=== PATIENT | female | born 1970 | race Caucasian/White ===

== ENCOUNTER 2017-11-19 01:29 | Inpatient (IN) | payer BC, SELFPAY ==
[2017-11-19] MEDS ORDERED: ONDANSETRON 4 MG/2 ML VIAL ONE ×2 (01:32→12:12)
[2017-11-19] MEDS ORDERED: KETOROLAC 30 MG/ML INJ ONE (01:32)
[2017-11-19] MEDS ORDERED: NA CHLORIDE 0.9% 1,000 ML ONE ×2 (01:32→03:17)
[2017-11-19] MEDS ORDERED: MORPHINE 4 MG/ML SYR ONE (01:32)
[2017-11-19 02:51] LABS: Absolute Lymphocytes (CBC) 1.5 K/uL (0.7-4.9); Absolute Monocytes 0.2 K/uL (0.1-1.3); Basophils % 1.1 % (0-1.3); Eosinophils % 0.5 % (0-4.4); Hematocrit 57.7 % (36.0-45.0); Lymphocytes % 14.2 % (15.3-44.8); MCH 32.4 pg (27.0-35.0); MPV 11.1 fL (7.6-11.3); Monocytes % 1.4 % (3.3-12.3); RBC Red Blood Cell Count 5.95 M/uL (3.86-4.86)
[2017-11-19 02:57] LABS: Potassium 3.5 mEq/L (3.6-5.0)
[2017-11-19 03:04] LABS: Albumin 4.7 g/dL (3.2-5.5); Bilirubin Direct 0.3 mg/dL (0-0.2); Bilirubin Total 1.7 mg/dL (0.3-1.2)
[2017-11-19] MEDS ORDERED: NA CHLORIDE 0.9% 100 ML IV ONE (03:17)
[2017-11-19] MEDS ORDERED: TAMSULOSIN 0.4 MG SR CAP ONE (03:17)
[2017-11-19] MEDS ORDERED: CEFTRIAXONE 1000 MG/VIAL ONE (03:17)
[2017-11-19] MEDS ORDERED: Levofloxacin500mg IV 500 MG/100 ML BAG IV ONE (04:33)
--- NOTE | 2017-11-19 04:34 | EDPHYS ---
Physician Documentation [facility] Name: Desire Green Age: 47 yrs Sex: Female : 1970 Arrival Date: 11/19/2017 Time: 01:30 Bed 5 Private MD: ED Physician Celestine Cha HPI: 11/19 02:30 This 47 yrs old Female presents to ER via EMS with complaints of abdominal snw pain. 02:30 The patient presents with abdominal pain right lower quadrant. Onset: The snw symptoms/episode began/occurred suddenly, 24 hour(s) ago, and became persistent. The symptoms radiate to right back. The symptoms are described as sharp, stabbing. Severity of pain: At its worst the pain was severe. The patient has experienced similar episodes in the past. It is unknown whether or not the patient has recently seen a physician. 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 - Social history:: Smoking status: Patient uses tobacco products, smokes one pack cigarettes per day. ROS: 02:30 Eyes: Negative for injury, pain, redness, and discharge, ENT: Negative for injury, snw pain, and discharge, Neck: Negative for injury, pain, and swelling, Cardiovascular: Negative for chest pain, palpitations, and edema, Respiratory: Negative for shortness of breath, cough, wheezing, and pleuritic chest pain, : Negative for injury, bleeding, discharge, and swelling, MS/Extremity: Negative for injury and deformity, Skin: Negative for injury, rash, and discoloration, Neuro: Negative for headache, weakness, numbness, tingling, and seizure. 02:30 Constitutional: Positive for malaise, poor PO intake. 02:30 Abdomen/GI: Positive for abdominal pain, nausea and vomiting. 02:30 Back: Positive for radiated pain. Exam: 03:10 Head/Face: Normocephalic, atraumatic. Eyes: Pupils equal round and reactive to light, snw extra-ocular motions intact. Lids and lashes normal. Conjunctiva and sclera are non-icteric and not injected. Cornea within normal limits. Periorbital areas with no swelling, redness, or edema. ENT: Nares patent. No nasal discharge, no septal abnormalities noted. Tympanic membranes are normal and external auditory canals are clear. Oropharynx with no redness, swelling, or masses, exudates, or evidence of obstruction, uvula midline. Mucous membranes moist. Neck: Trachea midline, no thyromegaly or masses palpated, and no cervical lymphadenopathy. Supple, full range of motion without nuchal rigidity, or vertebral point tenderness. No Meningismus. Chest/axilla: Normal chest wall appearance and motion. Nontender with no deformity. No lesions are appreciated. Cardiovascular: Regular rate and rhythm with a normal S1 and S2. No gallops, murmurs, or rubs. Normal PMI, no JVD. No pulse deficits. Respiratory: Lungs have equal breath sounds bilaterally, clear to auscultation and percussion. No rales, rhonchi or wheezes noted. No increased work of breathing, no retractions or nasal flaring. 03:10 MS/ Extremity: Pulses equal, no cyanosis. Neurovascular intact. Full, normal range of motion. Neuro: Awake and alert, GCS 15, oriented to person, place, time, and situation. Cranial nerves II-XII grossly intact. Motor strength 5/5 in all extremities. Sensory grossly intact. Cerebellar exam normal. Normal gait. 03:10 Constitutional: The patient appears alert, anxious, frail, dry, weathered 03:10 Abdomen/GI: Inspection: abdomen appears normal, Bowel sounds: normal, Palpation: moderate abdominal tenderness, in the posterior aspect of right lateral abdomen, right upper quadrant and right lower quadrant. 03:10 Skin: Appearance: Color: bronzed, Temperature: normal temperature, Moisture: dry, Turgor: is poor. Vital Signs: 01:30 BP 146 / 97; Pulse 104; Resp 30; Temp 98.1; Pulse Ox 100% on R/A; Weight 44.45 kg (R); aa1 Height 5 ft. 2 in. (157.48 cm); Pain 10/10; 02:05 BP 109 / 70; Pulse 78; Resp 18; Pulse Ox 97% on R/A; tl2 02:44 BP 109 / 66; Pulse 79; Resp 18; Pulse Ox 97% on R/A; Pain 5/10; tl2 04:26 BP 98 / 56; Pulse 86; Resp 16; Pulse Ox 99% on R/A; Pain 0/10; ao 05:55 BP 101 / 74; Pulse 82; Resp 16; Pulse Ox 99% on R/A; Pain 0/10; ao 01:30 Body Mass Index 17.92 (44.45 kg, 157.48 cm) aa1 MDM: 01:52 Patient medically screened. snw 03:09 Data reviewed: vital signs, nurses notes. Data interpreted: Pulse oximetry: on room air snw is 97 %. Counseling: I had a detailed discussion with the patient and/or guardian regarding: the historical points, exam findings, and any diagnostic results supporting the discharge/admit diagnosis, lab results, radiology results, the need for outpatient follow up, to return to the emergency department if symptoms worsen or persist or if there are any questions or concerns that arise at home, smoking cessation. Special discussion: Based on the patient's Hx, exam, and Dx evaluation, there is no indication for emergent surgery or inpatient Tx. It is understood by the patient/guardian that if the Sx's persist or worsen they need to return immediately for re-evaluation. Based on the history and exam findings, there is no indication for further emergent testing or inpatient evaluation. I discussed with the patient/guardian the need to see the primary care provider for further evaluation of the symptoms. I discussed with the patient/guardian the need to see the urologist for further evaluation of the symptoms. 03:14 Physician consultation: Celestine Cha MD was contacted at 03:14, regarding patient's snw condition. Awaiting: labs results, CT scan results. 11/19 01:41 Order name: Amylase, Serum tl2 11/19 01:41 Order name: Basic Metabolic Panel tl2 11/19 01:41 Order name: CBC with Diff tl2 11/19 01:41 Order name: Creatinine for Radiology tl2 11/19 01:41 Order name: Hepatic Function tl2 11/19 01:41 Order name: Lipase tl2 11/19 01:41 Order name: Urine Microscopic Only tl2 11/19 02:53 Order name: CBC with Automated Diff; Complete Time: 03:08 EDMS 11/19 02:58 Order name: Basic Metabolic Panel; Complete Time: 03:08 EDMT 11/19 02:58 Order name: Lipase; Complete Time: 03:08 EDMT 11/19 03:04 Order name: Liver (Hepatic) Function; Complete Time: 03:08 EDMT 11/19 03:04 Order name: Amylase Level; Complete Time: 03:08 EDMT 11/19 04:57 Order name: Urine Microscopic Only EDMS 11/19 05:01 Order name: Blood Culture EDMT 11/19 04:57 Order name: Stone Protocol EDMT 11/19 05:01 Order name: Urine Culture EDMT 11/19 05:25 Order name: Comprehensive Metabolic Panel EDMT 11/19 05:25 Order name: Comprehensive Metabolic Panel EDMT 11/19 05:25 Order name: Protime (+INR) EDMT 11/19 05:25 Order name: Protime (+INR) EDMT 11/19 05:25 Order name: PTT, Activated Partial Thromb EDMT 11/19 01:41 Order name: Urine Test (obtain specimen); Complete Time: 03:53 tl2 11/19 01:41 Order name: IV Saline Lock; Complete Time: 01:41 tl2 11/19 01:41 Order name: Labs collected and sent; Complete Time: 01:41 tl2 11/19 01:41 Order name: Urine Dipstick-Ancillary (obtain specimen); Complete Time: 03:53 tl2 11/19 04:39 Order name: NPO; Complete Time: 04:41 [facility] 11/19 05:25 Order name: CONS Pharmacy Consult EDMT 11/19 05:25 Order name: CONS Physician Consult [facility] 11/19 05:25 Order name: NPO [facility] Administered Medications: 01:41 Drug: morphine 4 mg Route: IVP; Site: left antecubital; tl2 02:43 Follow up: Response: No adverse reaction; Pain is decreased tl2 01:41 Drug: Zofran 4 mg Route: IVP; Site: left antecubital; tl2 02:43 Follow up: Response: No adverse reaction; Nausea is decreased tl2 01:41 Drug: TORadol 30 mg Route: IVP; Site: left antecubital; tl2 02:43 Follow up: Response: No adverse reaction; Pain is decreased tl2 01:41 Drug: NS 0.9% 1000 ml Route: IV; Rate: 1000 ml; Site: left antecubital; tl2 02:44 Follow up: IV Status: Completed infusion; IV Intake: 1000ml tl2 03:15 Drug: NS 0.9% 1000 ml Route: IV; Rate: 1 bolus; Site: left antecubital; ao 04:50 Follow up: IV Status: Completed infusion; IV Intake: 1000ml ao 03:27 Drug: Rocephin 1 grams Route: IV; Rate: calculated rate; Site: left antecubital; ao 04:46 Follow up: IV Status: Completed infusion; IV Intake: 100ml ao 03:27 Drug: Flomax 0.4 mg Route: PO; ao 04:50 Follow up: Response: No adverse reaction ao 04:36 Drug: levofloxacin 500 mg Volume: 100 ml; Route: IVPB; Infused Over: 60 mins; Site: ao left antecubital; 05:29 Follow up: IV Status: Completed infusion; IV Intake: 100ml ao 04:40 Drug: NS 0.9% with KCl 20 mEq/L 1000 ml {Note: As verbally ordered by Dr cha to be ao run at 125 ML/HR.} Route: IV; Rate: ml/hr; Site: left antecubital; 05:29 Follow up: IV Status: Infusion continued upon admission ao Disposition: 04:38 Co-signature as Attending Physician, Celestine Cha MD I agree with the assessment and vernell plan of care. Disposition: 11/19/17 04:34 Hospitalization ordered by Ryan Vazquez for Inpatient Admission. Preliminary diagnosis are Abdominal tenderness, Acute tubulo-interstitial nephritis, Hydronephrosis with renal and ureteral calculous obstruction - 9 mm proximal ureteral calculi, Hypokalemia. - Bed requested for Telemetry/MedSurg (Inpatient). - Status is Inpatient Admission. ao - Condition is Stable. - Problem is new. - Symptoms have improved. UTI on Admission? Yes Signatures: Dispatcher [employer] EDMT Becca Corona RN RN mw Kern, Alissa, RN RN aa1 Celestine Cha MD MD cha Therrien, Shelly, BAILING MACHINE OPERATOR-C BAILING MACHINE OPERATOR-Randall Diehl em1 Trever Powell RN RN ao Knox, Taylor, RN RN tl2 Corrections: (The following items were deleted from the chart) 06:10 02:13 Stone Protocol+CT.RAD.BRZ ordered. snw ao 06: 03:30 Urine Culture+BA.LAB.BRZ ordered. vernell ao 06: 03:30 BLOOD CULTURE*+BA.LAB.BRZ ordered. [facility] ao : 04:11 URINE DIPSTICK--ANCILLARY+U.LAB.BRZ ordered. em ao : 04:11 URINE --ANCILLARY+UC.LAB.BRZ ordered. [facility] ao :10 04:39 Abdomen 1 View (KUB)+RAD.RAD.BRZ ordered. [facility] ao
--- NOTE | 2017-11-19 04:34 | ER ---
Nurse's Notes [facility] Name: Desire Green Age: 47 yrs Sex: Female : 1970 Arrival Date: 11/19/2017 Time: 01:30 Bed 5 Private MD: Diagnosis: Abdominal tenderness;Acute tubulo-interstitial nephritis;Hydronephrosis with renal and ureteral calculous obstruction-9 mm proximal ureteral calculi;Hypokalemia Presentation: 11/19 01:30 Presenting complaint: EMS states: pt c/o R sided abd pain x 24 hrs that radiates to aa1 back. Also reports N/V. Transition of care: patient was not received from another setting of care. Onset of symptoms was November 18, 2017. Care prior to arrival: None. 01:30 Method Of Arrival: EMS: [facility] aa1 01:30 Acuity: ALISON 3 aa1 Triage Assessment: 01:44 General: Appears in no apparent distress. uncomfortable, cachectic, Behavior is aa1 anxious, restless. Pain: Complains of pain in right upper quadrant and right lower quadrant Pain radiates to back Pain currently is 10 out of 10 on a pain scale. Quality of pain is described as sharp, shooting, stabbing, Is continuous. Neuro: Level of Consciousness is awake, alert, obeys commands, Oriented to person, place, time, situation. Respiratory: Airway is patent Respiratory effort is even, unlabored, Respiratory pattern is regular, symmetrical. GI: Abdomen is non-distended, Reports lower abdominal pain, upper abdominal pain, nausea, vomiting. Derm: Skin is intact, is healthy with good turgor, Skin is pink, warm \T\ dry. 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 - Social history:: Smoking status: Patient uses tobacco products, smokes one pack cigarettes per day. Screenin:54 Abuse screen: Denies threats or abuse. Nutritional screening: No deficits noted. tl2 Tuberculosis screening: No symptoms or risk factors identified. Fall Risk None identified. Assessment: 01:54 General: see triage assessment. tl2 02:49 Reassessment: Patient appears in no apparent distress at this time. Patient and/or ao family updated on plan of care and expected duration. Pain level reassessed. Patient resting with no SS of distress. 03:52 Reassessment: Patient appears in no apparent distress at this time. Patient and/or tl2 family updated on plan of care and expected duration. Pain level reassessed. Patient is alert, oriented x 3, equal unlabored respirations, skin warm/dry/pink. 04:50 Reassessment: Patient appears in no apparent distress at this time. Patient and/or ao family updated on plan of care and expected duration. Pain level reassessed. Patient is alert, oriented x 3, equal unlabored respirations, skin warm/dry/pink. 05:55 Reassessment: Patient and/or family updated on plan of care and expected duration. Pain ao level reassessed. Patient is alert, oriented x 3, equal unlabored respirations, skin warm/dry/pink. Report called to NAEEM Jain. Patient o be taken to her room. Vital Signs: 01:30 BP 146 / 97; Pulse 104; Resp 30; Temp 98.1; Pulse Ox 100% on R/A; Weight 44.45 kg (R); aa1 Height 5 ft. 2 in. (157.48 cm); Pain 10/10; 02:05 BP 109 / 70; Pulse 78; Resp 18; Pulse Ox 97% on R/A; tl2 02:44 BP 109 / 66; Pulse 79; Resp 18; Pulse Ox 97% on R/A; Pain 5/10; tl2 04:26 BP 98 / 56; Pulse 86; Resp 16; Pulse Ox 99% on R/A; Pain 0/10; ao 05:55 BP 101 / 74; Pulse 82; Resp 16; Pulse Ox 99% on R/A; Pain 0/10; ao 01:30 Body Mass Index 17.92 (44.45 kg, 157.48 cm) aa1 ED Course: 01:30 Patient arrived in ED. em1 01:30 Arm band placed on right wrist. Patient placed in an exam room, on a stretcher. aa1 01:35 Patient has correct armband on for positive identification. Placed in gown. Bed in low aa1 position. Call light in reach. Pulse ox on. NIBP on. Warm blanket given. 01:35 Initial lab(s) drawn, by me, sent to lab. Inserted saline lock: 22 gauge in right aa1 antecubital area, using aseptic technique. Blood collected. 01:43 Triage completed. aa1 01:52 Kamla Corcoran FNP-C is [facility]. snw 01:52 Celestine Cha MD is Attending Physician. snw 02:30 Trever Powell RN is Primary Nurse. ao 03:50 First set of blood cultures drawn by me. mt 03:50 Inserted saline lock: 22 gauge in right forearm, using aseptic technique. mt 04:10 Second set of blood cultures drawn. mt 04:33 Ryan Vazquez MD is Hospitalizing Provider. vernell 04:57 Stone Protocol In Process Unspecified. EDMS 05:20 Urine Microscopic Only Sent. ao 05:20 Lipase Sent. ao 05:21 Hepatic Function Sent. ao 05:21 Creatinine for Radiology Sent. ao 05:21 CBC with Diff Sent. ao 05:21 Basic Metabolic Panel Sent. ao 05:21 Amylase, Serum Sent. ao 05:23 Urine Microscopic Only Sent. ao 05:32 No provider procedures requiring assistance completed. Patient admitted, IV remains in ao place. Administered Medications: 01:41 Drug: morphine 4 mg Route: IVP; Site: left antecubital; tl2 02:43 Follow up: Response: No adverse reaction; Pain is decreased tl2 01:41 Drug: Zofran 4 mg Route: IVP; Site: left antecubital; tl2 02:43 Follow up: Response: No adverse reaction; Nausea is decreased tl2 01:41 Drug: TORadol 30 mg Route: IVP; Site: left antecubital; tl2 02:43 Follow up: Response: No adverse reaction; Pain is decreased tl2 01:41 Drug: NS 0.9% 1000 ml Route: IV; Rate: 1000 ml; Site: left antecubital; tl2 02:44 Follow up: IV Status: Completed infusion; IV Intake: 1000ml tl2 03:15 Drug: NS 0.9% 1000 ml Route: IV; Rate: 1 bolus; Site: left antecubital; ao 04:50 Follow up: IV Status: Completed infusion; IV Intake: 1000ml ao 03:27 Drug: Rocephin 1 grams Route: IV; Rate: calculated rate; Site: left antecubital; ao 04:46 Follow up: IV Status: Completed infusion; IV Intake: 100ml ao 03:27 Drug: Flomax 0.4 mg Route: PO; ao 04:50 Follow up: Response: No adverse reaction ao 04:36 Drug: levofloxacin 500 mg Volume: 100 ml; Route: IVPB; Infused Over: 60 mins; Site: ao left antecubital; 05:29 Follow up: IV Status: Completed infusion; IV Intake: 100ml ao 04:40 Drug: NS 0.9% with KCl 20 mEq/L 1000 ml {Note: As verbally ordered by Dr cha to be ao run at 125 ML/HR.} Route: IV; Rate: ml/hr; Site: left antecubital; 05:29 Follow up: IV Status: Infusion continued upon admission ao Intake: 02:44 IV: 1000ml; Total: 1000ml. tl2 04:46 IV: 100ml; Total: 1100ml. ao 04:50 IV: 1000ml; Total: 2100ml. ao 05:29 IV: 100ml; Total: 2200ml. ao Outcome: 04:34 Decision to Hospitalize by Provider. vernell 05:32 Admitted to Tele accompanied by tech, room 410, with chart, Report called to NAEEM Jain ao 05:32 Condition: stable 05:32 Instructed on the need for admit. 06:10 Patient left the ED. ao Signatures: Dispatcher [employer] EDMS Kelle Valderrama RN RN aa1 Celestine Cha MD MD cha Therrien, Shelly, REJECT OPENER AND FILLER-C REJECT OPENER AND FILLER-Randall Diehl em1 Trever Powell RN RN ao Knox, Taylor, RN RN tl2 Isadora Lombardo w[place] Corrections: (The following items were deleted from the chart) 04:44 04:43 NS 0.9% with KCl 20 mEq/L 1000 ml IV at ml/hr in left antecubital ao ao 06:10 05:22 URINE --ANCILLARY+UC.LAB.BRZ drawn and sent. ao ao 06:10 05:22 URINE DIPSTICK--ANCILLARY+U.LAB.BRZ drawn and sent. ao ao 06:10 05:22 BLOOD CULTURE*+BA.LAB.BRZ drawn and sent. ao ao 06:10 05: To radiology for Stone Protocol+CT.RAD.JESIKA. ao ao :23 Urine Culture+BA.LAB.JESIKA drawn and sent. ao ao : To radiology for Abdomen 1 View (KUB)+RAD.RAD.JESIKA. ao ao
[2017-11-19] MEDS ORDERED: NS KCL 20MEQ 1,000 ML IV ONE (04:39)
[2017-11-19] MEDS ORDERED: ONDANSETRON 4 MG/2 ML VIAL IV PRN (05:22)
[2017-11-19] MEDS ORDERED: POTASSIUM CL SA 10 MEQ TAB PO ONE (06:12)
--- NOTE | 2017-11-19 06:58 | P.HP ---
Certification for Inpatient Patient admitted to: Inpatient With expected LOS: >2 Midnights Patient will require the following post-hospital care: None Practitioner: I am a practitioner with admitting privileges, knowledge of patient current condition, hospital course, and medical plan of care. Services: Services provided to patient in accordance with Admission requirements found in Title 42 Section 412.3 of the Code of Federal Regulations Patient History Date of Service: 11/19/17 Reason for admission: Nephrolithiasis with hydronephrosis History of Present Illness: Patient is a 47-year-old female who presents to the hospital with flank tenderness. Patient has a history of polycythemia and nephrolithiasis. Patient was having severe pain and she called EMS. EMS brought her to the hospital and she was seen in the emergency room. In the ER she had a CT performed which revealed nephrolithiasis/9 mm stone/with hydronephrosis. Patient was admitted to the the hospital with urology consultation. ER physician spoke with Urology and we're going to make patient NPO after midnight. Continue with IV hydration and pain medication. Also will continue with IV antibiotics. Allergies No Known Drug Allergies Allergy (Unverified 01/31/15 15:56) Unknown No Known Allergi Allergy (Uncoded 06/23/17 18:04) Unknown No Known Allergies Allergy (Uncoded 11/19/17 06:15) Unknown Home Medications: NK [No Home Meds] 11/19/17 - Past Medical/Surgical History Has patient received pneumonia vaccine in the past: Yes Diabetic: No -: Kidney stones -: Polycythemia -: Kidney stents - Family History Mother Medical History: Hypertension, Diabetes - Social History Smoking Status: Current every day smoker Alcohol use: No CD- Drugs: No Caffeine use: Yes Review of Systems 10-point ROS is otherwise unremarkable Physical Examination - Vital Signs Temperature: 99.1 F Blood Pressure: 96/70 Pulse: 93 Respirations: 18 Pulse Ox (%): 99 - Physical Exam General: Alert, In no apparent distress, Oriented x3 HEENT: Atraumatic, PERRLA, Mucous membr. moist/pink, EOMI, Sclerae nonicteric Neck: Supple, 2+ carotid pulse no bruit, No LAD, Without JVD or thyroid abnormality Respiratory: Clear to auscultation bilaterally, Normal air movement Cardiovascular: Regular rate/rhythm, Normal S1 S2, No murmurs Gastrointestinal: Normal bowel sounds, Soft and benign, Non-distended, No rebound, No guarding, Tenderness (Flank) Musculoskeletal: No clubbing, No swelling, No tenderness Integumentary: No rashes Neurological: Normal gait, Normal speech, Normal strength at 5/5 x4 extr, Normal tone, Sensation intact, Cranial nerves 3-12 intact, Normal affect Lymphatics: No axilla or inguinal lymphadenopathy - Studies Laboratory Data (last 24 hrs) 11/19/17 02:00: Creatinine Cancelled 11/19/17 02:00: Sodium 133 L, Potassium 3.5 L, BUN 11, Creatinine 0.88, Glucose 157 H, Total Bilirubin 1.7 H, AST 44 H, ALT 45, Alkaline Phosphatase 81, Amylase 50, Lipase 24 11/19/17 02:00: WBC 10.9, Hgb 19.3 H, Hct 57.7 H, Plt Count 165 11/19/17 01:41: Creatinine Cancelled 11/19/17 01:41: WBC Cancelled, Hgb Cancelled, Hct Cancelled, Plt Count Cancelled 11/19/17 01:41: Sodium Cancelled, Potassium Cancelled, BUN Cancelled, Creatinine Cancelled, Glucose Cancelled, Total Bilirubin Cancelled, AST Cancelled, ALT Cancelled, Alkaline Phosphatase Cancelled, Amylase Cancelled, Lipase Cancelled Assessment & Plan - Problems (Diagnosis) (1) Nephrolithiasis Current Visit: Yes Status: Acute (2) Hydronephrosis Current Visit: Yes Status: Acute (3) Polycythemia Current Visit: Yes Status: Acute (4) Tobacco abuse Current Visit: Yes Status: Acute - Plan Plan: 1. Continue with IV hydration 2. Continue with IV antibiotics 3. Continue with pain control 4. NPO 5. Urology consultation for possible cystoscopy 6. Monitor labs closely for renal failure 7. GI and DVT prophylaxis Discharge Plan: Home Plan to discharge in: 48 Hours - Advance Directives Does patient have a Living Will: No Does patient have a Durable POA for Healthcare: No - Code Status/Comfort Care Code Status Assessed: Yes Code Status: Full Code Critical Care: No Time Spent Managing PTS Care (In Minutes): 50
[2017-11-19] MEDS ORDERED: PNEUMOCOCCAL VACCINE 0.5 ML IMVAC ONE (08:00)
--- NOTE | 2017-11-19 08:15 | RAD REPORT ---
EXAM DESCRIPTION: CT - Stone Protocol - 11/19/2017 6:42 am CLINICAL HISTORY: Right-sided abdominal pain, flank pain, nausea and vomiting. A preliminary written report was provided at the time of the study, and the report was reviewed prio r to final dictation. COMPARISON: CT June 2017 TECHNIQUE: Axial 5 mm thick images were obtained without oral or IV contrast. The [id number] span s the entirety of the system including uppermost abdomen and lung bases. All CT scans are performed using dose optimization technique as appropriate and may include automated exposure control or mA/KV adjustment according to patient size. FINDINGS: Moderate dilatation of the right side pelvis and calices secondary to an 11 millimeter renzo cification near the UPJ. This may be a single calcification or 2 abutting calcifications. Right renal parenchymal edema and perinephric stranding are present. A 2 millimeter nonobstructing calyx calcifi cation is present posterior lower pole on the right. A 3 millimeter calcification is present in the u pper pole calyx on the left. There is some mineralization of the renal pyramids of both kidneys. Stranding is seen along the course of the right ureter but no additional calculi seen. No calculus wi thin the contracted urinary bladder. No suspicious renal masses. Isodense masses and pyelonephritis a re not excluded on a stone protocol CT scan. Small calcified uterine fibroid. No suspicious ovarian o r adnexal finding. A 16 millimeter low-attenuation exophytic mass posterior left kidney has not mcmillan ed from prior study. Imaged portions of the liver, spleen and pancreas show no suspicious findings on non-contrast imaging . No gallbladder or biliary tree abnormality identified. No significant adrenal finding. No suspicious bowel findings. No hernia, mass or bulky lymphadenopathy noted. No free air, free fluid or inflammatory stranding. No significant bony abnormality. IMPRESSION: Right-side moderate pelvis and caliceal dilatation secondary to an obstructing 11 millim eter single or clustered calcification at the UPJ. Bilateral nonobstructing calculi and bilateral mild nephrocalcinosis. Isodense masses and pyelonephritis are not excluded on stone protocol technique.
[2017-11-19] MEDS ORDERED: CEFTRIAXONE 1 GM/NS 50 ML 1 GM/50 ML BAG IV SCH (09:00)
[2017-11-19] MEDS: CEFTRIAXONE/SWI 1gm 1 GM/10 ML SYR IV SCH (09:03)
[2017-11-19] MEDS: NA CHLORIDE 0.9% 1,000 ML IV SCH ×2 (09:04→16:19)
[2017-11-19 09:38] VITALS: BMI 17.9
[2017-11-19 11:45] LABS: Urine Appearance CLOUDY; Urine Bilirubin NEGATIVE (NEG); Urine Blood 3+ (NEG); Urine Color YELLOW; Urine Glucose NEGATIVE (NEG); Urine Microscopic Reflex ORDER UMIC; Urine Protein TRACE (NEG); Urine pH 6.5 (5.0-7.0)
[2017-11-19] MEDS ORDERED: FENTANYL CITR 100 MCG/2 ML ONE (12:11)
[2017-11-19] MEDS ORDERED: MIDAZOLAM HCL 2 MG/2 ML INJ ONE (12:11)
[2017-11-19] MEDS ORDERED: PROPOFOL 200 MG/20 ML VIAL IV ONE (12:11)
[2017-11-19] MEDS ORDERED: LIDOCAINE 2% MPF 5 ML VIAL ONE (12:12)
[2017-11-19 12:18] LABS: Urine Bacteria 20-50 /HPF (<20); Urine Culture Reflex Order NOT NEEDED; Urine RBC <5 /HPF (NONE SEEN)
[2017-11-19] MEDS ORDERED: GENTAMICIN 80 MG/100 ML BAG 80 MG/100 ML BAG IV ONE (12:28)
[2017-11-19] MEDS ORDERED: Phenylephrine HCl 10 MG/ML 1 ML VIAL ONE (12:58)
--- NOTE | 2017-11-19 13:30 | P.PN ---
Subjective Date of Service: 11/19/17 Primary Care Provider: none Chief Complaint: Nephrolithiasis with hydronephrosis Subjective: Other (Patient with flank pain) Physical Examination - Vital Signs Temperature: 102.2 F Blood Pressure: 110/75 Pulse: 93 Respirations: 18 Pulse Ox (%): 98 - Physical Exam General: Alert, In no apparent distress, Cooperative HEENT: Atraumatic Neck: Supple Respiratory: Clear to auscultation bilaterally, Normal air movement Cardiovascular: Normal pulses, Regular rate/rhythm Gastrointestinal: Normal bowel sounds, Soft and benign, Non-distended, Tenderness (right flank pain) Musculoskeletal: No erythema, No tenderness, No warmth Integumentary: No erythema, No warmth, No cyanosis Neurological: Normal speech, Normal strength at 5/5 x4 extr, Normal tone, Normal affect Lymphatics: No axilla or inguinal lymphadenopathy - Studies Laboratory Data (last 24 hrs) 11/19/17 02:00: Creatinine Cancelled 11/19/17 02:00: Sodium 133 L, Potassium 3.5 L, BUN 11, Creatinine 0.88, Glucose 157 H, Total Bilirubin 1.7 H, AST 44 H, ALT 45, Alkaline Phosphatase 81, Amylase 50, Lipase 24 11/19/17 02:00: WBC 10.9, Hgb 19.3 H, Hct 57.7 H, Plt Count 165 11/19/17 01:41: Creatinine Cancelled 11/19/17 01:41: WBC Cancelled, Hgb Cancelled, Hct Cancelled, Plt Count Cancelled 11/19/17 01:41: Sodium Cancelled, Potassium Cancelled, BUN Cancelled, Creatinine Cancelled, Glucose Cancelled, Total Bilirubin Cancelled, AST Cancelled, ALT Cancelled, Alkaline Phosphatase Cancelled, Amylase Cancelled, Lipase Cancelled Medications List Reviewed: Yes Assessment & Plan - Problems (Diagnosis) (1) Ureterolithiasis Current Visit: Yes Status: Acute Plan: Patient with 11 mm stone to the UPJ. Right moderate pelvic and caliceal hydronephrosis noted. Likely with pyelonephritis. Will continue with IV antibiotic therapy. Urine culture obtained. Patient NPO for possible urological intervention. Urology consulted. Will provide medication for pain. Will continue with IV fluids. (2) Pyelonephritis Current Visit: Yes Status: Suspected Plan: Continue with IV antibiotic therapy. Urine and blood cultures obtained. (3) Renal insufficiency Current Visit: Yes Status: Acute Plan: Likely from dehydration. Will continue with IV fluids. (4) Dehydration Current Visit: Yes Status: Acute Plan: Continue with IV fluids. Will monitor and adjust electrolytes. (5) Hydronephrosis Current Visit: Yes Status: Acute Plan: Right-sided hydronephrosis noted with stone. Patient NPO for possible urological intervention. Urology consulted. Qualifiers: Hydronephrosis type: with ureteropelvic junction obstruction Qualified Code (s): Q62.11 - Congenital occlusion of ureteropelvic junction (6) Nephrolithiasis Current Visit: Yes Status: Acute Plan: Continue with above plan of care. Bilateral obstructing nephrolithiasis also noted. (7) Polycythemia Current Visit: Yes Status: Acute Plan: Will monitor and adjust. This may be related to underlying tobacco abuse. (8) Tobacco abuse Current Visit: Yes Status: Chronic Plan: Tobacco cessation will be addressed in detail. (9) Hyponatremia Current Visit: Yes Status: Acute Plan: Will monitor and replace with IV fluids. (10) Hypokalemia Current Visit: Yes Status: Acute Plan: Will monitor and replace with protocol. (11) Elevated liver function tests Current Visit: Yes Status: Acute Plan: Will send for hepatitis panel. Discharge Plan: Home Plan to discharge in: Greater than 2 days Time Spent Managing Pts Care (In Minutes): 55
[2017-11-19] MEDS ORDERED: SODIUM CHLORIDE 0.9% 10ML INJ IV PRN (13:35)
--- NOTE | 2017-11-19 13:35 | RAD REPORT ---
EXAM DESCRIPTION: RAD - Urography Retrograde - 11/19/2017 1:27 pm CLINICAL HISTORY: Right-sided stent placement. COMPARISON: None. FINDINGS: Fluoroscopic observation of the abdomen was performed as part of a right ureter stent plac ement procedure. Details of the procedure are not available.
[2017-11-19 13:46] VITALS: O2SAT 98
[2017-11-19] MEDS: MORPHINE 4 MG/ML SYR IV PRN (16:21)
--- NOTE | 2017-11-19 16:56 | CON ---
History Of Present Illness: A 47-year-old lady brought to the hospital for right flank tenderness. She has a history of polycythemia and kidney stones, was having severe pain and fever. Called EMS th at brought her to the emergency room. She had a CT scan showing a 9 mm stone with severe hydronephro sis just below the right UPJ. She also has bilateral nephrocalcinosis. She was admitted for stent p lacement. She is made n.p.o. after midnight. Allergies: NO KNOWN DRUG ALLERGIES. Home Medication: No medications. Past Medical History: No diabetes. Positive history for kidney stones, polycythemia and kidney sten ts placed in the past for previous kidney stones. Family History: Significant for hypertension and diabetes. Social History: Current everyday smoker. No alcohol use. Some caffeine use. Review of Systems: A 10-point review of systems otherwise unremarkable. Physical Examination: General: Afebrile. Stable. HEENT: Atraumatic, normocephalic. Neck: Supple. Cardiovascular: S1-S2. Gastrointestinal: Positive right flank tenderness. Extremities: Normal range of motion. Laboratory Review: Chem 7, CBC all reviewed. No severe abnormalities. UA showed 3+ blood and 3+ le ukocyte esterase. Chemistry, GFR were 69, potassium was slightly low at 3.5. Sodium 133. Hematolog y, H and H showed 19 and 58, very high H and H. Assessment: Right kidney stone. Also history of polycythemia. The patient is cysto right stent, po ssible blood donation electively. Should also need a urine culture per former tech. T-max was 102.2 . She is on Rocephin. We will give her gentamicin IV on-call. TOMÁS/LUDIN Voice ID: [id number] Report ID: [id number]
[2017-11-19] MEDS: ACETAMINOPHEN 500 MG TAB PO PRN (20:08)
[2017-11-20] MEDS: NA CHLORIDE 0.9% 1,000 ML IV SCH ×3 (02:37→22:44)
[2017-11-20] MEDS: ACETAMINOPHEN 500 MG TAB PO PRN ×2 (04:48→16:00)
[2017-11-20 06:58] LABS: ALT/SGPT 24 IU/L (10-60); AST/SGOT 25 IU/L (10-42); Albumin 2.2 g/dL (3.2-5.5); Alkaline Phosphatase 54 IU/L (42-121); BUN Blood Urea Nitrogen 6 mg/dL (6-20); Bicarbonate 19 mEq/L (21-31); Bilirubin Total 0.9 mg/dL (0.3-1.2); Glucose Level 94 mg/dL (65-120); Potassium 3.3 mEq/L (3.6-5.0); Protein, Total 4.5 g/dL (6.0-8.3); Sodium Level 132 mEq/L (135-145)
[2017-11-20 07:10] LABS: Protime INR 1.32
[2017-11-20 07:26] LABS: Absolute Lymphocytes (CBC) 0.8 K/uL (0.7-4.9); Absolute Monocytes 0.6 K/uL (0.1-1.3); Absolute Neutrophil 8.9 K/uL (1.8-8.0); Basophils % 0.7 % (0-1.3); Eosinophils % 1.6 % (0-4.4); Lymphocytes % 7.9 % (15.3-44.8); MCH 32.4 pg (27.0-35.0); MCV 97.1 fL (80-100); Monocytes % 5.8 % (3.3-12.3); RBC Red Blood Cell Count 4.22 M/uL (3.86-4.86)
[2017-11-20] MEDS: CEFTRIAXONE/SWI 1gm 1 GM/10 ML SYR IV SCH (08:46)
[2017-11-20] MEDS: PANTOPRAZOLE 40 MG INJ IVP SCH (08:46)
[2017-11-20] MEDS: POTASSIUM 25 MEQ EFFERV TAB PO SCH ×2 (11:27→20:20)
[2017-11-20] MEDS: MORPHINE 4 MG/ML SYR IV PRN ×2 (11:40→22:35)
--- NOTE | 2017-11-20 11:45 | RAD REPORT ---
EXAM DESCRIPTION: RAD - Abdomen 1 View (KUB) - 11/20/2017 10:41 am CLINICAL HISTORY: Obstructing kidney stone, ureteral stent COMPARISON: CT study November 19, intraoperative stent placement imaging November 19 FINDINGS: Double-pigtail stent has been placed in the right collecting system. The obstructing proxi mal ureteral calculus approximately 8 mm in size has not change position. No other stone or stone fra gments along the course of the stent. Phleboliths are seen. No obstruction, free air or pneumatosis. A few prominent air-filled small bowel loops are present. No significant bony findings IMPRESSION: Right-sided ureteral stent is in place. Proximal ureteral obstructing calculus stable in position from prior imaging.
--- NOTE | 2017-11-20 12:17 | PN ---
The patient is seen, examined, chart reviewed, and case discussed with RN. The patient is still havi ng significant pain on her right flank. The patient tolerated procedure well. Had stent placement d one yesterday by Dr. Morataya. Review of Systems: Negative except as above. Medications: Reviewed. Physical Examination: Vital Signs: Temperature 98.6, heart rate 63, blood pressure 91/62, respirations 16, O2 98% on room air. General: Awake, alert, oriented x3, in some mild distress, appears older than stated age. Cachectic female. BMI 17. CV: S1, S2. No murmurs. Respiratory: Moving air well bilaterally. No wheezing. Gastrointestinal: Abdomen is soft, nontender, nondistended. Positive bowel sounds. Extremities: No clubbing, cyanosis, or edema. Back: The patient does have some right flank pain. Neurologic: Nonfocal. Laboratory Data: Sodium 132, potassium 3.3, chloride 107, CO2 19, BUN 6, creatinine 0.55, glucose 94 , calcium 8, albumin 2.2. WBC 10.6, H and H 13.7, 41, platelets 103. Blood culture, no growth to da te. Urine culture shows 4+ gram-negative rods with ID and sensitivity pending. Repeat urine culture from a catheter specimen does not show any growth. Assessment And Plan: 1.Nephrolithiasis, status post stent. Appreciate Dr. Morataya's input. 2.Hydronephrosis improved. 3.Polycythemia nicotine dependence with cigarette smoking. 4.Pyelonephritis secondary to gram-negative rods. ID and sensitivity pending. Plan: Continue IV hydration and antibiotics. /LUDIN Voice ID: [id number] Report ID: [id number]
--- NOTE | 2017-11-20 13:36 | PN ---
Subjective: The patient is feeling well. Objective: The patient is growing gram-negative rods in her urine. Her potassium is slightly low. H and H are now normal at 13 and 41. No need for blood donation acutely. Assessment: Status post stent placement for stone on the right, pyelonephritis. Continue IV. Plan: Continue IV antibiotics. Await culture and sensitivity. Her Turner catheter was removed. Has a string left at the urethral meatus. Hold in the setting later. She will go home on 2 weeks of an tibiotics and then plan to do outpatient ESWL at that time. She may be ready tomorrow active culture and sensitivity. TOMÁS/LUDIN Voice ID: [id number] Report ID: [id number]
[2017-11-21] MEDS: NA CHLORIDE 0.9% 1,000 ML IV SCH ×2 (06:22→08:00)
[2017-11-21] MEDS: CEFTRIAXONE/SWI 1gm 1 GM/10 ML SYR IV SCH (08:22)
[2017-11-21] MEDS: POTASSIUM 25 MEQ EFFERV TAB PO SCH (08:22)
[2017-11-21] MEDS: PANTOPRAZOLE 40 MG INJ IVP SCH (08:22)
[2017-11-21 08:24] VITALS: BP 111/74; TEMP 100.4
--- NOTE | 2017-11-21 09:58 | P.DS ---
Admission Date: 11/19/17 (Hospitalist note) Discharge Date: 11/21/17 Primary Care Provider: none Disposition: ROUTINE DISCHARGE Discharge Condition: FAIR Reason for Admission: Nephrolithiasis with hydronephrosis Consultations: Dr. Morataya Procedures: A right ureteral stent Brief History of Present Illness: Patient is 47 years of age admitted with abdominal pain and hydronephrosis Hospital Course: Patient had nephrolithiasis had a stent placed for Dr. Morataya the time of discharge doing well has some slight abdominal pain significant improvement vital signs all Physical examination alert oriented responsive cooperative chest clear cardiovascular system all songs normal abdomen slight tenderness in the right flank labs reviewed polycythemia it also improved patient is an active smoker has been console not to smoke she is to be discharged home on Bactrim E. coli isolated in the urine as per Dr. Morataya's is instructions patient to remain on Bactrim for 2 weeks Vital Signs/Physical Exam: Temp Pulse Resp BP Pulse Ox 100.4 F 69 16 111/74 97 11/21/17 08:00 11/21/17 08:00 11/21/17 08:00 11/21/17 08:00 11/21/17 08:00 Laboratory Data at Discharge: WBC 10.6 K/uL (4.3-10.9) 11/20/17 05:41 Hgb 13.7 g/dL (12.0-15.0) D 11/20/17 05:41 Hct 41.0 % (36.0-45.0) D 11/20/17 05:41 Plt Count 103 K/uL (152-406) L D 11/20/17 05:41 PT 15.6 SECONDS (9.5-12.5) H 11/20/17 05:41 INR 1.32 11/20/17 05:41 APTT 29.1 SECONDS (24.3-36.9) 11/20/17 05:41 Sodium 132 mEq/L (135-145) L 11/20/17 05:41 Potassium 3.3 mEq/L (3.6-5.0) L 11/20/17 05:41 BUN 6 mg/dL (6-20) 11/20/17 05:41 Creatinine 0.55 mg/dL (0.44-1.00) 11/20/17 05:41 Glucose 94 mg/dL (65-120) 11/20/17 05:41 Total Bilirubin 0.9 mg/dL (0.3-1.2) 11/20/17 05:41 AST 25 IU/L (10-42) 11/20/17 05:41 ALT 24 IU/L (10-60) 11/20/17 05:41 Alkaline Phosphatase 54 IU/L (42-121) 11/20/17 05:41 Amylase 50 U/L (28-100) 11/19/17 02:00 Lipase 24 U/L (22-51) 11/19/17 02:00 Home Medications: Smz./Tmp. [Bactrim Ds 800 MG/160 MG] 1 tab PO BID 14 Days tab 11/21/17 New Medications: Smz./Tmp. [Bactrim Ds 800 MG/160 MG] 1 tab PO BID 14 Days tab Patient Discharge Instructions: Patient to follow up with Dr. Morataya in 1 or 2 weeks Diet: Regular Activity: Ad brad
--- NOTE | 2017-11-21 11:34 | PN ---
Subjective: The patient feels well. Objective: T-max 100.4, pulse rate 69, respiratory rate 16, BP 111/74, sats 97. The patient is tolerating her diet well. Intake 1692, output not measured. Laboratory Data: Her microbiology cultures showed E. coli that was pansensitive. Impression: Status post right stent placement for kidney stone and pyelonephritis. Plan: Bactrim DS 1 p.o. b.i.d. x14 days and then we will deal with the stone after that. I did order a KUB yesterday to check the stone and stent. It showed DJ sten in place and proximal ureteral calculus is in position as before. TOMÁS/LUDIN Voice ID: [id number] Report ID: [id number] MTDD
[2017-11-22 03:31] LABS: HBsAG Nonreactive (Nonreactive); Hepatitis A IgM Antibody Nonreactive
== END 2017-11-21 10:50 | disposition home or self-care (01) | DRG 694 ==
LOC: ER 01:29 → 4TH 04:34
PROVIDERS: ADMIT Hospitalist; ATTEND Internal Medicine Sleep Medicine
PROC: 0T768DZ Dilation of Right Ureter with Intraluminal Device, Via Natural or Artificial Opening Endoscopic (ICD-10-PCS; principal; 2017-11-19 13:00)
DX: N13.2 Hydronephrosis with renal and ureteral calculous obstruction (principal); E87.1 Hypo-osmolality and hyponatremia; N12 Tubulo-interstitial nephritis, not specified as acute or chronic; D75.1 Secondary polycythemia; E86.0 Dehydration; E87.6 Hypokalemia; F17.200 Nicotine dependence, unspecified, uncomplicated
CPT/HCPCS: 36415; 74018; 74176; 74420; 76377; 80048; 80053; 80074; 80076; 81003; 81015; 81025; 82150; 83690; 85025; 85610; 85730; 87040; 87077; 87086; 87088; 87186; 96361; 96365; 96375; 99285; C9113; J0696; J1580; J2250; J2370; J2405; J3010; J7030; Q9967

== ENCOUNTER 2017-12-07 09:19 | Day surgery (SDC) | payer BC ==
[2017-12-06 14:00] LABS: Absolute Lymphocytes (CBC) 2.9 K/uL (0.7-4.9); Absolute Monocytes 0.5 K/uL (0.1-1.3); Absolute Neutrophil 3.3 K/uL (1.8-8.0); Basophils % 0.4 % (0-1.3); Lymphocytes % 41.9 % (15.3-44.8); MCV 95.1 fL (80-100); MPV 9.5 fL (7.6-11.3); Monocytes % 6.6 % (3.3-12.3); RBC Red Blood Cell Count 4.52 M/uL (3.86-4.86)
[2017-12-06 14:06] LABS: Protime INR 0.96
[2017-12-06 14:10] LABS: Bicarbonate 24 mEq/L (21-31); Glucose Level 88 mg/dL (65-120); Potassium 3.5 mEq/L (3.6-5.0); Sodium Level 136 mEq/L (135-145)
[2017-12-06 14:11] LABS: BUN Blood Urea Nitrogen 15 mg/dL (6-20)
[2017-12-06 14:14] LABS: Phosphorus 3.2 mg/dL (2.5-4.3); Uric Acid 3.7 mg/dL (2.6-8.0)
--- NOTE | 2017-12-06 15:24 | EKG ---
Test Date: 2017-12-06 Test Time: 13:44:28 Wafer Production Worker: AMY MEASUREMENT RESULTS: Intervals: Rate: 76 NE: 112 QRSD: 88 QT: 372 QTc: 418 [place]: P: 72 NE: 112 QRS: 75 T: 63 INTERPRETIVE STATEMENTS: Normal sinus rhythm Minimal voltage criteria for LVH, may be normal variant Borderline ECG Compared to ECG 03/12/2013 10:15:10 Left ventricular hypertrophy now present Electronically Signed On 12-06-17 15:23:17 CDT by Stalin Truong
--- NOTE | 2017-12-06 15:37 | RAD REPORT ---
EXAM DESCRIPTION: Shawn Lopez (2 Views)12/06/2017 2:59 pm CLINICAL HISTORY: Abdominal pain/preop for lithotripsy COMPARISON: None FINDINGS: The lungs appear clear of acute infiltrate. The heart is normal size IMPRESSION: No acute abnormalities displayed
--- NOTE | 2017-12-07 10:19 | RAD REPORT ---
EXAM DESCRIPTION: RAD - Abdomen 1 View (KUB) - 12/07/2017 10:10 am CLINICAL HISTORY: Pain COMPARISON: 12/01/2017 FINDINGS: The bowel gas pattern is non-obstructive. No evidence of free air or pneumatosis. Double-J stent is present on the right, unchanged in position. Punctate calcification along the distal aspect of the stent in the right pelvis appears unchanged in position. Calcification more superiorly previo usly noted along the stent is likely still present a somewhat obscured as it overlaps with the cortex of the vertebral body.
[2017-12-07] MEDS ORDERED: Ringers Lactate 1,000 ML IV ONE (10:20)
[2017-12-07] MEDS ORDERED: GENTAMICIN 80 MG/100 ML BAG 80 MG/100 ML BAG IV ONE (10:21)
[2017-12-07] MEDS ORDERED: PROPOFOL 200 MG/20 ML VIAL IV ONE (11:12)
[2017-12-07] MEDS ORDERED: LIDOCAINE 2% MPF 5 ML VIAL ONE (11:13)
[2017-12-07] MEDS ORDERED: MIDAZOLAM HCL 2 MG/2 ML INJ ONE (11:13)
[2017-12-07] MEDS ORDERED: FENTANYL CITR 100 MCG/2 ML ONE (11:13)
[2017-12-07 11:24] LABS: Urine Appearance CLOUDY; Urine Bilirubin NEGATIVE (NEG); Urine Blood 3+ (NEG); Urine Color RED; Urine Glucose NEGATIVE (NEG); Urine Protein 2+ (NEG); Urine Specific Gravity 1.015 (1.005-1.030)
[2017-12-07 11:51] LABS: Urine Microscopic Reflex ORDER UMIC
[2017-12-07 12:32] LABS: Urine Bacteria <20 /HPF (<20); Urine Culture Reflex Order REFLEXED; Urine RBC >50 /HPF (NONE SEEN)
[2017-12-07] MEDS ORDERED: ONDANSETRON 4 MG/2 ML VIAL ONE ×2 (12:48→13:01)
[2017-12-07] MEDS ORDERED: MEPERIDINE HCL 25 MG/0.5 ML ONE (13:01)
[2017-12-07 13:26] VITALS: O2SAT 99
[2017-12-07 13:49] VITALS: BP 150/90; TEMP 97.6
== END 2017-12-07 14:18 | disposition home or self-care (01) ==
LOC: OR 09:19
PROVIDERS: ATTEND Urology
PROC: 0TF3XZZ Fragmentation in Right Kidney Pelvis, External Approach (ICD-10-PCS; principal; 2017-12-07 10:45)
DX: N20.2 Calculus of kidney with calculus of ureter (principal); Q62.39 Other obstructive defects of renal pelvis and ureter; F17.210 Nicotine dependence, cigarettes, uncomplicated; Z82.49 Family history of ischemic heart disease and other diseases of the circulatory system; Z83.3 Family history of diabetes mellitus; Z82.61 Family history of arthritis
CPT/HCPCS: 36415; 50590; 71046; 74018; 80048; 81003; 81015; 81025; 82310; 84100; 84550; 85025; 85610; 85730; 87086; 87088; 93005; J1580; J2175; J2250; J2405; J3010

== ENCOUNTER 2018-04-25 15:45 | Inpatient (IN) | payer BC ==
[2018-04-25] MEDS ORDERED: ACETAMINOPHEN 500 MG TAB PO PRN (16:02)
[2018-04-25] MEDS ORDERED: ONDANSETRON 4 MG/2 ML VIAL IV PRN (16:02)
[2018-04-25] MEDS ORDERED: CEFTRIAXONE 1 GM/NS 50 ML 1 GM/50 ML BAG IV SCH (16:09)
[2018-04-25] MEDS: NA CHLORIDE 0.9% 1,000 ML IV SCH ×2 (16:45→22:40)
[2018-04-25] MEDS ORDERED: NA CHLORIDE 0.9% 1,000 ML IV ONE (17:00)
[2018-04-25] MEDS ORDERED: CEFTRIAXONE/SWI 1gm 1 GM/10 ML SYR IV SCH (17:00)
[2018-04-25 17:08] LABS: Protime INR 1.18
[2018-04-25 17:09] LABS: Absolute Lymphocytes (CBC) 2.2 K/uL (0.7-4.9); Absolute Monocytes 1.2 K/uL (0.1-1.3); Absolute Neutrophil 7.2 K/uL (1.8-8.0); Basophils % 1.1 % (0-1.3); Lymphocytes % 20.3 % (15.3-44.8); MCH 33.2 pg (27.0-35.0); MCV 96.8 fL (80-100); MPV 9.7 fL (7.6-11.3); Monocytes % 11.3 % (3.3-12.3); RBC Red Blood Cell Count 4.54 M/uL (3.86-4.86)
[2018-04-25 17:19] LABS: Albumin 2.5 g/dL (3.4-5.0); Bilirubin Total 0.6 mg/dL (0.2-1.0); Protein, Total 6.7 g/dL (6.4-8.2)
[2018-04-25 17:46] VITALS: BMI 16.5
[2018-04-25] MEDS ORDERED: POTASSIUM 25 MEQ EFFERV TAB PO ONE (18:22)
[2018-04-25 18:57] LABS: Urine Appearance TURBID; Urine Blood 2+ (NEG); Urine Glucose NEGATIVE (NEG); Urine Protein 2+ (NEG); Urine Specific Gravity 1.025 (1.005-1.030)
[2018-04-25 18:59] LABS: Urine Color DK YELLOW
[2018-04-25 19:00] LABS: Urine Microscopic Reflex ORDER UMIC
--- NOTE | 2018-04-25 19:23 | EKG ---
Test Date: 2018-04-25 Test Time: 17:05:32 Machine Veneer Repairer: SANDY MEASUREMENT RESULTS: Intervals: Rate: 65 SD: 116 QRSD: 90 QT: 412 QTc: 428 [place]: P: 55 SD: 116 QRS: 56 T: 55 INTERPRETIVE STATEMENTS: Normal sinus rhythm Minimal voltage criteria for LVH, may be normal variant Borderline ECG Compared to ECG 12/06/2017 13:44:28 No significant changes Electronically Signed On 04-25-18 19:22:32 CDT by Ben Nayak
[2018-04-25 19:24] LABS: Urine Bilirubin NEGATIVE (NEG)
--- NOTE | 2018-04-25 19:26 | RAD REPORT ---
EXAM DESCRIPTION: RAD - Chest Single View - 04/25/2018 7:19 pm CLINICAL HISTORY: cough Chest pain. COMPARISON: Abdomen 1 View (KUB) dated 12/07/2017; Chest Pa And Lat (2 Views) dated 12/06/2017; Abdomen 1 View (KUB) dated 12/01/2017; Abdomen 1 View (KUB) dated 11/20/2017 FINDINGS: Portable technique limits examination quality. Emphysematous changes are present throughout the lungs. The heart is normal in size. No displaced fra ctures. IMPRESSION: COPD.
[2018-04-25 19:52] LABS: Urine Culture Reflex Order NOT NEEDED
[2018-04-25 19:53] LABS: Urine Bacteria >50 /HPF (<20)
--- NOTE | 2018-04-25 20:04 | RAD REPORT ---
EXAM DESCRIPTION: CT - Stone Protocol - 04/25/2018 7:30 pm CLINICAL HISTORY: Flank pain. kidney stone, stent, pyelo COMPARISON: Stone Protocol dated 11/19/2017; Stone Protocol dated 06/23/2017; Abdomen 1 View (KUB) da maria l 12/01/2017 TECHNIQUE: Axial images were obtained without oral or IV contrast. Lack of contrast limits solid org an and vascular assessment. The [id number] spans the entirety of the system partially obscuring uppermost abdomen and lung bases. Coronal reformatted images were obtained and reviewed. All CT scans are performed using dose optimization technique as appropriate and may include automated exposure control or mA/KV adjustment according to patient size. FINDINGS: Linear scarring versus subsegmental atelectasis in both lung bases. Imaged portions of the liver and spleen show no suspicious findings on non-contrast imaging. The panc reas and adrenal glands are normal. No pathologic lymphadenopathy in the abdomen or pelvis. Moderate right hydronephrosis is noted with a right double-J stent in place. Calcification is seen al jim the stent proximally within the pigtail as well as along the proximal stent tubing. In addition s mall calcification is present in the inferior calyx of the right kidney. Large calcifications are als o present within the distal aspect of the stent pigtail within the urinary bladder. A few punctate st ones are present in the left kidney, superior calyx. No bowel obstruction, free air, free fluid or abscess. Normal appendix noted. No significant bony abnormality. IMPRESSION: A right double-J stent is in place. Bulky calcifications are noted along the proximal as pect of the stent at the level of the right renal pelvis as well as within both pigtails. The finding s are most compatible with stent related urinary calculi. Moderate right hydronephrosis is noted. Bilateral nephrolithiasis is also seen.
[2018-04-25] MEDS: CEFTRIAXONE/SWI 1gm 1 GM/10 ML SYR IVP SCH (22:35)
--- NOTE | 2018-04-26 03:50 | HP ---
Date of Admission: 04/25/2018 Code Status: Full. Chief Complaint: Direct admission for urosepsis, fever, and chills. Consultants: Dr. Morataya with Urology. Primary Care Physician: None. History Of Present Illness: The patient is a 48-year-old female with past medical history of kidney stones, polycythemia, who had come into the hospital back in November of 2017, was found to have nephrolithiasis. Stent placement was done along with lithotripsy by Dr. Morataya. The patient did not follow up and now comes in with sepsis secondary to infected kidneys and likely pyelonephritis or UTI. The patient has been having fevers and chills for the past several days along with some flank pain and dysuria. Denies any frankly bloody urine. No nausea or vomiting. No chest pain. The patient's symptoms are constant, moderate, and progressively worsening. The patient followed up with Dr. Morataya in his office and was sent directly to the hospital for further workup and evaluation. When the patient arrived to the hospital floor, she was admitted to the second floor. When seen, she was awake, alert, and oriented x3 , in some mild distress. Past Medical History: History of kidney stones, polycythemia, and kidney stents. Past Surgical History: Lithotripsy, stent placement for kidney stones. Allergies: NO KNOWN DRUG ALLERGIES. Medications: None. Social History: The patient is a daily smoker. No illicit drug use or alcohol use. Family History: Mother had hypertension and diabetes. Review of Systems: An 11-point system reviewed, negative except as per HPI. Physical Examination: Vital Signs: T 97.9, HR 85, RR 20, BP 134/81, O2 99% RA General: Awake, alert, and oriented x3. Some mild distress. Ill-appearing female. HEENT: Normocephalic, atraumatic. PERRLA. EOMI. Moist mucous membranes. Oropharynx is clear. Poor dentition. Conjunctiva is anicteric. Neck: Supple. No JVD. Trachea midline. CV: S1, S2. Regular rate and rhythm. Peripheral pulses present. Respiratory: Moving air well bilaterally. No wheezing or stridor. No use of accessory muscles. Gastrointestinal: Abdomen is soft, nontender, and nondistended. Positive bowel sounds. No rebound or guarding. The patient does have bilateral flank tenderness. Extremities: No clubbing, cyanosis, or edema. No calf tenderness. Neuro: Cranial nerves 2-12 intact grossly. No focal neurological deficit. Speech is normal. Strength is 5/5 in bilateral upper and lower extremities. Sensation intact to light touch. Skin: No rashes. Normal skin turgor. Psych: Mood is anxious. Affect is congruent with mood, insight, and judgment are fair. Laboratory Data: Pending. Assessment: A 48-year-old female with; 1. Sepsis secondary to infected pyelonephritis possibly worsened with longstanding stents. We will start her on broad spectrum IV antibiotics. Obtain cultures. IV fluid resuscitation. We will check lactate and procalcitonin level. 2. Pyelonephritis. We will start her on antibiotics and follow up on cultures. Dr. Morataya is to take the patient to OR for stent removal. 3. Nicotine dependence with cigarette smoking, counseled. 4. History of polycythemia. Plan: Admit the patient to Med-Surg, place as inpatient. /LUDIN Voice ID: [id number] MTDD
[2018-04-26 05:56] LABS: BUN Blood Urea Nitrogen 7 mg/dL (7-18); Bicarbonate 23 mmol/L (21-32); Glucose Level 101 mg/dL (74-106); Potassium 3.8 mmol/L (3.5-5.1); Sodium Level 141 mmol/L (136-145)
[2018-04-26] MEDS ORDERED: KCL 20 MEQ/100 mL IVPB 20 MEQ/100 ML BAG IV SCH (07:00)
[2018-04-26] MEDS: NA CHLORIDE 0.9% 1,000 ML IV SCH ×3 (09:00→21:02)
[2018-04-26] MEDS ORDERED: CEFTRIAXONE/SWI 1gm 1 GM/10 ML SYR IVP SCH (09:00)
[2018-04-26] MEDS: CEFTRIAXONE/SWI 1gm 1 GM/10 ML SYR IVP SCH (09:48)
[2018-04-26] MEDS ORDERED: MORPHINE 2 MG/ML SYR IV PRN (10:08)
--- NOTE | 2018-04-26 11:27 | RAD REPORT ---
EXAM DESCRIPTION: RAD - Abdomen 1 View (KUB) - 04/26/2018 11:13 am CLINICAL HISTORY: Right ureteral stent, diminishing function COMPARISON: December 07, 2017 FINDINGS: Calcification has formed around the proximal pigtail. Calcification continues to surround the proximal 2.5 cm of the stent. Within the bladder there is a 2.5 centimeter area of calcification encircling the distal pigtail. No other calcifications or stones along the course of the stent. IMPRESSION: Large calcifications have formed partially encircling the proximal pigtail and encirclin g the proximal 2.5 cm of the stent. A 2.5 centimeter sized area of mineralization encircles the distal pigtail.
[2018-04-26] MEDS: HYDROCODONE/APAP 7.5/325 MG TAB PO PRN (12:19)
--- NOTE | 2018-04-26 16:04 | CON ---
History Of Present Illness: A 48-year-old noncompliant lady, whom I saw back on November 19, when she had a stent placed for a 9 mm right UPJ stent and I brought her back on December 07 for right shockwave lithotripsy. She never followed up to have her stent removed. Now she presents with urosepsis and c alcified stent. She was admitted for IV antibiotics for now, then she will need her stone cleared fr om the stent using the laser and hopefully we can manipulate that stent all over, if it is not stuck in the kidney. Past Medical History: Kidney stones, polycythemia, stent. Past Surgical History: Stent placement, lithotripsy. Allergies: NO KNOWN DRUG ALLERGIES. Medications: None. Social History: Patient daily smoker. No illicit drug use or alcohol use. Family History: Mother had hypertension, diabetes. Review of Systems: A 10-point review of system, otherwise negative as mentioned above. Physical Examination: Vital Signs: 97.6, pulse 64, respirations 20, blood pressure 117/65, 99% saturation on room air. HEENT: Atraumatic, normocephalic. Chest: Clear. Heart: Rate and rhythm regular. Abdomen: Soft, nontender. Normal motion. Laboratory Data: White count 10.8, H and H 15 and 44, platelet 158. Coags are normal. PT 13.9, INR 1.1. Chemistry normal with sodium 141, potassium 3.8, chloride 111, carbon dioxide 23, BUN 7, creat inine 0.4, GFR greater than 90, glucose 101, calcium 9.7. Assessment: Calcified stent, urinary tract infection. Plan: For urine culture. IV antibiotics, clear infection, and do laser cysto, stone removal. PB/MODL Voice ID: [id number] Report ID: [id number]
--- NOTE | 2018-04-26 16:33 | P.PN ---
Subjective Date of Service: 04/26/18 Primary Care Provider: Urology-Dr. Morataya Chief Complaint: Direct admission for urosepsis Subjective: Other (Patient still with pain.) Physical Examination - Vital Signs Temperature: 97.9 F Blood Pressure: 115/72 Pulse: 62 Respirations: 20 Pulse Ox (%): 98 - Physical Exam General: Alert, In no apparent distress, Oriented x3, Cooperative HEENT: Atraumatic Neck: Supple Respiratory: Clear to auscultation bilaterally, Normal air movement Cardiovascular: Normal pulses, Regular rate/rhythm Gastrointestinal: Normal bowel sounds, Other (Pain to the right flank) Neurological: Normal speech, Normal strength at 5/5 x4 extr, Normal tone - Studies Laboratory Data (last 24 hrs) 04/26/18 05:08: Sodium 141, Potassium 3.8, BUN 7, Creatinine 0.40 L, Glucose 101 04/26/18 00:32: Potassium 4.0 04/25/18 16:34: Sodium 136, Potassium 3.0 L, BUN 14, Creatinine 0.70, Glucose 100, Total Bilirubin 0.6, AST 29, ALT 41, Alkaline Phosphatase 78 04/25/18 16:34: PT 13.9 H, INR 1.18 04/25/18 16:34: WBC 10.8, Hgb 15.1 H, Hct 44.0, Plt Count 158 Medications List Reviewed: Yes Assessment & Plan Discharge Plan: Home Plan to discharge in: Greater than 2 days Physician Review Additional Text: Impression: Sepsis secondary to calcified urological stent with suspected pyelonephritis Tobacco abuse Plan: Will continue with IV antibiotic therapy and IV fluids. Await recommendations by urology. Patient will likely require urological intervention. Await urine culture results. Time Spent Managing Pts Care (In Minutes): 55
[2018-04-27 06:34] LABS: Absolute Lymphocytes (CBC) 2.2 K/uL (0.7-4.9); Absolute Monocytes 0.6 K/uL (0.1-1.3); Basophils % 1.4 % (0-1.3); Eosinophils % 5.6 % (0-4.4); Hematocrit 42.1 % (36.0-45.0); Lymphocytes % 30.3 % (15.3-44.8); MCH 33.6 pg (27.0-35.0); MCV 97.4 fL (80-100); MPV 9.9 fL (7.6-11.3); Monocytes % 8.7 % (3.3-12.3); RBC Red Blood Cell Count 4.32 M/uL (3.86-4.86)
[2018-04-27 06:56] LABS: BUN Blood Urea Nitrogen 8 mg/dL (7-18); Bicarbonate 25 mmol/L (21-32); Glucose Level 90 mg/dL (74-106); Potassium 3.9 mmol/L (3.5-5.1); Sodium Level 141 mmol/L (136-145)
[2018-04-27] MEDS ORDERED: POTASSIUM CL SA 10 MEQ TAB PO ONE (07:18)
[2018-04-27] MEDS: NA CHLORIDE 0.9% 1,000 ML IV SCH ×2 (07:35→09:00)
[2018-04-27] MEDS: HYDROCODONE/APAP 7.5/325 MG TAB PO PRN ×2 (09:22→21:24)
[2018-04-27] MEDS: CEFTRIAXONE/SWI 1gm 1 GM/10 ML SYR IVP SCH (09:22)
[2018-04-27] MEDS ORDERED: TRAMADOL HCL 50 MG TAB PO PRN (12:10)
--- NOTE | 2018-04-27 12:18 | P.PN ---
Subjective Date of Service: 04/27/18 Primary Care Provider: Urology-Dr. Morataya Chief Complaint: Direct admission for urosepsis Subjective: Improving Physical Examination - Vital Signs Temperature: 97.6 F Blood Pressure: 120/74 Pulse: 50 Respirations: 18 Pulse Ox (%): 95 - Physical Exam General: Alert, In no apparent distress, Oriented x3, Cooperative HEENT: Atraumatic Neck: Supple Respiratory: Clear to auscultation bilaterally, Normal air movement Cardiovascular: Normal pulses, Regular rate/rhythm Gastrointestinal: Normal bowel sounds, Soft and benign, Non-distended, No rebound, No guarding, Tenderness (less pain to the right flank) Musculoskeletal: No erythema, No tenderness, No warmth Integumentary: No tenderness/swelling, No erythema, No warmth, No cyanosis Neurological: Normal speech, Normal strength at 5/5 x4 extr, Normal tone, Normal affect - Studies Laboratory Data (last 24 hrs) 04/27/18 05:26: Sodium 141, Potassium 3.9, BUN 8, Creatinine 0.50 L, Glucose 90 , Magnesium 2.0 04/27/18 05:24: WBC 7.4 D, Hgb 14.5, Hct 42.1, Plt Count 164 Medications List Reviewed: Yes Assessment & Plan Discharge Plan: Home Plan to discharge in: Greater than 2 days Physician Review Additional Text: Impression: Sepsis secondary to calcified right double J stent with bulky calcifications along the proximal aspect of stent at level of right pelvis as well as pigtails. Suspect stent related urinary calculi. Righ hydronephrosis Bilateral nephrolithiasis Tobacco abuse Plan: Sepsis secondary to calcified right double J stent with bulky calcifications along the proximal aspect of stent at level of right pelvis as well as pigtails. Suspect stent related urinary calculi: Continue with IV antibiotics. Await urine and blood cultures. Will discuss further with Urology. Urology is planning urological procedure to remove calculi and stent, likely in the next 48 -72 hours. Right hydronephrosis: Continue as above. Will adjust IV fluids. Pain is controlled. Bilateral nephrolithiasis: Continue with pain medication. Tobacco abuse: Will continue to address tobacco cessation. Time Spent Managing Pts Care (In Minutes): 55
[2018-04-27] MEDS: NACHLORIDE 0.45% 1,000 ML IV SCH ×2 (13:50→21:25)
[2018-04-27 15:10] VITALS: O2SAT 98
[2018-04-27] MEDS ORDERED: ENOXAPARIN 40 MG/0.4 ML SQ SCH (17:00)
--- NOTE | 2018-04-27 19:57 | PN ---
Subjective: She is feeling much better since she has been in the hospital on IV antibiotics. Objective: Vital signs: 97.6, pulse 50, respiratory rate 18, BP 120/74, 95% saturation. Laboratory Data: All her cultures are still pending. I personally called lab today due to the computer outage. Assessment: Urosepsis due to calcified stent proximally and distally. Plan: To continue Rocephin until the cultures are back. I am planning to have her see Dr. Dang in [place] to get the stent decalcified and removed. We discussed that we could attempt to do it here, but the stent may fracture or break om attempted removal and she will still need to go see Dr. Dang. So, we will ask Dr. Dang to do it from the beginning. TOMÁS/LUDIN Voice ID: [id number] Report ID: [id number] MTDD
[2018-04-27] MEDS: FAMOTIDINE 20 MG TAB PO SCH (21:25)
[2018-04-28] MEDS: HYDROCODONE/APAP 7.5/325 MG TAB PO PRN (03:59)
[2018-04-28] MEDS: NACHLORIDE 0.45% 1,000 ML IV SCH ×2 (04:00→09:00)
[2018-04-28 05:27] LABS: Absolute Lymphocytes (CBC) 2.6 K/uL (0.7-4.9); Absolute Monocytes 0.5 K/uL (0.1-1.3); Absolute Neutrophil 2.1 K/uL (1.8-8.0); Basophils % 2.5 % (0-1.3); Eosinophils % 7.7 % (0-4.4); Hematocrit 41.6 % (36.0-45.0); Lymphocytes % 45.2 % (15.3-44.8); MCH 33.7 pg (27.0-35.0); MCV 96.6 fL (80-100); MPV 9.7 fL (7.6-11.3); Monocytes % 8.9 % (3.3-12.3); RBC Red Blood Cell Count 4.31 M/uL (3.86-4.86)
[2018-04-28 05:42] LABS: BUN Blood Urea Nitrogen 6 mg/dL (7-18); Bicarbonate 28 mmol/L (21-32); Glucose Level 90 mg/dL (74-106); Magnesium 2.1 mg/dL (1.8-2.4); Potassium 4.6 mmol/L (3.5-5.1); Sodium Level 140 mmol/L (136-145)
[2018-04-28] MEDS: CEFTRIAXONE/SWI 1gm 1 GM/10 ML SYR IVP SCH (10:16)
[2018-04-28] MEDS: FAMOTIDINE 20 MG TAB PO SCH (10:16)
--- NOTE | 2018-04-28 11:02 | P.DS ---
Admission Date: 04/25/18 Discharge Date: 04/28/18 Primary Care Provider: UrologyMonika Morataya Disposition: ROUTINE DISCHARGE Discharge Condition: GOOD Reason for Admission: Direct admission for urosepsis Consultations: Urology-Dr. Morataya Procedures: CT scan: COMPARISON: Stone Protocol dated 11/19/2017; Stone Protocol dated 06/23/2017; Abdomen 1 View (KUB) dated 12/01/2017 TECHNIQUE: Axial images were obtained without oral or IV contrast. Lack of contrast limits solid organ and vascular assessment. The [id number] spans the entirety of the system partially obscuring uppermost abdomen and lung bases. Coronal reformatted images were obtained and reviewed. All CT scans are performed using dose optimization technique as appropriate and may include automated exposure control or mA/KV adjustment according to patient size. FINDINGS: Linear scarring versus subsegmental atelectasis in both lung bases. Imaged portions of the liver and spleen show no suspicious findings on non- contrast imaging. The pancreas and adrenal glands are normal. No pathologic lymphadenopathy in the abdomen or pelvis. Moderate right hydronephrosis is noted with a right double-J stent in place. Calcification is seen along the stent proximally within the pigtail as well as along the proximal stent tubing. In addition small calcification is present in the inferior calyx of the right kidney. Large calcifications are also present within the distal aspect of the stent pigtail within the urinary bladder. A few punctate stones are present in the left kidney, superior calyx. No bowel obstruction, free air, free fluid or abscess. Normal appendix noted. No significant bony abnormality. IMPRESSION: A right double-J stent is in place. Bulky calcifications are noted along the proximal aspect of the stent at the level of the right renal pelvis as well as within both pigtails. The findings are most compatible with stent related urinary calculi. Moderate right hydronephrosis is noted. Bilateral nephrolithiasis is also seen. KUB: COMPARISON: December 07, 2017 FINDINGS: Calcification has formed around the proximal pigtail. Calcification continues to surround the proximal 2.5 cm of the stent. Within the bladder there is a 2.5 centimeter area of calcification encircling the distal pigtail. No other calcifications or stones along the course of the stent. IMPRESSION: Large calcifications have formed partially encircling the proximal pigtail and encircling the proximal 2.5 cm of the stent. A 2.5 centimeter sized area of mineralization encircles the distal pigtail. Medical Problem List: Sepsis secondary pyelonephritis with calcified right double-J stent with bulky calcifications along the proximal 2.5 cm aspect of stent at level of right pelvis as well as 2.5 cm size mineralization encircling distal pigtails. Stent related urinary calculi noted. Right hydronephrosis Bilateral nephrolithiasis Tobacco abuse Brief History of Present Illness: 48-year-old female with history of nephrolithiasis. In November of 2017 patient found to have nephrolithiasis. Stent placement was done by urology. Patient was to follow up to have stent removed. She was not able to follow up. Patient followed up with urology recently. Patient found to have fever, chills. Urosepsis was suspected. The patient was direct admitted for further evaluation. Hospital Course: Patient direct admitted for Sepsis secondary to right pyelonephritis with calcified right double-J stent with bulky calcifications along the proximal 2.5 cm aspect of stent at level of right pelvis as well as 2.5 cm size mineralization encircling distal pigtails. Stent related urinary calculi, Right hydronephrosis and bilateral nephrolithiasis also identified. In November of 2017 patient was found to have nephrolithiasis. Patient had stent placed. She was to follow up with urology to have this removed. Unfortunately the patient was not able to follow up. Patient was admitted for treatment. Urology was consulted. Patient will need to have calcifications removed along with stent. This was discussed in detail with the patient. Risks and benefits were addressed. Due to possible complications and complexity of procedure, urology recommended that the patient be evaluated by urology in [place] for removal. Patient agreed to have this done in [place]. This can be done as an outpatient. Current urine and blood cultures in the hospital have been negative. At discharge patient will continue with Bactrim DS 1 pill twice daily for 7 days then once daily for 30 days. Patient will need to follow up with urology at [facility] for evaluation for removal of stent and calcifications. Patient to increase fluid intake. Recommendation to recheck lab-CBC, BMP in 1 week to monitor progress. Tobacco cessation education will be provided. Vital Signs/Physical Exam: Temp Pulse Resp BP Pulse Ox 97.7 F 62 17 113/71 99 04/28/18 08:00 04/28/18 08:00 04/28/18 08:00 04/28/18 08:00 04/28/18 08:00 General: Alert, In no apparent distress, Oriented x3, Cooperative HEENT: Atraumatic Neck: Supple Respiratory: Clear to auscultation bilaterally, Normal air movement Cardiovascular: Normal pulses, Regular rate/rhythm Gastrointestinal: Normal bowel sounds, Soft and benign, Non-distended, No tenderness, No masses, No rebound, No guarding Musculoskeletal: No erythema, No tenderness, No warmth Integumentary: No tenderness/swelling, No erythema, No warmth, No cyanosis Neurological: Normal speech, Normal strength at 5/5 x4 extr, Normal tone, Normal affect Lymphatics: No axilla or inguinal lymphadenopathy Laboratory Data at Discharge: WBC 5.8 K/uL (4.3-10.9) D 04/28/18 05:00 Hgb 14.5 g/dL (12.0-15.0) 04/28/18 05:00 Hct 41.6 % (36.0-45.0) 04/28/18 05:00 Plt Count 187 K/uL (152-406) 04/28/18 05:00 PT 13.9 SECONDS (9.5-12.5) H 04/25/18 16:34 INR 1.18 04/25/18 16:34 Sodium 140 mmol/L (136-145) 04/28/18 05:00 Potassium 4.6 mmol/L (3.5-5.1) 04/28/18 05:00 BUN 6 mg/dL (7-18) L 04/28/18 05:00 Creatinine 0.50 mg/dL (0.55-1.3) L 04/28/18 05:00 Glucose 90 mg/dL (74-106) 04/28/18 05:00 Magnesium 2.1 mg/dL (1.8-2.4) 04/28/18 05:00 Total Bilirubin 0.6 mg/dL (0.2-1.0) 04/25/18 16:34 AST 29 U/L (15-37) 04/25/18 16:34 ALT 41 U/L (12-78) 04/25/18 16:34 Alkaline Phosphatase 78 U/L (45-117) 04/25/18 16:34 Home Medications: Sulfamethoxazole/Trimethoprim [Bactrim 400-80 mg Tablet] 1 each PO SEECOM #43 tablet 04/28/18 New Medications: Sulfamethoxazole/Trimethoprim [Bactrim 400-80 mg Tablet] 1 each PO SEECOM #43 tablet Patient Discharge Instructions: 1. Patient will need a follow up with her PCP in 1 week to follow up this hospitalization. 2. Patient direct admitted for Sepsis secondary to right pyelonephritis with calcified right double-J stent with bulky calcifications along the proximal 2.5 cm aspect of stent at level of right pelvis as well as 2.5 cm size mineralization encircling distal pigtails. Stent related urinary calculi, Right hydronephrosis and bilateral nephrolithiasis also identified. In November of 2017 patient was found to have nephrolithiasis. Patient had stent placed. She was to follow up with urology to have this removed. Unfortunately the patient was not able to follow up. Patient was admitted for treatment. Urology was consulted. Patient will need to have calcifications removed along with stent. This was discussed in detail with the patient. Risks and benefits were addressed. Due to possible complications and complexity of procedure, urology recommended that the patient be evaluated by urology in [place] for removal. Patient agreed to have this done in [place]. This can be done as an outpatient. At discharge patient will continue with Bactrim DS 1 pill twice daily for 7 days then it once daily for 30 days. Patient will need to follow up with urology at [facility] for evaluation for removal of stent and calcifications. Patient to increase fluid intake. Recommendation to recheck lab-CBC, BMP in 1 week to monitor progress. 3. Tobacco cessation education will be provided. Diet: AHA Activity: Ad brad Time spent managing pt's care (in minutes): 55
[2018-04-28 12:31] VITALS: BP 133/89; TEMP 98.4
--- NOTE | 2018-04-28 17:00 | PN ---
Subjective: The patient is doing well. Objective: Urine culture negative. Assessment: Calcified proximal and distal double-J stent. Plan: The patient to go home on Bactrim. Follow up with Dr. Dang early May. She has an appoint ment made by Zuleyka at my office. She is to continue once a day prophylactic antibiotics until then. Drinks lots of water. She has also been taking magnesium citrate to prevent growth of stones, hopef ully, drinking lots of water. She will follow up with Dr. Dang. TOMÁS/LUDIN Voice ID: [id number] Report ID: [id number]
== END 2018-04-28 14:44 | disposition home or self-care (01) | DRG 872 ==
LOC: 2ND 15:54
PROVIDERS: ADMIT Family Medicine; ATTEND Family Medicine
DX: A41.9 Sepsis, unspecified organism (principal); N13.6 Pyonephrosis; T83.592A Infection and inflammatory reaction due to indwelling ureteral stent, initial encounter; F17.210 Nicotine dependence, cigarettes, uncomplicated; Z91.19 Patient's noncompliance with other medical treatment and regimen
CPT/HCPCS: 36415; 71045; 74018; 74176; 76377; 80048; 80053; 81003; 81015; 83605; 83735; 84132; 84145; 85025; 85610; 87040; 87086; 87088; 93005; 94760; J0696; J1650; J7030

== ENCOUNTER 2018-06-28 10:20 | Emergency (ER) | payer BC ==
--- OUTSIDE RECORDS SUMMARY | 2018-06-28 10:23 | XMS REPORT | Clinical Summary ---
:[address] [facility] Address [address] [place] [address] Care Team Providers Name Role Phone Unavailable Primary Care Provider Unavailable Allergies No Known Allergies Medications Medication Sig Dispensed Refills Start Date End Date Status Missing or . 0 Active Non-Formulary Medication acetaminophen-codeine Take 1 tablet 30 tablet 0 06/22/2018 Active (TYLENOL #3) 300-30 by mouth 8 mg per tablet every 4 (four) hours as needed for Pain for up to 10 days. Max Daily Amount: 6 tablets metroNIDAZOLE Take 1 tablet 30 tablet 0 06/22/2018 Active (FLAGYL) 500 MG (500 mg 8 tablet total) by mouth 3 (three) times daily for 10 days. tamsulosin (FLOMAX) Take 1 30 capsule 0 06/22/2018 Active 0.4 mg Cap 24 hr capsule (0.4 capsule mg total) by mouth daily. sulfamethoxazole-trim Take 1 tablet 0 Discontinued ethoprim by mouth 8 (BACTRIM,SEPTRA) daily. 400-80 mg per tablet metroNIDAZOLE Take 1 tablet 30 tablet 0 06/22/2018 Discontinued (FLAGYL) 500 MG (500 mg 8 tablet total) by mouth 3 (three) times daily for 10 days. acetaminophen-codeine Take 1 tablet 30 tablet 0 06/22/2018 Discontinued (TYLENOL #3) 300-30 by mouth 8 mg per tablet every 4 (four) hours as needed for Pain for up to 10 days. Max Daily Amount: 6 tablets phenazopyridine Take 1 tablet 10 tablet 0 06/22/2018 Discontinued (PYRIDIUM) 100 MG (100 mg 8 tablet total) by mouth 3 (three) times daily as needed for Pain for up to 3 days. tamsulosin (FLOMAX) Take 1 30 capsule 0 06/22/2018 Discontinued 0.4 mg Cap 24 hr capsule (0.4 8 capsule mg total) by mouth daily. phenazopyridine Take 1 tablet 10 tablet 0 06/22/2018 (PYRIDIUM) 100 MG (100 mg 8 tablet total) by mouth 3 (three) times daily as needed for Pain for up to 3 days. Active Problems Problem Noted Date Hypotension 06/18/2018 Nephrolithiasis 06/16/2018 Encounters Date Type Specialty Care Team Description 06/18/2018 Travel 06/17/2018 Orders Only General Internal Medicine 06/16/2018 Anesthesia Event Darrius Cervantes MD 06/16/2018 Surgery [facility] CYSTOSCOPY,LITHOLAPAXY MD Chele W/ LASER LITHOTRIPSY 06/16/2018 - Hospital Encounter General Internal [facility] Nephrolithiasis (Primary Dx); 06/22/2018 Medicine MD Chele Sepsis, due to unspecified organism (HCC); Acute pain; Hypovolemia; Bacteremia due to Gram-positive bacteria; Postprocedural hypotension 06/15/2018 Hospital Encounter Pre-Admission Testing after 06/27/2017 Social History Tobacco Use Types Packs/Day Years Used Date Current Some Day Smoker 0.5 10 Smokeless Tobacco: Never Used Tobacco Cessation: Ready to Quit: Yes; Counseling Given: Yes Alcohol Use Drinks/Week oz/Week Comments No Alcohol Habits Answer Date Recorded How often do you have a drink containing alcohol? Never 06/15/2018 How many drinks containing alcohol do you have on a typical Not asked day when you are drinking? How often do you have six or more drinks on one occasion? Not asked Sex Assigned at Date Recorded Not on file Job Start Date Occupation Industry Not on file Not on file Not on file Travel History Travel Start Travel End No recent travel history available. Last Filed Vital Signs Vital Sign Reading Time Taken Blood Pressure 104/66 06/22/2018 4:00 PM SHIPPING HELPER Pulse 63 06/22/2018 4:00 PM SHIPPING HELPER Temperature 35.8 C (96.4 F) 06/22/2018 11:00 AM SHIPPING HELPER Respiratory Rate 17 06/22/2018 4:00 PM SHIPPING HELPER Oxygen Saturation 97% 06/22/2018 4:00 PM SHIPPING HELPER Inhaled Oxygen Concentration - - Weight 42.6 kg (94 lb) 06/16/2018 9:39 PM SHIPPING HELPER Height 157.5 cm (5' 2") 06/16/2018 9:39 PM SHIPPING HELPER Body Mass Index 17.19 06/16/2018 9:39 PM SHIPPING HELPER Plan of Treatment Not on file Implants Implanted Type Area Master Data Analyst Device Shelf Model / Identifier Expiration Serial / Date Lot Set Stent Injection 6x26cm [id number] - [id number] Uro Stent Right: [place] 02/06/2020 [id number] / Implanted: Qty: 1 on 06/16/2018 by Colton Dang MD [employer]: ONCOLOGY / [id number] Procedures Procedure Name Priority Date/Time Associated Comments Diagnosis RHYTHM STRIP - SCAN 06/24/2018 2:00 PM SHIPPING HELPER CBC W/PLT COUNT & AUTO Routine 06/22/2018 5:43 Results for this DIFFERENTIAL AM SHIPPING HELPER procedure are in the results section. BASIC METABOLIC PANEL Routine 06/22/2018 5:43 Results for this (7) AM SHIPPING HELPER procedure are in the results section. CBC W/PLT COUNT & AUTO Routine 06/22/2018 5:43 Results for this DIFFERENTIAL AM SHIPPING HELPER procedure are in the results section. (CELLAVISION MANUAL Routine 06/21/2018 6:54 Results for this DIFF) AM SHIPPING HELPER procedure are in the results section. CBC W/PLT COUNT & AUTO Routine 06/21/2018 6:54 Results for this DIFFERENTIAL AM SHIPPING HELPER procedure are in the results section. BASIC METABOLIC PANEL Routine 06/21/2018 6:54 Results for this (7) AM SHIPPING HELPER procedure are in the results section. CBC W/PLT COUNT & AUTO Routine 06/21/2018 6:54 Results for this DIFFERENTIAL AM SHIPPING HELPER procedure are in the results section. COMPREHENSIVE Routine 06/20/2018 9:10 Results for this METABOLIC PANEL PM SHIPPING HELPER procedure are in the results section. CBC (HEMOGRAM ONLY) Routine 06/19/2018 4:59 Results for this AM SHIPPING HELPER procedure are in the results section. BASIC METABOLIC PANEL Routine 06/19/2018 4:59 Results for this (7) AM SHIPPING HELPER procedure are in the results section. CBC (HEMOGRAM ONLY) Routine 06/18/2018 3:36 Results for this AM SHIPPING HELPER procedure are in the results section. BASIC METABOLIC PANEL Routine 06/18/2018 3:36 Results for this (7) AM SHIPPING HELPER procedure are in the results section. TRANSFUSION SERVICE 06/17/2018 5:50 REPORT - SCAN PM SHIPPING HELPER LACTIC ACID, ARTERIAL, STAT 06/17/2018 4:19 Results for this WHOLE BLOOD PM SHIPPING HELPER procedure are in the results section. ECG 12-LEAD Routine 06/17/2018 2:58 PM SHIPPING HELPER Procedure Note - Interface, External Ris In - 06/17/2018 3:01 PM SHIPPING HELPER Ventricular Rate 78 BPM Atrial Rate 78 BPM P-R Interval 112 ms QRS Duration 84 ms Q-T Interval 380 ms QTC Calculation(Bazett) 433 ms P Dundas 73 degrees R Dundas 71 degrees T [place]und[place] 67 degrees Normal sinus rhythm Normal ECG When compared with ECG of 17-JUN-2018 09:04, No significant change was found ECG 12-LEAD STAT 06/17/2018 2:58 PM Results for this SHIPPING HELPER procedure are in the results section. URINE CULTURE Routine 06/17/2018 1:29 PM Results for this SHIPPING HELPER procedure are in the results section. URINALYSIS W/ REFLEX Routine 06/17/2018 1:28 PM Results for this URINE CULTURE SHIPPING HELPER procedure are in the results section. CT ABDOMEN/PELVIS Routine 06/17/2018 10:04 AM Results for this WITHOUT IV CONTRAST SHIPPING HELPER procedure are in the results section. (CELLAVISION MANUAL Routine 06/17/2018 9:16 AM Results for this DIFF) SHIPPING HELPER procedure are in the results section. CBC W/PLT COUNT & AUTO Routine 06/17/2018 9:16 AM Results for this DIFFERENTIAL SHIPPING HELPER procedure are in the results section. CBC W/PLT COUNT & AUTO Routine 06/17/2018 9:16 AM Results for this DIFFERENTIAL [employer]IPPING HELPER procedure are in the results section. TROPONIN I Routine 06/17/2018 9:16 AM Results for this SHIPPING HELPER procedure are in the results section. CREATINE KINASE (CK), STAT 06/17/2018 9:15 AM Results for this TOTAL AND MB SHIPPING HELPER procedure are in the results section. BLOOD CULTURE Routine 06/17/2018 9:15 AM Results for this IDENTIFICATION PANEL SHIPPING HELPER procedure are in the results section. BLOOD CULTURE STAT 06/17/2018 9:15 AM SHIPPING HELPER POCT-LACTIC ACID, Routine 06/17/2018 9:14 AM Results for this VENOUS SHIPPING HELPER procedure are in the results section. ECG 12-LEAD STAT 06/17/2018 9:04 AM Results for this SHIPPING HELPER procedure are in the results section. CBC (HEMOGRAM ONLY) Routine 06/17/2018 4:27 AM Results for this SHIPPING HELPER procedure are in the results section. BASIC METABOLIC PANEL Routine 06/17/2018 4:27 AM Results for this (7) SHIPPING HELPER procedure are in the results section. CBC W/PLT COUNT & AUTO Routine 06/16/2018 9:00 PM Results for this DIFFERENTIAL SHIPPING HELPER procedure are in the results section. BASIC METABOLIC PANEL Routine 06/16/2018 9:00 PM Results for this (7) SHIPPING HELPER procedure are in the results section. CBC W/PLT COUNT & AUTO Routine 06/16/2018 9:00 PM Results for this DIFFERENTIAL [employer]IPPING HELPER procedure are in the results section. XR CHEST 1 VIEW STAT 06/16/2018 8:00 PM Results for this PORTABLE/BEDSIDE SHIPPING HELPER procedure are in the results section. BASIC METABOLIC PANEL STAT 06/16/2018 6:23 PM Results for this (7) SHIPPING HELPER procedure are in the results section. HEMOGLOBIN AND STAT 06/16/2018 6:23 PM Results for this HEMATOCRIT [employer]IPPING HELPER procedure are in the results section. XR CHEST PA OR AP 1 Routine 06/16/2018 5:50 PM Results for this VIEW IN DEPT. SHIPPING HELPER procedure are in the results section. FL DRY TRANSFER WORKER IN OR 30 Routine 06/16/2018 5:37 PM Results for this MINUTE INCREMENTS SHIPPING HELPER procedure are in the results section. STONE ANALYSIS Routine 06/16/2018 5:05 PM Results for this SHIPPING HELPER procedure are in the results section. PROCEDURE W/ C-ARM 06/16/2018 12:30 PM Nephrolithiasis, SHIPPING HELPER uric acid Retained ureteral stent Special Needs (PRONE POSITION, 12 FAROESE MINI NEPHROSCOPE, 4 FAROESE SHOCK PULSE PROBE, HOLMIUM LASER, C-ARM) NEPHROSTOLITHOTOMY,PERCUTANEOUS MINI 06/16/2018 12:30 Nephrolithiasis, uric (MINI PCNL) PM SHIPPING HELPER acid Retained ureteral stent Special Needs (PRONE POSITION, 12 FAROESE MINI NEPHROSCOPE, 4 FAROESE SHOCK PULSE PROBE, HOLMIUM LASER, C-ARM) CYSTOSCOPY,LITHOLAPAXY W/ LASER 06/16/2018 12:30 PM Nephrolithiasis, uric acid LITHOTRIPSY SHIPPING HELPER Retained ureteral stent Special Needs (PRONE POSITION, 12 FAROESE MINI NEPHROSCOPE, 4 FAROESE SHOCK PULSE PROBE, HOLMIUM LASER, C-ARM) POCT , URINE Routine 06/16/2018 11:07 AM SHIPPING HELPER TYPE AND SCREEN, AUTOMATED Routine 06/16/2018 11:05 AM SHIPPING HELPER after 06/27/2017 Results RHYTHM STRIP - SCAN (06/24/2018 2:00 PM SHIPPING HELPER) Narrative Performed At CBC with platelet count + automated diff (06/22/2018 5:43 AM SHIPPING HELPER)Only the most recent of4 resultswithin the time period is included. WBC 7.7 3.5 - 10.5 K/L [facility] RBC 4.82 3.93 - 5.22 M/L [facility] Hemoglobin 15.8 (H) 11.2 - 15.7 GM/DL [facility] Hematocrit 47.6 (H) 34.1 - 44.9 % [facility] MCV 98.8 (H) 79.4 - 94.8 fL [facility] MCH 32.8 (H) 25.6 - 32.2 pg [facility] MCHC 33.2 32.2 - 35.5 GM/DL [facility] RDW 14.7 (H) 11.7 - 14.4 % [facility] Platelets 144 (L) 150 - 450 K/CU MM [facility] MPV 12.5 (H) 9.4 - 12.3 fL [facility] nRBC 0 0 - 0 /100 WBC [facility] % Neutros 51 % [facility] % Lymphs 28 % [facility] % Monos 16 % [facility] % Eos 3 % [facility] % Baso 2 % [facility] # Neutros 3.93 1.56 - 6.13 K/L [facility] # Lymphs 2.14 1.18 - 3.74 K/L [facility] # Monos 1.22 (H) 0.24 - 0.36 K/L [facility] # Eos 0.22 0.04 - 0.36 K/L [facility] # Baso 0.13 (H) 0.01 - 0.08 K/L [facility] Immature Granulocytes-Relative 1 0 - 1 % [facility] Specimen Blood - Arm, Left Performing Organization Address City/[facility]/Zipcode Phone Number [address] [address] CENTER Basic Metabolic Panel (06/22/2018 5:43 AM SHIPPING HELPER)Only the most recent of7 resultswithin the time period is included. Sodium 135 (L) 136 - 145 meq/L [facility] Potassium 3.4 (L) 3.5 - 5.1 meq/L [facility] Chloride 104 98 - 107 meq/L [facility] CO2 26 22 - 29 meq/L [facility] BUN 6 (L) 7 - 21 mg/dL [facility] Creatinine 0.53 (L) 0.57 - 1.25 mg/dL [facility] Glucose 97 70 - 105 mg/dL [facility] Calcium 8.6 8.4 - 10.2 mg/dL [facility] EGFR 124Comment: ESTIMATED GFR IS mL/min/1.73 sq m [facility] NOT ACCURATE CREATININE [facility] CENTER CLEARANCE IN PREDICTING GLOMERULAR FILTRATION RATE. ESTIMATED GFR IS NOT APPLICABLE FOR DIALYSIS PATIENTS. Specimen Blood - Arm, Left Performing Organization Address City/State/Zipcode Phone Number [address] [address] [phone] CENTER Manual Differential (06/21/2018 6:54 AM SHIPPING HELPER)Only the most recent of2 resultswithin the time period is included. % Neutros 68 % [facility] % Lymphs 11 % [facility] % Monos 9 % [facility] % Eos 1 % [facility] % Baso 2 % [facility] % Bands 8 0 - 10 % [facility] % Atypical Lymphs 1 (H) 0 - 0 % [facility] # Neutros 8.57 (H) 1.56 - 6.13 K/ul [facility] # Lymphs 1.39 1.18 - 3.74 K/ul [facility] # Monos 1.13 (H) 0.24 - 0.36 K/uL [facility] # Eos 0.13 0.04 - 0.36 K/uL [facility] # Baso 0.25 (H) 0.01 - 0.08 K/uL [facility] # Bands 1.01 (H) 0.00 - 0.80 K/uL [facility] # Atypical Lymphs 0.13 (H) 0.00 - 0.00 K/uL [facility] Total Counted 100 [facility] WBC Morphology Normal [facility] Platelet Morphology Normal [facility] Anisocytosis 1+ few [facility] Macrocytes 1+ few [facility] Poikilocytes 1+ few [facility] Artifact Present [facility] Platelet Conc Decreased [facility] Specimen Blood Narrative Performed At Received comment: [facility] User comments: Slide comments: Performing Organization Address City/State/Zipcode Phone Number [facility] [address] [place] [address] [phone] CENTER Comprehensive metabolic panel (06/20/2018 9:10 PM SHIPPING HELPER) Protein, Total 5.9 (L) 6.0 - 8.3 gm/dL [facility] Albumin 2.9 (L) 3.5 - 5.0 g/dL [facility] Alkaline Phosphatase 113 40 - 150 U/L [facility] Total Bilirubin 0.5 0.2 - 1.2 mg/dL [facility] Sodium 135 (L) 136 - 145 meq/L [facility] Potassium 3.5 3.5 - 5.1 meq/L [facility] Chloride 102 98 - 107 meq/L [facility] CO2 26 22 - 29 meq/L [facility] BUN 5 (L) 7 - 21 mg/dL [facility] Creatinine 0.58 0.57 - 1.25 mg/dL [facility] Glucose 113 (H) 70 - 105 mg/dL [facility] Calcium 8.9 8.4 - 10.2 mg/dL [facility] AST 23 5 - 34 U/L [facility] ALT 26 6 - 55 U/L [facility] EGFR 111Comment: ESTIMATED mL/min/1.73 sq m [facility] GFR IS NOT ACCURATE [facility] CREATININE CLEARANCE IN PREDICTING GLOMERULAR FILTRATION RATE. ESTIMATED GFR IS NOT APPLICABLE FOR DIALYSIS PATIENTS. Specimen Blood - Arm, Right Performing Organization Address City/State/Zipcode Phone Number [facility] [address] [place] [address] CENTER CBC (Hemogram only) (06/19/2018 4:59 AM SHIPPING HELPER)Only the most recent of3 resultswithin the time period is included. WBC 11.4 (H) 3.5 - 10.5 K/L [facility] RBC 4.26 3.93 - 5.22 M/L [facility] Hemoglobin 14.2 11.2 - 15.7 GM/DL [facility] Hematocrit 43.7 34.1 - 44.9 % [facility] MCV 102.6 (H) 79.4 - 94.8 fL [facility] MCH 33.3 (H) 25.6 - 32.2 pg [facility] MCHC 32.5 32.2 - 35.5 GM/DL [facility] RDW 15.2 (H) 11.7 - 14.4 % [facility] Platelets 88 (L) 150 - 450 K/CU MM [facility] MPV 12.1 9.4 - 12.3 fL [facility] nRBC 0 0 - 0 /100 WBC [facility] Specimen Blood - Arm, Right Performing Organization Address [facility] Phone Number [facility] [address] [place] [address] [place] TRANSFUSION SERVICE REPORT - SCAN (06/17/2018 5:50 PM SHIPPING HELPER) Narrative Performed At Lactic acid, arterial, whole blood (06/17/2018 4:19 PM SHIPPING HELPER) Lactate, Art 1.5Comment: Specimen 0.5 - 2.2 mmol/L [facility] slightly hemolyzed [facility] Specimen Blood, Arterial - Line, Arterial Performing Organization Address [facility] Hospital[facility] Phone Number [facility] [address] [place] [address] [place] ECG 12 lead (06/17/2018 2:58 PM SHIPPING HELPER)Only the most recent of2 resultswithin the time period is included. Narrative Performed At Ventricular Rate 78 BPM [facility] Atrial Rate 78 BPM P-R Interval 112 ms QRS Duration 84 ms Q-T Interval 380 ms QTC Calculation(Bazett) 433 ms P Dundas 73 degrees R Dundas 71 degrees T Dundas 67 degrees Normal sinus rhythm Normal ECG When compared with ECG of 17-JUN-2018 09:04, No significant change was found Confirmed by MD ALCALA JOSEPH P ([id number]) on 06/17/2018 5:01:47 PM Procedure Note Interface, External Ris In - 06/17/2018 5:01 PM SHIPPING HELPER Ventricular Rate 78 BPM Atrial Rate 78 BPM P-R Interval 112 ms QRS Duration 84 ms Q-T Interval 380 ms QTC Calculation(Bazett) 433 ms P Dundas 73 degrees R [place]und[place] 71 degrees T [place]und[place] 67 degrees Normal sinus rhythm Normal ECG When compared with ECG of 17-JUN-2018 09:04, No significant change was found Confirmed by MD ALCALA JOSEPH P ([id number]) on 06/17/2018 5:01:47 PM Performing Organization Address City/State/Zipcode Phone Number [facility] Urine culture (06/17/2018 1:29 PM SHIPPING HELPER) Result No growth [facility] Specimen Urine - Urine, Clean Catch Performing Organization Address [facility]/Zipcode Phone Number [address] [address] CENTER Urinalysis w/Microscopic + Reflex to Culture (06/17/2018 1:28 PM SHIPPING HELPER) Color, UA Yellow [facility] Clarity, UA Clear [facility] Specific [place], UA 1.006 1.001 - 1.035 [facility] pH, UA 6.0 5.0 - 8.0 [facility] Protein, UA 10 mg/dL (A) Negative [facility] Glucose, UA Negative Negative [facility] Ketones, UA Negative Negative [facility] Bilirubin, UA Negative Negative [facility] Blood, UA Large (A) Negative [facility] Nitrite, UA Negative Negative [facility] Leukocytes, UA Large (A) Negative [facility] Urobilinogen, UA 0.2 0.2 - 1.0 mg/dL [facility] RBC, UA 66 /HPF [facility] WBC, UA 57 /HPF [facility] Bacteria, UA Occasional [facility] Mucus Rare [facility] Squam Epithel, UA 2 /HPF [facility] Specimen Source [facility] Specimen Urine Performing Organization Address City/State/Zipcode Phone Number [facility] [address] [place] [address] abdomen/pelvis without iv contrast (06/17/2018 10:04 AM SHIPPING HELPER) Narrative Performed At FINAL REPORT [employer] CT scan of the abdomen and pelvis. CLINICAL HISTORY: Kidney stone, follow-up. COMPARISON STUDY: None available. TECHNIQUE: Contiguous helical slices were acquired through the abdomen and pelvis without the administration of oral or intravenous contrast. This exam was performed according to our department dose optimization program which includes automated exposure control, adjustment of the mA and/or kV according to the patient's size and/or use of iterative reconstruction technique. FINDINGS: Atelectatic changes are seen in the lung bases with trace effusions. The abdomen and pelvis are limited by lack of contrast. The liver, spleen, and adrenal glands are unremarkable. Sludge or stones are seen in the gallbladder with gallbladder wall edema identified. Diffuse anasarca is seen. Areas of mesenteric edema are noted including peripancreatic stranding. No definite focal pancreatic mass is seen. There are no dilated loops of bowel seen to suggest obstruction. No evidence of appendicitis is seen. A 2 mm nonocclusive calculus is seen in the upper pole of the left kidney. On the right side, multiple nonocclusive calculi are seen with approximately five identified measuring up to 6 cm in the lower pole. A stent is seen in the collecting system. No definite ureteric calculus is seen but the presence of the stent limits assessment. There is mild right-sided hydronephrosis as well as perinephric stranding including some high attenuation material adjacent to the kidney most suggestive of hemorrhage. A gas containing tract is seen extending from the kidney towards the skin surface, likely site of a recent nephrostomy catheter. No free fluid or free air is seen. Some calcified uterine fibroids are seen. Some gas is noted in the bladder. Bone windows demonstrate no focal abnormality. IMPRESSION: 1. Bilateral nonocclusive renal calculi, more so on the right side with mild right-sided hydronephrosis and a stent in the right collecting system. 2. Right-sided perinephric stranding including some high attenuation material, possibly hemorrhage. 3. Diffuse anasarca, small effusions with adjacent atelectasis or consolidation, gallbladder edema and stranding along the root of the mesentery. This is more than is typical for a renal calculus and an underlying second process causing third spacing is likely present. 4. Study limited by lack of contrast. 5. Other findings as described above. Signed: Ganesh Santizo MD Report Verified Date/Time:06/17/2018 10:24:20 Reading Location: [facility] [id number] Ortho Consult Reading Room Procedure Note Interface, External Ris In - 06/17/2018 10:26 AM SHIPPING HELPER FINAL REPORT CT scan of the abdomen and pelvis. CLINICAL HISTORY: Kidney stone, follow-up. COMPARISON STUDY: None available. TECHNIQUE: Contiguous helical slices were acquired through the abdomen and pelvis without the administration of oral or intravenous contrast. This exam was performed according to our department dose optimization program which includes automated exposure control, adjustment of the mA and/or kV according to the patient's size and/or use of iterative reconstruction technique. FINDINGS: Atelectatic changes are seen in the lung bases with trace effusions. The abdomen and pelvis are limited by lack of contrast. The liver, spleen, and adrenal glands are unremarkable. Sludge or stones are seen in the gallbladder with gallbladder wall edema identified. Diffuse anasarca is seen. Areas of mesenteric edema are noted including peripancreatic stranding. No definite focal pancreatic mass is seen. There are no dilated loops of bowel seen to suggest obstruction. No evidence of appendicitis is seen. A 2 mm nonocclusive calculus is seen in the upper pole of the left kidney. On the right side, multiple nonocclusive calculi are seen with approximately five identified measuring up to 6 cm in the lower pole. A stent is seen in the collecting system. No definite ureteric calculus is seen but the presence of the stent limits assessment. There is mild right-sided hydronephrosis as well as perinephric stranding including some high attenuation material adjacent to the kidney most suggestive of hemorrhage. A gas containing tract is seen extending from the kidney towards the skin surface, likely site of a recent nephrostomy catheter. No free fluid or free air is seen. Some calcified uterine fibroids are seen. Some gas is noted in the bladder. Bone windows demonstrate no focal abnormality. IMPRESSION: 1. Bilateral nonocclusive renal calculi, more so on the right side with mild right-sided hydronephrosis and a stent in the right collecting system. 2. Right-sided perinephric stranding including some high attenuation material, possibly hemorrhage. 3. Diffuse anasarca, small effusions with adjacent atelectasis or consolidation, gallbladder edema and stranding along the root of the mesentery. This is more than is typical for a renal calculus and an underlying second process causing third spacing is likely present. 4. Study limited by lack of contrast. 5. Other findings as described above. Signed: Ganesh Santizo MD Report Verified Date/Time: 06/17/2018 10:24:20 Reading Location: [address] Consult Reading Room Performing Organization Address [facility] Phone Number [facility] Troponin I (06/17/2018 9:16 AM SHIPPING HELPER) Troponin I 0.28 () 0.00 - 0.03 ng/mL [facility] Specimen Blood - Arm, Right Narrative Performed At Troponin I (TnI) levels must be interpreted [facility] in the context of the presenting symptoms and the clinical findings. Elevated TnI levels indicate myocardial damage, but are not specific for ischemic heart disease. Elevated TnI levels are seen in patients with other cardiac conditions (including myocarditis and congestive heart failure), and slight TnI elevations occur in patients with other conditions, including sepsis, renal failure, acidosis, acute neurological disease, and persistent tachyarrhythmia. Performing Organization Address City/State/Zipcode Phone Number [facility] [address] [place] [phone] [place] Blood Culture Panel(BioFire) (06/17/2018 9:15 AM SHIPPING HELPER) LISTERIA MONOCYTOGENES Not detected Not detected [facility] STAPHYLOCOCCUS Not detected Not detected [facility] STAPHYLOCOCCUS AUREUS Not detected Not detected [facility] Streptococcus Not detected Not detected [facility] STREPTOCOCCUS AGALACTIAE (GROUP B) Not detected Not detected [facility] STREPTOCOCCUS PNEUMONIAE Not detected Not detected [facility] Streptococcus pyogenes (Group A) Not detected Not detected [facility] ACINETOBACTER BAUMANNII Not detected Not detected [facility] HAEMOPHILUS INFLUENZAE Not detected Not detected [facility] NEISSERIA MENINGITIDIS Not detected Not detected [facility] ENTEROBACTERIACEAE Not detected Not detected [facility] ENTEROBACTER CLOACOE COMPLEX Not detected Not detected [facility] KLEBSIELLA OXYTOCA Not detected Not detected [facility] KLEBSIELLA PNEUMONIAE Not detected Not detected [facility] PROTEUS Not detected Not detected [facility] SERRATIA MARCESCENS Not detected Not detected [facility] AMRIT ALBICANS Not detected Not detected [facility] AMRIT GLABRATA Not detected Not detected [facility] AMRIT BRANT Not detected Not detected [facility] AMRIT PARAPSILOSIS Not detected Not detected [facility] AMRIT TROPICALIS Not detected Not detected [facility] ESCHERICHIA COLI Not detected Not detected [facility] METHICILLIN-RESISTANCE GENE Not detected [facility] VANCOMYCIN-RESISTANCE GENE Not detected [facility] CARBAPENEM-RESISTANCE GENE Not detected [facility] ENTEROCOCCUS Not detected Not detected [facility] PSEUDOMONAS AERUGINOSA Not detected Not detected [facility] Specimen Blood - Arm, Right Narrative Performed At Other bacteria and resistance markers not [facility] targeted by this PCR panel cannot be excluded; therefore clinical correlation and follow up of serology, culture results, and other molecular studies is required. The results are not intended to be used as the sole means for clinical diagnosis or patient management decisions. This sample was tested at the [facility] using the [employer] Blood Culture ID Panel. It is FDA cleared and has been verified and approved by the [facility] for clinical use. This laboratory is CLIA-certified and [employer] [place] [employer] (CAP)-accredited to perform high complexity testing. Performing Organization Address City/[facility]/Zipcode Phone Number [address] [address] [phone] [place] Creatine Kinase (CK), Total and MB (06/17/2018 9:15 AM SHIPPING HELPER) Total CK 35 29 - 200 U/L [facility] CK-MB 1.3 0.0 - 6.6 ng/mL [facility] MB Relative Index 3.7 % [facility] Specimen Blood - Arm, Right Narrative Performed At CK-MB Reference Range: [facility] <6.7Normal 6.7-10.0Borderline >10.0 Abnormal Performing Organization Address [facility] Phone Number [address] [address] [place] POC-Lactic Acid, Venous (06/17/2018 9:14 AM SHIPPING HELPER) POC-Lactic Acid, Venous 3.4 (H)Comment: 0.9 - 1.7 mmol/L [facility] TESTED AT [address] [address] Specimen Blood Performing Organization Address [facility] Phone Number [address] [address] [place] XR chest 1 view portable / bedside (06/16/2018 8:00 PM SHIPPING HELPER) Narrative Performed At FINAL REPORT [facility] EXAMINATION: AP PORTABLE CHEST RADIOGRAPH CLINICAL INDICATION: Possible pneumothorax IMPRESSION: Compared with 06/16/2018, 1723 hours Overall aeration of the lungs has improved in the interval. Thin streaky reticular opacities are again noted in both lungs, most conspicuous in the perihilar regions and lung bases. Perihilar peribronchial thickening is also again noted. As previously described, findings are nonspecific but can be associated with reactive airways disease, infection, aspiration or interstitial lung disease. Mild superimposed pulmonary edema cannot be excluded. Of note, a new approximately 1.5 cm spiculated nodular opacity projects over the right lung base near the cardiophrenic sulcus. Although the finding may reflect atelectasis, an early pneumonia or small neoplasm cannot be excluded on today's limited AP portable study. The heart size is normal. Mediastinal contours are grossly stable. No definite evidence of a pneumothorax. Continued short-term radiographic surveillance recommended for the findings detailed above including the small right basilar nodular opacity (benign versus malignant). Chest CT may also be beneficial in further characterization if clinically appropriate. Signed: Tegan Aden MD Report Verified Date/Time:06/16/2018 20:26:41 Reading Location: [address] Reading Room Procedure Note Interface, External Ris In - 06/16/2018 8:28 PM SHIPPING HELPER FINAL REPORT EXAMINATION: AP PORTABLE CHEST RADIOGRAPH CLINICAL INDICATION: Possible pneumothorax IMPRESSION: Compared with 06/16/2018, 1723 hours Overall aeration of the lungs has improved in the interval. Thin streaky reticular opacities are again noted in both lungs, most conspicuous in the perihilar regions and lung bases. Perihilar peribronchial thickening is also again noted. As previously described, findings are nonspecific but can be associated with reactive airways disease, infection, aspiration or interstitial lung disease. Mild superimposed pulmonary edema cannot be excluded. Of note, a new approximately 1.5 cm spiculated nodular opacity projects over the right lung base near the cardiophrenic sulcus. Although the finding may reflect atelectasis, an early pneumonia or small neoplasm cannot be excluded on today's limited AP portable study. The heart size is normal. Mediastinal contours are grossly stable. No definite evidence of a pneumothorax. Continued short-term radiographic surveillance recommended for the findings detailed above including the small right basilar nodular opacity (benign versus malignant). Chest CT may also be beneficial in further characterization if clinically appropriate. Signed: Tegan Aden MD Report Verified Date/Time: 06/16/2018 20:26:41 Reading Location: [address] Reading Room Performing Organization Address [facility] Phone Number [facility] Hemoglobin and hematocrit (06/16/2018 6:23 PM SHIPPING HELPER) Hemoglobin 17.5 (H) 11.2 - 15.7 GM/DL [facility] Hematocrit 55.5 (H) 34.1 - 44.9 % [facility] Specimen Blood - Arm, Right Performing Organization Address [facility] [place] [address] CENTER XR chest PA or AP 1 view in dept (06/16/2018 5:50 PM SHIPPING HELPER) Narrative Performed At Addendum Begins [facility] REPORT STATUS:A Addendum: Results discussed with Dr. Padilla from urology at 1910 hours. Signed: Tegan Aden MD Report Verified Date/Time:06/16/2018 19:12:25 Reading Location: [address] Reading Room Addendum Ends FINAL REPORT EXAMINATION: AP PORTABLE CHEST RADIOGRAPH CLINICAL INDICATION: Shortness of breath IMPRESSION: No comparison studies are available. Scattered thin curvilinear as well as reticular opacities are noted in both lungs, most conspicuous in the perihilar regions along the heart borders. There is mild associated perihilar peribronchial cuffing. Findings are nonspecific but can be associated with reactive airways disease, infection, chronic aspiration or interstitial lung disease. The heart size is normal. Mediastinal contours are mildly indistinct reflecting the opacities detailed above. Of note, a subtle crescentic radiolucency projects over the right lung apex. Artifact versus a small pneumothorax with approximately 3 cm of apical pleural separation. Short-term imaging surveillance recommended, preferably with the patient in the upright position. Results discussed with the nurse caring for the patient at the time of dictation. She will notify the appropriate on-call clinician. Signed: Tegan Aden MD Report Verified Date/Time:06/16/2018 19:07:52 Reading Location: [address] Reading Room Procedure Note Interface, External Ris In - 06/16/2018 7:14 PM SHIPPING HELPER Addendum Begins REPORT STATUS:A Addendum: Results discussed with Dr. Padilla from urology at 1910 hours. Signed: Tegan Aden MD Report Verified Date/Time: 06/16/2018 19:12:25 Reading Location: [address] Reading Room Addendum Ends FINAL REPORT EXAMINATION: AP PORTABLE CHEST RADIOGRAPH CLINICAL INDICATION: Shortness of breath IMPRESSION: No comparison studies are available. Scattered thin curvilinear as well as reticular opacities are noted in both lungs, most conspicuous in the perihilar regions along the heart borders. There is mild associated perihilar peribronchial cuffing. Findings are nonspecific but can be associated with reactive airways disease, infection, chronic aspiration or interstitial lung disease. The heart size is normal. Mediastinal contours are mildly indistinct reflecting the opacities detailed above. Of note, a subtle crescentic radiolucency projects over the right lung apex. Artifact versus a small pneumothorax with approximately 3 cm of apical pleural separation. Short-term imaging surveillance recommended, preferably with the patient in the upright position. Results discussed with the nurse caring for the patient at the time of dictation. She will notify the appropriate on-call clinician. Signed: Tegan Aden MD Report Verified Date/Time: 06/16/2018 19:07:52 Reading Location: [address] Reading Room Performing Organization Address City/State/Zipcode Phone Number [facility] [place] interventional radiology tech in or 30 minute increments (06/16/2018 5:37 PM SHIPPING HELPER) Narrative Performed At FLUOROSCOPIC UNIT UTILIZED-NO INTERPRETATION REQUESTED. [facility] Procedure Note Interface, External Ris In - 06/21/2018 9:34 AM SHIPPING HELPER FLUOROSCOPIC UNIT UTILIZED-NO INTERPRETATION REQUESTED. Performing Organization Address City/[facility]/Zipcode Phone Number [facility] STONE ANALYSIS (06/16/2018 5:05 PM SHIPPING HELPER) Stone Source STONE [facility] Nidus Not observed [facility] COMPONENT 1 ([facility]) Carbonate Apatite (Dahllite) [facility] 100% INCORPORATED COMPONENT 2 ([facility]) DNR [facility] Stone Weight 0.0980 g [facility] Comment: INC[facility]PORATED The image will follow, unless test is cancelled or no picture is available to report. This test was developed and its analytical performance characteristics have been determined by [facility]. It has not been cleared or approved by the [place] Food and Drug Administration. This assay has been validated pursuant to the CLIA regulations and is used for clinical purposes. Specimen Calculus - Renal, Right Narrative Performed At Performing Lab [facility] *[facility] [place] [facility], [address] [place] [phone] Betsey Hicks MD, PhD Performing Organization Address [facility] Phone [place] [address] [id number] [place] [address] POCT , urine (06/16/2018 11:07 AM SHIPPING HELPER) Test Urine, POC Negative Control line present?, POC Yes Background clear?, POC Yes UPT Cassette Lot #, POC [id number] UPT Cassette Expiration Date, POC [id number] Type and screen, automated (06/16/2018 11:05 AM SHIPPING HELPER) ABO/RH AUTOMATED (BEAKER) A POSITIVE [facility] Ab Scrn NEGATIVE [facility] Specimen Blood Performing Organization Address City/State/Zipcode Phone Number [facility] [address] [place] [address] [phone] after 06/27/2017 Insurance Payer Benefit Plan / Subscriber ID Type Phone Address Group [employer] [facility] xxxxxxxxxxxx PPO [phone] [address] SHIELD POS/PPO/[place] [address] ([place] [address] Advance Directives For more information, please contact:[address] [phone] Code Status Date Activated Date Inactivated Comments Full Code 06/16/2018 10:08 PM This code status was determined by: Patient
--- OUTSIDE RECORDS SUMMARY | 2018-06-28 10:24 | XMS REPORT ---
:1970 [facility] [address] [place] [address] Care Team Providers Name Role Phone LINK, JONG BLANKENSHIP Unavailable Unavailable Problems This patient has no known problems. Allergies, Adverse Reactions, Alerts This patient has no known allergies or adverse reactions. Medications This patient has no known medications. Results Test Description Test Time Test Comments Text Results Atomic Results Result Comments BASIC METABOLIC PANEL 2018-06-22 07:13:00 Test Item Value Reference Range Comments SODIUM (BEAKER) (test 135 meq/L 136-145 qpqf=040) POTASSIUM (BEAKER) (test 3.4 meq/L 3.5-5.1 noaw=807) CHLORIDE (BEAKER) (test 104 meq/L 98-107 tmtp=573) CO2 (BEAKER) (test 26 meq/L 22-29 tepu=488) BLOOD UREA NITROGEN 6 mg/dL 7-21 (BEAKER) (test fmtr=001) CREATININE (BEAKER) (test 0.53 mg/dL 0.57-1.25 teoh=277) GLUCOSE RANDOM (BEAKER) 97 mg/dL 70-105 (test mgpy=209) CALCIUM (BEAKER) (test 8.6 mg/dL 8.4-10.2 rtfj=866) EGFR (BEAKER) (test 124 mL/min/1.73 sq m ESTIMATED GFR IS NOT mfws=4311) ACCURATE CREATININE CLEARANCE IN PREDICTING GLOMERULAR FILTRATION RATE. ESTIMATED GFR IS NOT APPLICABLE FOR DIALYSIS PATIENTS. CBC W/PLT COUNT & AUTO [id number] 06:40:00 Test Item Value Reference Range Comments WHITE BLOOD CELL COUNT (BEAKER) (test bhwf=068) 7.7 K/ L 3.5-10.5 RED BLOOD CELL COUNT (BEAKER) (test xizy=811) 4.82 M/ L 3.93-5.22 HEMOGLOBIN (BEAKER) (test fsza=388) 15.8 GM/DL 11.2-15.7 HEMATOCRIT (BEAKER) (test gghl=392) 47.6 % 34.1-44.9 MEAN CORPUSCULAR VOLUME (BEAKER) (test gedg=022) 98.8 fL 79.4-94.8 MEAN CORPUSCULAR HEMOGLOBIN (BEAKER) (test 32.8 pg 25.6-32.2 kfqu=785) MEAN CORPUSCULAR HEMOGLOBIN CONC (BEAKER) (test 33.2 GM/DL 32.2-35.5 yfvq=253) RED CELL DISTRIBUTION WIDTH (BEAKER) (test 14.7 % 11.7-14.4 jrfq=404) PLATELET COUNT (BEAKER) (test vwdf=932) 144 K/CU MM 150-450 MEAN PLATELET VOLUME (BEAKER) (test cvba=597) 12.5 fL 9.4-12.3 NUCLEATED RED BLOOD CELLS (BEAKER) (test 0 /100 WBC 0-0 zzop=230) NEUTROPHILS RELATIVE PERCENT (BEAKER) (test 51 % ibkb=704) LYMPHOCYTES RELATIVE PERCENT (BEAKER) (test 28 % eaoy=924) MONOCYTES RELATIVE PERCENT (BEAKER) (test 16 % ogou=599) EOSINOPHILS RELATIVE PERCENT (BEAKER) (test 3 % dxcv=440) BASOPHILS RELATIVE PERCENT (BEAKER) (test 2 % zems=258) NEUTROPHILS ABSOLUTE COUNT (BEAKER) (test 3.93 K/ L 1.56-6.13 yjxj=584) LYMPHOCYTES ABSOLUTE COUNT (BEAKER) (test 2.14 K/ L 1.18-3.74 igoc=286) MONOCYTES ABSOLUTE COUNT (BEAKER) (test 1.22 K/ L 0.24-0.36 ozzv=109) EOSINOPHILS ABSOLUTE COUNT (BEAKER) (test 0.22 K/ L 0.04-0.36 jbsy=445) BASOPHILS ABSOLUTE COUNT (BEAKER) (test 0.13 K/ L 0.01-0.08 qnmd=616) IMMATURE GRANULOCYTES-RELATIVE PERCENT (BEAKER) 1 % 0-1 (test ihur=9117) CBC W/PLT COUNT & AUTO [id number] 10:16:00 Test Item Value Reference Range Comments WHITE BLOOD CELL COUNT (BEAKER) (test ihou=958) 12.6 K/ L 3.5-10.5 RED BLOOD CELL COUNT (BEAKER) (test xqca=160) 4.77 M/ L 3.93-5.22 HEMOGLOBIN (BEAKER) (test xjpw=383) 16.2 GM/DL 11.2-15.7 HEMATOCRIT (BEAKER) (test kiqw=524) 47.2 % 34.1-44.9 MEAN CORPUSCULAR VOLUME (BEAKER) (test gfdd=295) 99.0 fL 79.4-94.8 MEAN CORPUSCULAR HEMOGLOBIN (BEAKER) (test 34.0 pg 25.6-32.2 bxeu=358) MEAN CORPUSCULAR HEMOGLOBIN CONC (BEAKER) (test 34.3 GM/DL 32.2-35.5 xkvn=196) RED CELL DISTRIBUTION WIDTH (BEAKER) (test 14.6 % 11.7-14.4 glwc=603) PLATELET COUNT (BEAKER) (test zomp=350) 118 K/CU MM 150-450 MEAN PLATELET VOLUME (BEAKER) (test muex=973) 11.9 fL 9.4-12.3 NUCLEATED RED BLOOD CELLS (BEAKER) (test 0 /100 WBC 0-0 ptft=839) (CELLAVISION MANUAL DIFF)2018-06-21 10:16:00 Test Item Value Reference Range Comments NEUTROPHILS - REL (CELLAVISION)(BEAKER) (test 68 % lusa=4378) LYMPHOCYTES - REL (CELLAVISION)(BEAKER) (test 11 % hlyf=5995) MONOCYTES - REL (CELLAVISION)(BEAKER) (test 9 % ddhw=3732) EOSINOPHILS - REL (CELLAVISION)(BEAKER) (test 1 % lshb=3234) BASOPHILS - REL (CELLAVISION)(BEAKER) (test 2 % hbko=5684) BANDS - REL (CELLAVISION)(BEAKER) (test cynb=1938) 8 % 0-10 ATYPICAL LYMPHOCYTES - REL (CELLAVISION)(BEAKER) 1 % 0-0 (test zlho=6550) NEUTROPHILS - ABS (CELLAVISION)(BEAKER) (test 8.57 K/ul 1.56-6.13 luuw=1359) LYMPHOCYTES - ABS (CELLAVISION)(BEAKER) (test 1.39 K/ul 1.18-3.74 dmsz=1791) MONOCYTES - ABS (CELLAVISION)(BEAKER) (test 1.13 K/uL 0.24-0.36 bxyf=6111) EOSINOPHILS - ABS (CELLAVISION)(BEAKER) (test 0.13 K/uL 0.04-0.36 crsq=7043) BASOPHILS - ABS (CELLAVISION)(BEAKER) (test 0.25 K/uL 0.01-0.08 volf=2512) BANDS - ABS (CELLAVISION)(BEAKER) (test sjur=4344) 1.01 K/uL 0.00-0.80 ATYPICAL LYMPHOCYTES - ABS (CELLAVISION)(BEAKER) 0.13 K/uL 0.00-0.00 (test fvui=3175) TOTAL COUNTED (BEAKER) (test umnx=2466) 100 WBC MORPHOLOGY (BEAKER) (test irci=042) Normal PLT MORPHOLOGY (BEAKER) (test rfzp=524) Normal ANISOCYTOSIS (BEAKER) (test xbvu=141) 1+ few MACROCYTES (BEAKER) (test geat=620) 1+ few POIKILOCYTES (BEAKER) (test uaac=113) 1+ few ARTIFACT (CELLAVISION)(BEAKER) (test oukx=7018) Present PLATELET CONCENTRATION (CELLAVISION)(BEAKER) (test Decreased dssg=9574) Received comment: User comments: Slide comments:JOAQUIN ORTA IN OR/30 MINUTE [id number] 09:34:00Reason for exam:->PCNLFLUOROSCOPIC UNIT UTILIZED -NO INTERPRETATION REQUESTED. BASIC METABOLIC [id number] 07:28:00 Test Item Value Reference Range Comments SODIUM (BEAKER) (test 133 meq/L 136-145 qpyp=711) POTASSIUM (BEAKER) (test 3.7 meq/L 3.5-5.1 kbuu=388) CHLORIDE (BEAKER) (test 102 meq/L 98-107 sgtw=678) CO2 (BEAKER) (test 25 meq/L 22-29 zfhs=201) BLOOD UREA NITROGEN 4 mg/dL 7-21 (BEAKER) (test psgd=862) CREATININE (BEAKER) (test 0.56 mg/dL 0.57-1.25 ubyv=095) GLUCOSE RANDOM (BEAKER) 108 mg/dL 70-105 (test rvwa=670) CALCIUM (BEAKER) (test 8.8 mg/dL 8.4-10.2 vkxg=662) EGFR (BEAKER) (test 116 mL/min/1.73 sq m ESTIMATED GFR IS NOT bqgx=8651) ACCURATE CREATININE CLEARANCE IN PREDICTING GLOMERULAR FILTRATION RATE. ESTIMATED GFR IS NOT APPLICABLE FOR DIALYSIS PATIENTS. COMPREHENSIVE METABOLIC [id number] 21:49:00 Test Item Value Reference Range Comments TOTAL PROTEIN (BEAKER) 5.9 gm/dL 6.0-8.3 (test dcxo=825) ALBUMIN (BEAKER) (test 2.9 g/dL 3.5-5.0 igop=0530) ALKALINE PHOSPHATASE 113 U/L 40-150 (BEAKER) (test bvub=823) BILIRUBIN TOTAL (BEAKER) 0.5 mg/dL 0.2-1.2 (test opcl=732) SODIUM (BEAKER) (test 135 meq/L 136-145 uiwu=465) POTASSIUM (BEAKER) (test 3.5 meq/L 3.5-5.1 bkhu=989) CHLORIDE (BEAKER) (test 102 meq/L 98-107 rjah=338) CO2 (BEAKER) (test 26 meq/L 22-29 fhae=329) BLOOD UREA NITROGEN 5 mg/dL 7-21 (BEAKER) (test lzvm=863) CREATININE (BEAKER) (test 0.58 mg/dL 0.57-1.25 hily=496) GLUCOSE RANDOM (BEAKER) 113 mg/dL 70-105 (test bpbu=551) CALCIUM (BEAKER) (test 8.9 mg/dL 8.4-10.2 gieb=863) AST (SGOT) (BEAKER) (test 23 U/L 5-34 oxzh=480) ALT (SGPT) (BEAKER) (test 26 U/L 6-55 kukq=037) EGFR (BEAKER) (test 111 mL/min/1.73 sq ESTIMATED GFR IS NOT kdgo=5798) m ACCURATE CREATININE CLEARANCE IN PREDICTING GLOMERULAR FILTRATION RATE. ESTIMATED GFR IS NOT APPLICABLE FOR DIALYSIS PATIENTS. URINE [id number] 06:28:00 Test Item Value Reference Range Comments CULTURE (BEAKER) (test snhn=1908) No growth BASIC METABOLIC [id number] 05:41:00 Test Item Value Reference Range Comments SODIUM (BEAKER) (test 134 meq/L 136-145 kmfu=641) POTASSIUM (BEAKER) (test 3.5 meq/L 3.5-5.1 qlwm=077) CHLORIDE (BEAKER) (test 107 meq/L 98-107 egkv=073) CO2 (BEAKER) (test 24 meq/L 22-29 anfp=237) BLOOD UREA NITROGEN 5 mg/dL 7-21 (BEAKER) (test rpnv=831) CREATININE (BEAKER) (test 0.55 mg/dL 0.57-1.25 nfmk=299) GLUCOSE RANDOM (BEAKER) 83 mg/dL 70-105 (test vbae=648) CALCIUM (BEAKER) (test 8.2 mg/dL 8.4-10.2 oiev=113) EGFR (BEAKER) (test 118 mL/min/1.73 sq m ESTIMATED GFR IS NOT mwsq=9916) ACCURATE CREATININE CLEARANCE IN PREDICTING GLOMERULAR FILTRATION RATE. ESTIMATED GFR IS NOT APPLICABLE FOR DIALYSIS PATIENTS. CBC (HEMOGRAM ONLY)2018-06-19 05:19:00 Test Item Value Reference Range Comments WHITE BLOOD CELL COUNT (BEAKER) (test cfwy=478) 11.4 K/ L 3.5-10.5 RED BLOOD CELL COUNT (BEAKER) (test fkqr=701) 4.26 M/ L 3.93-5.22 HEMOGLOBIN (BEAKER) (test hfiu=364) 14.2 GM/DL 11.2-15.7 HEMATOCRIT (BEAKER) (test ydjh=771) 43.7 % 34.1-44.9 MEAN CORPUSCULAR VOLUME (BEAKER) (test bgcd=524) 102.6 fL 79.4-94.8 MEAN CORPUSCULAR HEMOGLOBIN (BEAKER) (test 33.3 pg 25.6-32.2 kxnb=756) MEAN CORPUSCULAR HEMOGLOBIN CONC (BEAKER) (test 32.5 GM/DL 32.2-35.5 ysqi=481) RED CELL DISTRIBUTION WIDTH (BEAKER) (test 15.2 % 11.7-14.4 cxqp=231) PLATELET COUNT (BEAKER) (test yqtu=380) 88 K/CU MM 150-450 MEAN PLATELET VOLUME (BEAKER) (test ggjo=098) 12.1 fL 9.4-12.3 NUCLEATED RED BLOOD CELLS (BEAKER) (test 0 /100 WBC 0-0 trak=398) BLOOD CULTURE IDENTIFICATION [id number] 00:53:00 Test Item Value Reference Range Comments LISTERIA MONOCYTOGENES (test yheu=2165838) Not detected Not detected STAPHYLOCOCCUS (test veyy=6477931) Not detected Not detected STAPHYLOCOCCUS AUREUS (test yesp=8871587) Not detected Not detected STREPTOCOCCUS (test wwph=3674568) Not detected Not detected STREPTOCOCCUS AGALACTIAE (GROUP B) (test Not detected Not detected hfkc=6966864) STREPTOCOCCUS PNEUMONIAE (test zckr=4830174) Not detected Not detected STREPTOCOCCUS PYOGENES (GROUP A) (test Not detected Not detected wfin=0627765) ACINETOBACTER BAUMANNII (test ajtl=8967041) Not detected Not detected HAEMOPHILUS INFLUENZAE (test xxjf=2084173) Not detected Not detected NEISSERIA MENINGITIDIS (test fwcf=8764759) Not detected Not detected ENTEROBACTERIACEAE (test nbpn=7079314) Not detected Not detected ENTEROBACTER CLOACOE COMPLEX (test Not detected Not detected ttni=2042872) KLEBSIELLA OXYTOCA (test fqhq=5811916) Not detected Not detected KLEBSIELLA PNEUMONIAE (test umbt=5866) Not detected Not detected PROTEUS (test hsnr=3446137) Not detected Not detected SERRATIA MARCESCENS (test lukl=3249037) Not detected Not detected AMRIT ALBICANS (test pdle=9986905) Not detected Not detected AMRIT GLABRATA (test aqcn=0090476) Not detected Not detected AMRIT KRUSEI (test ziwz=0190812) Not detected Not detected AMRIT PARAPSILOSIS (test coll=8117094) Not detected Not detected AMRIT TROPICALIS (test nsrq=4824113) Not detected Not detected ESCHERICHIA COLI (test ctcf=0076781) Not detected Not detected METHICILLIN-RESISTANCE GENE (test otui=4528049) Not detected VANCOMYCIN-RESISTANCE GENE (test bnoh=6281540) Not detected CARBAPENEM-RESISTANCE GENE (test tfzw=7856868) Not detected ENTEROCOCCUS-BEAKER (test xpcq=9604792) Not detected Not detected PSEUDOMONAS AERUGINOSA-BEAKER (test Not detected Not detected pxyv=5964184) Other bacteria and resistance markers not targeted by this PCR panel cannot be excluded; therefore clinical correlation and follow up of serology, culture results, and other molecular studies is required. The results are not intended to be used as the sole means for clinical diagnosis or patient management decisions. This sample was tested at the [facility] using the [employer] Film[employer] Blood Culture ID Panel. It is FDA cleared and has been verified and approved by the [facility] for clinical use. This laboratory is CLIA-certified and College ofAmerican Pathologists (CAP)-accredited to perform high complexity testing.BASIC METABOLIC [id number] 06:14:00 Test Item Value Reference Range Comments SODIUM (BEAKER) (test 136 meq/L 136-145 sjeu=358) POTASSIUM (BEAKER) (test 3.6 meq/L 3.5-5.1 skhh=015) CHLORIDE (BEAKER) (test 110 meq/L 98-107 vqzh=399) CO2 (BEAKER) (test 24 meq/L 22-29 snur=353) BLOOD UREA NITROGEN 7 mg/dL 7-21 (BEAKER) (test tgns=274) CREATININE (BEAKER) (test 0.56 mg/dL 0.57-1.25 yqba=581) GLUCOSE RANDOM (BEAKER) 86 mg/dL 70-105 (test thpf=263) CALCIUM (BEAKER) (test 7.7 mg/dL 8.4-10.2 bawk=469) EGFR (BEAKER) (test 116 mL/min/1.73 sq m ESTIMATED GFR IS NOT zzad=6496) ACCURATE CREATININE CLEARANCE IN PREDICTING GLOMERULAR FILTRATION RATE. ESTIMATED GFR IS NOT APPLICABLE FOR DIALYSIS PATIENTS. CBC (HEMOGRAM ONLY)2018-06-18 04:11:00 Test Item Value Reference Range Comments WHITE BLOOD CELL COUNT (BEAKER) (test iavw=289) 16.8 K/ L 3.5-10.5 RED BLOOD CELL COUNT (BEAKER) (test uzkr=834) 4.20 M/ L 3.93-5.22 HEMOGLOBIN (BEAKER) (test aipz=637) 14.1 GM/DL 11.2-15.7 HEMATOCRIT (BEAKER) (test alfj=548) 43.5 % 34.1-44.9 MEAN CORPUSCULAR VOLUME (BEAKER) (test hylb=485) 103.6 fL 79.4-94.8 MEAN CORPUSCULAR HEMOGLOBIN (BEAKER) (test 33.6 pg 25.6-32.2 tfip=055) MEAN CORPUSCULAR HEMOGLOBIN CONC (BEAKER) (test 32.4 GM/DL 32.2-35.5 rukv=356) RED CELL DISTRIBUTION WIDTH (BEAKER) (test 15.8 % 11.7-14.4 dstp=715) PLATELET COUNT (BEAKER) (test snkd=385) 102 K/CU MM 150-450 MEAN PLATELET VOLUME (BEAKER) (test heuh=275) 12.1 fL 9.4-12.3 NUCLEATED RED BLOOD CELLS (BEAKER) (test 0 /100 WBC 0-0 gbyl=610) LACTIC ACID, ARTERIAL, WHOLE [id number] 16:48:00 Test Item Value Reference Range Comments LACTATE BLOOD ARTERIAL (2) 1.5 mmol/L 0.5-2.2 Specimen slightly hemolyzed (BEAKER) (test sgzy=9969) URINALYSIS W/ REFLEX URINE [id number] 14:41:00 Test Item Value Reference Range Comments COLOR (BEAKER) (test znpl=671) Yellow CLARITY (BEAKER) (test jlxx=134) Clear SPECIFIC GRAVITY UA (BEAKER) (test zqwo=521) 1.006 1.001-1.035 PH UA (BEAKER) (test dfym=004) 6.0 5.0-8.0 PROTEIN UA (BEAKER) (test lvqn=402) 10 mg/dL Negative GLUCOSE UA (BEAKER) (test idsr=272) Negative Negative KETONES UA (BEAKER) (test tmnq=844) Negative Negative BILIRUBIN UA (BEAKER) (test jwur=843) Negative Negative BLOOD UA (BEAKER) (test rfwj=365) Large Negative NITRITE UA (BEAKER) (test rqru=390) Negative Negative LEUKOCYTE ESTERASE UA (BEAKER) (test jjra=565) Large Negative UROBILINOGEN UA (BEAKER) (test podt=915) 0.2 mg/dL 0.2-1.0 RBC UA (BEAKER) (test joyv=180) 66 /HPF WBC UA (BEAKER) (test anqy=786) 57 /HPF BACTERIA (BEAKER) (test ejbb=978) Occasional MUCUS (BEAKER) (test pmiv=0160) Rare SQUAMOUS EPITHELIAL (BEAKER) (test avdq=002) 2 /HPF SOURCE(BEAKER) (test rrgj=5103) CBC W/PLT COUNT & AUTO [id number] 14:01:00 Test Item Value Reference Range Comments WHITE BLOOD CELL COUNT (BEAKER) (test cfsz=263) 24.4 K/ L 3.5-10.5 RED BLOOD CELL COUNT (BEAKER) (test kvfn=861) 4.40 M/ L 3.93-5.22 HEMOGLOBIN (BEAKER) (test vdzu=902) 14.9 GM/DL 11.2-15.7 HEMATOCRIT (BEAKER) (test jjes=959) 47.0 % 34.1-44.9 MEAN CORPUSCULAR VOLUME (BEAKER) (test fwif=228) 106.8 fL 79.4-94.8 MEAN CORPUSCULAR HEMOGLOBIN (BEAKER) (test 33.9 pg 25.6-32.2 siab=456) MEAN CORPUSCULAR HEMOGLOBIN CONC (BEAKER) (test 31.7 GM/DL 32.2-35.5 uuuv=749) RED CELL DISTRIBUTION WIDTH (BEAKER) (test 15.7 % 11.7-14.4 gsem=178) PLATELET COUNT (BEAKER) (test rint=281) 117 K/CU MM 150-450 MEAN PLATELET VOLUME (BEAKER) (test vtez=496) 11.4 fL 9.4-12.3 NUCLEATED RED BLOOD CELLS (BEAKER) (test 0 /100 WBC 0-0 lyrn=156) (CELLAVISION MANUAL DIFF)2018-06-17 14:01:00 Test Item Value Reference Range Comments NEUTROPHILS - REL (CELLAVISION)(BEAKER) (test 74 % qafk=5763) LYMPHOCYTES - REL (CELLAVISION)(BEAKER) (test 3 % cxza=6797) BANDS - REL (CELLAVISION)(BEAKER) (test 23 % 0-10 bcft=6220) NEUTROPHILS - ABS (CELLAVISION)(BEAKER) (test 18.06 K/ul 1.56-6.13 gsen=4010) LYMPHOCYTES - ABS (CELLAVISION)(BEAKER) (test 0.73 K/ul 1.18-3.74 bicl=8022) BANDS - ABS (CELLAVISION)(BEAKER) (test 5.61 K/uL 0.00-0.80 dhnx=6004) TOTAL COUNTED (BEAKER) (test luwk=4627) 100 RBC MORPHOLOGY (BEAKER) (test xady=443) Normal WBC MORPHOLOGY (BEAKER) (test xojn=377) Normal PLT MORPHOLOGY (BEAKER) (test jmip=164) Normal ARTIFACT (CELLAVISION)(BEAKER) (test fceq=6537) Present PLATELET CONCENTRATION (CELLAVISION)(BEAKER) Decreased (test cxzo=9415) Received comment: User comments: Slide comments:TROPONIN [id number] 13:38:00 Test Item Value Reference Range Comments TROPONIN I (BEAKER) (test vdwh=095) 0.28 ng/mL 0.00-0.03 Troponin I (TnI) levels must be interpreted in the context of the presenting symptoms and the clinical findings. Elevated TnI levels indicate myocardial damage, but are not specific for ischemic heart disease. Elevated TnI levels are seen in patients with other cardiac conditions (including myocarditis and congestive heart failure), and slight TnI elevations occur in patients with other conditions, including sepsis, renal failure, acidosis, acute neurological disease, and persistent tachyarrhythmia.CT, [id number] 10:24:00DO NOT GIVE ANY CONTRASTNO ORAL CONTRASTFINAL REPORT CT scan of the abdomen and [...] the gallbladder with gallbladder wall edema identified. Diffuseanasarca is seen. Areas of mesenteric edema are [...] bladder. Bone windows demonstrate no focal abnormality. IMPRESSION:1. Bilateral nonocclusive renal calculi, more so on the right side withmild right-sided hydronephrosis and a stent in the right collecting system.2. Right-sided perinephric stranding including some high attenuation material, possibly hemorrhage.3. Diffuse anasarca, small effusions with adjacent atelectasis or consolidation, gallbladder edema and stranding along the root of the mesentery. This is more than is typical for a renal calculus and an underlying second process causing third spacing is likely present.4. Study limited by lack of contrast.5. Other findings as described above. Signed: Ganesh Santizo MDReport Verified Date/Time : 06/17/2018 10:24:20 Reading Location: [address] Ortho Consult Reading Room CREATINE KINASE (CK), TOTAL AND [id number] 10:20:00 Test Item Value Reference Range Comments CREATINE KINASE TOTAL (BEAKER) (test qenf=017) 35 U/L 29-200 CREATINE KINASE-MB (BEAKER) (test caad=308) 1.3 ng/mL 0.0-6.6 CREATINE KINASE-MB INDEX (BEAKER) (test ydqi=416) 3.7 % CK-MB Reference Range:<6.7 Normal6.7-10.0 Borderline>10.0 AbnormalPOCT-LACTIC ACID, [id number] 09:23:00 Test Item Value Reference Range Comments POC-LACTIC ACID, VENOUS 3.4 mmol/L 0.9-1.[address] [facility] [address] [facility] (BEAKER) (test hqzj=8639) [facility] [address] BASIC METABOLIC [id number] 05:29:00 Test Item Value Reference Range Comments SODIUM (BEAKER) (test 134 meq/L 136-145 hvek=111) POTASSIUM (BEAKER) (test 3.8 meq/L 3.5-5.1 jwwd=720) CHLORIDE (BEAKER) (test 109 meq/L 98-107 adkd=970) CO2 (BEAKER) (test 18 meq/L 22-29 jmfe=380) BLOOD UREA NITROGEN 8 mg/dL 7-21 (BEAKER) (test xxyc=051) CREATININE (BEAKER) (test 0.67 mg/dL 0.57-1.25 oack=273) GLUCOSE RANDOM (BEAKER) 127 mg/dL 70-105 (test rwjb=023) CALCIUM (BEAKER) (test 7.2 mg/dL 8.4-10.2 zwjl=144) EGFR (BEAKER) (test 94 mL/min/1.73 sq m ESTIMATED GFR IS NOT jkkv=0869) ACCURATE CREATININE CLEARANCE IN PREDICTING GLOMERULAR FILTRATION RATE. ESTIMATED GFR IS NOT APPLICABLE FOR DIALYSIS PATIENTS. CBC (HEMOGRAM ONLY)2018-06-17 04:44:00 Test Item Value Reference Range Comments WHITE BLOOD CELL COUNT (BEAKER) (test zvzp=513) 21.0 K/ L 3.5-10.5 RED BLOOD CELL COUNT (BEAKER) (test uduu=643) 4.12 M/ L 3.93-5.22 HEMOGLOBIN (BEAKER) (test zhik=623) 14.0 GM/DL 11.2-15.7 HEMATOCRIT (BEAKER) (test egbo=456) 43.3 % 34.1-44.9 MEAN CORPUSCULAR VOLUME (BEAKER) (test hoto=233) 105.1 fL 79.4-94.8 MEAN CORPUSCULAR HEMOGLOBIN (BEAKER) (test 34.0 pg 25.6-32.2 berp=926) MEAN CORPUSCULAR HEMOGLOBIN CONC (BEAKER) (test 32.3 GM/DL 32.2-35.5 rivv=809) RED CELL DISTRIBUTION WIDTH (BEAKER) (test 15.5 % 11.7-14.4 gkuw=598) PLATELET COUNT (BEAKER) (test jdmz=787) 103 K/CU MM 150-450 MEAN PLATELET VOLUME (BEAKER) (test useo=484) 10.9 fL 9.4-12.3 NUCLEATED RED BLOOD CELLS (BEAKER) (test 0 /100 WBC 0-0 anrj=480) BASIC METABOLIC [id number] 21:41:00 Test Item Value Reference Range Comments SODIUM (BEAKER) (test 141 meq/L 136-145 wqus=497) POTASSIUM (BEAKER) (test 3.4 meq/L 3.5-5.1 raxv=249) CHLORIDE (BEAKER) (test 109 meq/L 98-107 nwtn=368) CO2 (BEAKER) (test 23 meq/L 22-29 gvsz=313) BLOOD UREA NITROGEN 8 mg/dL 7-21 (BEAKER) (test wlco=425) CREATININE (BEAKER) (test 0.68 mg/dL 0.57-1.25 hpnp=581) GLUCOSE RANDOM (BEAKER) 115 mg/dL 70-105 (test vyju=865) CALCIUM (BEAKER) (test 7.6 mg/dL 8.4-10.2 xqrt=745) EGFR (BEAKER) (test 93 mL/min/1.73 sq m ESTIMATED GFR IS NOT bqai=0392) ACCURATE CREATININE CLEARANCE IN PREDICTING GLOMERULAR FILTRATION RATE. ESTIMATED GFR IS NOT APPLICABLE FOR DIALYSIS PATIENTS. CBC W/PLT COUNT & AUTO [id number] 21:13:00 Test Item Value Reference Range Comments WHITE BLOOD CELL COUNT (BEAKER) (test nbeb=139) 9.2 K/ L 3.5-10.5 RED BLOOD CELL COUNT (BEAKER) (test vpdr=544) 4.49 M/ L 3.93-5.22 HEMOGLOBIN (BEAKER) (test zjoc=912) 15.3 GM/DL 11.2-15.7 HEMATOCRIT (BEAKER) (test pnrp=921) 47.2 % 34.1-44.9 MEAN CORPUSCULAR VOLUME (BEAKER) (test llpv=153) 105.1 fL 79.4-94.8 MEAN CORPUSCULAR HEMOGLOBIN (BEAKER) (test 34.1 pg 25.6-32.2 ixbo=233) MEAN CORPUSCULAR HEMOGLOBIN CONC (BEAKER) (test 32.4 GM/DL 32.2-35.5 ciyp=566) RED CELL DISTRIBUTION WIDTH (BEAKER) (test 15.6 % 11.7-14.4 ehli=632) PLATELET COUNT (BEAKER) (test gwrd=318) 104 K/CU MM 150-450 MEAN PLATELET VOLUME (BEAKER) (test jpjq=348) 10.6 fL 9.4-12.3 NUCLEATED RED BLOOD CELLS (BEAKER) (test 0 /100 WBC 0-0 dqev=091) NEUTROPHILS RELATIVE PERCENT (BEAKER) (test 98 % winb=308) LYMPHOCYTES RELATIVE PERCENT (BEAKER) (test 1 % rntp=799) MONOCYTES RELATIVE PERCENT (BEAKER) (test 0 % cwax=792) EOSINOPHILS RELATIVE PERCENT (BEAKER) (test 0 % xrpc=316) BASOPHILS RELATIVE PERCENT (BEAKER) (test 0 % tspt=039) NEUTROPHILS ABSOLUTE COUNT (BEAKER) (test 9.01 K/ L 1.56-6.13 fklh=980) LYMPHOCYTES ABSOLUTE COUNT (BEAKER) (test 0.12 K/ L 1.18-3.74 rjky=591) MONOCYTES ABSOLUTE COUNT (BEAKER) (test 0.04 K/ L 0.24-0.36 pnjt=173) EOSINOPHILS ABSOLUTE COUNT (BEAKER) (test 0.00 K/ L 0.04-0.36 wnzi=349) BASOPHILS ABSOLUTE COUNT (BEAKER) (test 0.02 K/ L 0.01-0.08 puda=194) IMMATURE GRANULOCYTES-RELATIVE PERCENT (BEAKER) 0 % 0-1 (test izlp=9171) RAD, CHEST, 1 VIEW, NON [id number] 20:26:00Make sure patient is sitting upright.Reason for exam:->suspect pneumothoraxShould this be performed at the bedside?->YesFINAL REPORT EXAMINATION: AP PORTABLE CHEST RADIOGRAPH CLINICAL INDICATION: Possible pneumothorax IMPRESSION : Compared with 06/16/2018, 1723 hours Overall aeration [...] lung disease. Mild superimposed pulmonary edema cannot beexcluded. Of note, a new approximately 1.5 cm [...] characterization if clinically appropriate. Signed: Tegan Aden MDReport Verified Date/Time: 06/16/2018 20:26:41 Reading Location: [address] Reading Room Electronically signed by: TEGAN ADEN M.D. on 03/2018 08:26 [facility] [id number] 19:49:00 Test Item Value Reference Range Comments SODIUM (BEAKER) (test 140 meq/L 136-145 pjmp=204) POTASSIUM (BEAKER) (test 3.6 meq/L 3.5-5.1 Specimen slightly vlxc=886) hemolyzed CHLORIDE (BEAKER) (test 110 meq/L 98-107 mgff=643) CO2 (BEAKER) (test 18 meq/L 22-29 bxyo=352) BLOOD UREA NITROGEN 8 mg/dL 7-21 (BEAKER) (test xykx=291) CREATININE (BEAKER) (test 0.70 mg/dL 0.57-1.25 Specimen slightly ljbp=093) hemolyzed GLUCOSE RANDOM (BEAKER) 98 mg/dL 70-105 (test rdpm=674) CALCIUM (BEAKER) (test 8.0 mg/dL 8.4-10.2 qlyc=295) EGFR (BEAKER) (test 90 mL/min/1.73 sq m ESTIMATED GFR IS NOT edjs=6180) ACCURATE CREATININE CLEARANCE IN PREDICTING GLOMERULAR FILTRATION RATE. ESTIMATED GFR IS NOT APPLICABLE FOR DIALYSIS PATIENTS. HEMOGLOBIN AND [id number] 19:25:00 Test Item Value Reference Range Comments HEMOGLOBIN (BEAKER) (test kzhh=331) 17.5 GM/DL 11.2-15.7 HEMATOCRIT (BEAKER) (test qpew=817) 55.5 % 34.1-44.9 RAD, CHEST, PA OR AP, 1 [id number] 19:12:00Reason for exam:->post - opAddendum BeginsREPORT STATUS:A Addendum: Results discussed with Dr. Padilla from urology at 1910 hours. Signed: Tegan Aden Verified Date/Time: 06/16/2018 19:12:25 Reading Location: [address] RoomAddendum EndsFINAL REPORT EXAMINATION: AP PORTABLE CHEST RADIOGRAPH CLINICAL [...] approximately 3 cm of apical pleural separation. Short- term imaging surveillance recommended, preferably with the patient in the upright position. Results discussed with the nurse caring for the patientat the time of dictation. She will notify the appropriate on-call clinician. Signed: Tegan Aden Verified Date/Time: 06/16/2018 19:07:52 Reading Location : [address] Reading Room
[2018-06-28 11:34] LABS: Urine Blood NEGATIVE (NEG); Urine Glucose NEGATIVE (NEG); Urine Protein 2+ (NEG); Urine Specific Gravity >1.030 (1.005-1.030); Urine pH 5.5 (5.0-7.0)
[2018-06-28] MEDS ORDERED: NA CHLORIDE 0.9% 1,000 ML ONE (11:54)
[2018-06-28] MEDS ORDERED: ONDANSETRON 4 MG/2 ML VIAL ONE (11:54)
[2018-06-28] MEDS ORDERED: CEFTRIAXONE/SWI 1gm 1 GM/10 ML SYR ONE (11:55)
[2018-06-28] MEDS ORDERED: METRONIDAZOLE 500mg IVPB 500 MG/100 ML BAG IV ONE (11:55)
--- NOTE | 2018-06-28 12:23 | RAD REPORT ---
EXAM DESCRIPTION: CT - Stone Protocol - 06/28/2018 11:58 am CLINICAL HISTORY: Abdominal pain. Right flank pain for 4 days COMPARISON: April 2018 TECHNIQUE: Computed axial tomography of the abdomen pelvis was obtained without oral or IV contrast. Lack of IV and oral contrast limits evaluation of solid organs, bowel, and vessels. Coronal reformat maria l images were obtained and reviewed. All CT scans are performed using dose optimization technique as appropriate and may include automated exposure control or mA/KV adjustment according to patient size. FINDINGS: The right ureteral stent has been removed. Ill-defined fluid is present within the right l ateral pararenal space. Stranding within the right perirenal fat. Small nonobstructing bilateral henrik l calculi. Mild right hydronephrosis. Right ureter is mildly dilated. Stranding is present within the right periureteral fat. A ureteral calculus is not visualized. Bladder calculus is not seen. The liver, spleen, pancreas and adrenals appear grossly normal There is no evidence of diverticulitis. No gross abnormality of the appendix is noted. Small uterine calcified fibroid suspected. IMPRESSION: Mild right hydronephrosis and right hydroureter with perirenal and periureteral strandin g. Ill-defined fluid within the lateral right pararenal space. These findings may indicate infection. An obstructing ureteral calculus is not seen.
[2018-06-28 12:27] LABS: Absolute Lymphocytes (CBC) 1.8 K/uL (0.7-4.9); Absolute Monocytes 0.6 K/uL (0.1-1.3); Absolute Neutrophil 4.9 K/uL (1.8-8.0); Basophils % 3.3 % (0-1.3); Eosinophils % 2.1 % (0-4.4); Hematocrit 49.3 % (36.0-45.0); Lymphocytes % 23.2 % (15.3-44.8); MCH 34.9 pg (27.0-35.0); MCV 99.5 fL (80-100); MPV 9.8 fL (7.6-11.3); Monocytes % 7.7 % (3.3-12.3); RBC Red Blood Cell Count 4.95 M/uL (3.86-4.86)
[2018-06-28 12:32] LABS: ALT/SGPT 52 U/L (12-78); AST/SGOT 67 U/L (15-37); Albumin 3.3 g/dL (3.4-5.0); Alkaline Phosphatase 122 U/L (45-117); BUN Blood Urea Nitrogen 12 mg/dL (7-18); Bicarbonate 27 mmol/L (21-32); Bilirubin Direct 0.1 mg/dL (0-0.2); Bilirubin Total 0.4 mg/dL (0.2-1.0); Glucose Level 97 mg/dL (74-106); Lipase 165 U/L (73-393); Protein, Total 8.4 g/dL (6.4-8.2); Sodium Level 137 mmol/L (136-145)
[2018-06-28 13:04] LABS: Anisocytosis 1+; Blood Morphology Comment NOTED (NOT SEEN); Macrocytosis 1+; Platelet Estimate INCR; Polychromasia SLIGHT; Urine White Blood Cell Casts OK
--- NOTE | 2018-06-28 13:32 | EDPHYS ---
Physician Documentation [facility] Name: Desire Green Age: 48 yrs Sex: Female : 1970 Arrival Date: 06/28/2018 Time: 10:24 Bed 15 Private MD: None, None ED Physician Ryan Mcgarry HPI: 06/28 11:17 This 48 yrs old Female presents to ER via Ambulatory with complaints of ma2 Vomiting, Dizziness. 11:17 The patient presents to the emergency department with nausea, that is moderate, ma2 dizziness. Onset: The symptoms/episode began/occurred gradually, 1 day(s) ago. Possible causes: uti. Associated signs and symptoms: Pertinent positives: nausea, Pertinent negatives: abdominal pain, belching, constipation, dysuria, fever, flatulence, nausea, vomiting. Severity of symptoms: At their worst the symptoms were mild in the emergency department the symptoms are unchanged. The patient has not experienced similar symptoms in the past. hx of kideny stone had lithiotherapy last week here with nausea feels tired no pain or fever or dysuria still has stones . 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 - Social history:: Smoking status: Patient uses tobacco products, smokes one pack cigarettes per day. Patient/guardian denies using alcohol, street drugs, The patient lives with family. - Ebola Screening: : No symptoms or risks identified at this time. - Family history:: not pertinent, pertinent for. - Hospitalizations: : No recent hospitalization is reported. ROS: 11:17 Abdomen/GI: Negative for abdominal pain, nausea, diarrhea, and constipation, Back: ma2 Negative for injury and pain, : Negative for injury, bleeding, discharge, and swelling, MS/Extremity: Negative for injury and deformity. 11:17 Constitutional: Positive for fatigue, malaise, Negative for body aches. 11:17 All other systems are negative. Exam: 11:17 Constitutional: This is a well developed, well nourished patient who is awake, alert, ma2 and in no acute distress. Chest/axilla: Normal chest wall appearance and motion. Nontender with no deformity. No lesions are appreciated. Cardiovascular: Regular rate and rhythm with a normal S1 and S2. No gallops, murmurs, or rubs. Normal PMI, no JVD. No pulse deficits. Respiratory: Lungs have equal breath sounds bilaterally, clear to auscultation and percussion. No rales, rhonchi or wheezes noted. No increased work of breathing, no retractions or nasal flaring. Abdomen/GI: Soft, non-tender, with normal bowel sounds. No distension or tympany. No guarding or rebound. No evidence of tenderness throughout. MS/ Extremity: Pulses equal, no cyanosis. Neurovascular intact. Full, normal range of motion. Neuro: Awake and alert, GCS 15, oriented to person, place, time, and situation. Cranial nerves II-XII grossly intact. Motor strength 5/5 in all extremities. Sensory grossly intact. Cerebellar exam normal. Normal gait. Vital Signs: 10:36 BP 117 / 88; Pulse 88; Resp 18 S; Temp 97.6(O); Pulse Ox 100% on R/A; Weight 42.64 kg 7 (R); Height 5 ft. 2 in. (157.48 cm) (R); Pain 7/10; 11:40 BP 114 / 70; Pulse 84; Resp 16; Pulse Ox 99% ; Pain 5/10; ls4 12:30 BP 109 / 64; Pulse 73; Resp 16; Pulse Ox 99% ; ls4 14:02 BP 102 / 61; Pulse 74; Resp 16; Pulse Ox 99% on R/A; Pain 3/10; ls4 10:36 Body Mass Index 17.19 (42.64 kg, 157.48 cm) [facility] MDM: 10:40 Patient medically screened. [facility] 11:17 Differential diagnosis: pancreatitis, appendicitis, viral gastroenteritis, il2 gastroenteritis, uti vs obstruction. 13:29 Differential diagnosis: patient has mild hydro with uti no SIRS symptoms resolved in il2 er.. will send her home on levofloxacin. return precaution given. Data reviewed: vital signs, nurses notes, diagnostic data from outside facility. Counseling: I had a detailed discussion with the patient and/or guardian regarding: the historical points, exam findings, and any diagnostic results supporting the discharge/admit diagnosis, the presence of at least one elevated blood pressure reading (>120/80) during this emergency department visit, the need for outpatient follow up. Response to treatment: the patient's symptoms have resolved after treatment. 06/28 10:50 Order name: Urine Dipstick--Ancillary (enter results) 06/28 10:50 Order name: Urine --Ancillary (enter results) 06/28 11:17 Order name: Basic Metabolic Panel [facility] 06/28 11:17 Order name: CBC with Diff [facility] 06/28 11:17 Order name: Creatinine for Radiology [facility] 06/28 11:17 Order name: Hepatic Function [facility] 06/28 11:17 Order name: Lipase [facility] 06/28 11:34 Order name: Urine --Ancillary; Complete Time: 12:14 EDMS 06/28 11:34 Order name: Urine Dipstick-Ancillary; Complete Time: 12:14 EDMS 06/28 12:31 Order name: Creatinine (Radiology Only); Complete Time: 13:28 EDMS 06/28 12:33 Order name: Basic Metabolic Panel; Complete Time: 13:28 EDMS 06/28 12:33 Order name: Liver (Hepatic) Function; Complete Time: 13:28 EDMS 06/28 12:33 Order name: Lipase; Complete Time: 13:28 EDMS 06/28 12:38 Order name: CBC with Automated Diff; Complete Time: 13:28 EDMS 06/28 11:17 Order name: IV Saline Lock; Complete Time: 11:23 [facility] 06/28 11:17 Order name: Labs collected and sent; Complete Time: 11:47 [facility] 06/28 11:21 Order name: CT Stone Protocol [facility] 06/28 12:24 Order name: CT; Complete Time: 13:28 EDMS 06/28 13:06 Order name: CBC Smear Scan; Complete Time: 13:28 EDMS Administered Medications: 11:53 Drug: NS 0.9% 1000 ml Route: IV; Rate: 1 bolus; Site: right antecubital; ls4 13:22 Follow up: IV Status: Completed infusion; IV Intake: 1000ml ls4 11:53 Drug: Rocephin 1 grams Route: IV; Rate: 1 calculated rate; Site: right antecubital; ls4 12:03 Follow up: IV Status: Completed infusion; IV Intake: 10ml ls4 11:53 Drug: Flagyl 500 mg Volume: 100 ml; Route: IVPB; Rate: 200 ml/hr; Infused Over: 30 ls4 mins; Site: right antecubital; 12:40 Follow up: IV Status: Completed infusion; IV Intake: 50ml ls4 11:53 Drug: Zofran 4 mg Route: IVP; Site: right antecubital; ls4 12:32 Follow up: Response: No adverse reaction ls4 Disposition: 06/28/18 13:31 Discharged to Home. Impression: Chronic obstructive pyelonephritis. - Condition is Stable. - Discharge Instructions: Pyelonephritis, Adult. - Prescriptions for Levaquin 750 mg Oral Tablet - take 1 tablet by ORAL route once daily for 10 days; 10 tablet. Tylenol- Codeine #3 300-30 mg Oral Tablet - take 2 tablet by ORAL route every 6 hours As needed; 30 tablet. - Medication Reconciliation Form, Thank You Letter, Antibiotic Education, Prescription Opioid Use form. - Follow up: Private Physician; When: Tomorrow; Reason: Continuance of care. Signatures: Dispatcher [employer] Do Gomez RN RN jl7 Ryan Mcgarry MD MD ma2 Karen Granda RN RN ls4 Corrections: (The following items were deleted from the chart) 13:57 13:31 06/28/2018 13:31 Discharged to Home. Impression: Chronic obstructive ls4 pyelonephritis. Condition is Stable. Forms are Medication Reconciliation Form, Thank You Letter, Antibiotic Education, Prescription Opioid Use. Follow up: Private Physician; When: Tomorrow; Reason: Continuance of care. [facility] 14:22 13:57 06/28/2018 13:31 Discharged to Home. Impression: Chronic obstructive ls4 pyelonephritis. Condition is Stable. Discharge Instructions: Pyelonephritis, Adult. Prescriptions for Levaquin 750 mg Oral Tablet - take 1 tablet by ORAL route once daily for 10 days; 10 tablet, Tylenol-Codeine #3 300-30 mg Oral Tablet - take 2 tablet by ORAL route every 6 hours As needed; 30 tablet. and Forms are Medication Reconciliation Form, Thank You Letter, Antibiotic Education, Prescription Opioid Use. Follow up: Private Physician; When: Tomorrow; Reason: Continuance of care. ls4
--- NOTE | 2018-06-28 13:32 | ER ---
Nurse's Notes [facility] Name: Desire Green Age: 48 yrs Sex: Female : 1970 Arrival Date: 06/28/2018 Time: 10:24 Bed 15 Private MD: None, None Diagnosis: Chronic obstructive pyelonephritis Presentation: 06/28 10:33 Presenting complaint: Patient states: N/V and dizziness started this morning, right jl7 flank pain started x 4day since I got out of the hospital for a bladder infection. Transition of care: patient was not received from another setting of care. Onset of symptoms was June 28, 2018 at 07:30. Risk Assessment: Do you want to hurt yourself or someone else? Patient reports no desire to harm self or others. Initial Sepsis Screen: Does the patient meet any 2 criteria? No. Patient's initial sepsis screen is negative. Does the patient have a suspected source of infection? No. Patient's initial sepsis screen is negative. Care prior to arrival: None. 10:33 Method Of Arrival: Ambulatory [facility] 10:33 Acuity: ALISON 3 jl7 Triage Assessment: 10:49 General: Appears uncomfortable, cachectic, Behavior is cooperative, appropriate for ls4 age, flat. Pain: Complains of pain in lumbar area and right low back. GI: Reports nausea, vomiting, since 0700. 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 - Social history:: Smoking status: Patient uses tobacco products, smokes one pack cigarettes per day. Patient/guardian denies using alcohol, street drugs, The patient lives with family. - Ebola Screening: : No symptoms or risks identified at this time. - Family history:: not pertinent, pertinent for. - Hospitalizations: : No recent hospitalization is reported. Screenin:46 Abuse screen: Denies threats or abuse. Nutritional screening: No deficits noted. ls4 Tuberculosis screening: No symptoms or risk factors identified. 14:20 Fall Risk None identified. ls4 Assessment: 10:51 GI: Abdomen is flat, Bowel sounds present X 4 quads. Reports vomiting. Musculoskeletal: ls4 Circulation, motion, and sensation intact. Capillary refill < 3 seconds, Range of motion: intact in all extremities. 11:54 Reassessment: Patient appears in no apparent distress at this time. No changes from ls4 previously documented assessment. 13:10 Reassessment: Patient and/or family updated on plan of care and expected duration. Pain ls4 level reassessed. Patient states symptoms have improved. 14:21 Reassessment: Patient and/or family updated on plan of care and expected duration. Pain ls4 level reassessed. Patient states feeling better. Patient states symptoms have improved. Vital Signs: 10:36 BP 117 / 88; Pulse 88; Resp 18 S; Temp 97.6(O); Pulse Ox 100% on R/A; Weight 42.64 kg jl7 (R); Height 5 ft. 2 in. (157.48 cm) (R); Pain 7/10; 11:40 BP 114 / 70; Pulse 84; Resp 16; Pulse Ox 99% ; Pain 5/10; ls4 12:30 BP 109 / 64; Pulse 73; Resp 16; Pulse Ox 99% ; ls4 14:02 BP 102 / 61; Pulse 74; Resp 16; Pulse Ox 99% on R/A; Pain 3/10; ls4 10:36 Body Mass Index 17.19 (42.64 kg, 157.48 cm) jl7 ED Course: 10:24 Patient arrived in ED. mr 10:25 None, None is Private Physician. mr 10:36 Triage completed. jl7 10:36 Arm band placed on right wrist. jl7 10:40 Ryan Mcgarry MD is Attending Physician. ma2 10:44 Karen Granda, NAEEM is Primary Nurse. ls4 10:46 Patient has correct armband on for positive identification. Bed in low position. Call ls4 light in reach. Side rails up X2. 10:46 No provider procedures requiring assistance completed. ls4 10:58 Urine collected: clean catch specimen, cloudy, doris colored. jb1 11:48 Patient moved to NE. kw1 11:53 Basic Metabolic Panel Sent. ls4 11:53 CBC with Diff Sent. ls4 11:54 Urine --Ancillary (enter results) Sent. ls4 11:54 Urine Dipstick--Ancillary (enter results) Sent. ls4 11:54 Lipase Sent. ls4 11:54 Hepatic Function Sent. ls4 11:54 Creatinine for Radiology Sent. ls4 14:20 IV discontinued, intact, bleeding controlled, No redness/swelling at site. Pressure ls4 dressing applied. Administered Medications: 11:53 Drug: NS 0.9% 1000 ml Route: IV; Rate: 1 bolus; Site: right antecubital; ls4 13:22 Follow up: IV Status: Completed infusion; IV Intake: 1000ml ls4 11:53 Drug: Rocephin 1 grams Route: IV; Rate: 1 calculated rate; Site: right antecubital; ls4 12:03 Follow up: IV Status: Completed infusion; IV Intake: 10ml ls4 11:53 Drug: Flagyl 500 mg Volume: 100 ml; Route: IVPB; Rate: 200 ml/hr; Infused Over: 30 ls4 mins; Site: right antecubital; 12:40 Follow up: IV Status: Completed infusion; IV Intake: 50ml ls4 11:53 Drug: Zofran 4 mg Route: IVP; Site: right antecubital; ls4 12:32 Follow up: Response: No adverse reaction ls4 Intake: 12:03 IV: 10ml; Total: 10ml. ls4 12:40 IV: 50ml; Total: 60ml. ls4 13:22 IV: 1000ml; Total: 1060ml. ls4 Outcome: 13:31 Discharge ordered by . lang2 14:20 Discharged to home ambulatory, with family. ls4 14:20 Condition: stable 14:20 Discharge instructions given to patient, Instructed on discharge instructions, follow up and referral plans. no drinking with medication, no driving heavy equipment, medication usage, safety practices, Demonstrated understanding of instructions, follow-up care, medications, Prescriptions given X 2. 14:22 Patient left the ED. ls4 Signatures: Thony Arenas1 FitzpatrickHolli mr Do Mendieta RN RN Renetta Estrada1 Ryan Mcgarry MD MD ma2 Stewart, Lisa, RN RN ls4 Corrections: (The following items were deleted from the chart) 13:21 12:30 IV Status: Completed infusion; IV Intake: 50ml ls4 ls4
[2018-06-28 14:35] VITALS: TEMP 97.6
[2018-06-28 14:36] VITALS: O2SAT 99
[2018-06-28 14:39] VITALS: BP 102/61
== END 2018-06-28 14:22 | disposition home or self-care (01) ==
LOC: ER 10:20
DX: N11.1 Chronic obstructive pyelonephritis (principal); F17.210 Nicotine dependence, cigarettes, uncomplicated
CPT/HCPCS: 36415; 74176; 76377; 80048; 80076; 81003; 81025; 83690; 85025; J0696; J2405; J7030

== ENCOUNTER 2019-03-06 11:52 | Emergency (ER) | payer BC ==
--- OUTSIDE RECORDS SUMMARY | 2019-03-06 12:09 | XMS REPORT | Clinical Summary ---
:1970 Author Organization [facility] Address [address] [place] [address] Care Team Providers Name Role Phone Unavailable Primary Care Provider Unavailable Allergies No Known Allergies Medications Medication Sig Dispensed Refills Start Date End Date Status Missing or . 0 Active Non-Formulary Medication tamsulosin (FLOMAX) Take 1 30 capsule 0 [...] 8 capsule mg total) by mouth daily. acetaminophen-codeine Take 1 tablet 30 tablet 0 06/22/2018 (TYLENOL #3) 300-30 by mouth 8 mg per tablet every 4 (four) hours as needed for Pain for up to 10 days. Max Daily Amount: 6 tablets metroNIDAZOLE Take 1 tablet 30 tablet 0 06/22/2018 (FLAGYL) 500 MG (500 mg 8 tablet total) by mouth 3 (three) times daily for 10 days. phenazopyridine Take 1 tablet 10 tablet 0 [...] bacteria; Postprocedural hypotension 06/15/2018 Hospital Encounter Pre-Admission Resource, Oqmt Testing Preadmit Phone after 03/05/2018 Social History Tobacco Use Types Packs/Day Years [...] Taken Blood Pressure 104/66 06/22/2018 4:00 PM L D RN Pulse 63 06/22/2018 4:00 PM L D RN Temperature 35.8 C (96.4 F) 06/22/2018 11:00 AM L D RN Respiratory Rate 17 06/22/2018 4:00 PM L D RN Oxygen Saturation 97% 06/22/2018 4:00 PM L D RN Inhaled Oxygen Concentration - - Weight 42.6 kg (94 lb) 06/16/2018 9:39 PM L D RN Height 157.5 cm (5' 2") 06/16/2018 9:39 PM L D RN Body Mass Index 17.19 06/16/2018 9:39 PM L D RN Plan of Treatment Not on file Implants Implanted Type Area Micromatic Hone Operator Device Shelf Model / Identifier Expiration Serial / Date Lot Set Stent Injection 6x26cm [id number] - [id number] Uro Stent Right: [place] 02/06/2020 [id number] / Implanted: Qty: 1 on 06/16/2018 by Colton Dang MD [employer]: ONCOLOGY / [id number] Procedures Procedure Name Priority Date/Time Associated Comments Diagnosis RHYTHM STRIP - SCAN 06/24/2018 2:00 PM L D RN CBC W/PLT COUNT & AUTO Routine 06/22/2018 5:43 Results for this DIFFERENTIAL AM L D RN procedure are in the results section. BASIC METABOLIC PANEL Routine 06/22/2018 5:43 Results for this (7) AM L D RN procedure are in the results section. CBC W/PLT COUNT & AUTO Routine 06/22/2018 5:43 Results for this DIFFERENTIAL AM L D RN procedure are in the results section. (CELLAVISION MANUAL Routine 06/21/2018 6:54 Results for this DIFF) AM L D RN procedure are in the results section. CBC W/PLT COUNT & AUTO Routine 06/21/2018 6:54 Results for this DIFFERENTIAL AM L D RN procedure are in the results section. BASIC METABOLIC PANEL Routine 06/21/2018 6:54 Results for this (7) AM L D RN procedure are in the results section. CBC W/PLT COUNT & AUTO Routine 06/21/2018 6:54 Results for this DIFFERENTIAL AM L D RN procedure are in the results section. COMPREHENSIVE Routine 06/20/2018 9:10 Results for this METABOLIC PANEL PM L D RN procedure are in the results section. CBC (HEMOGRAM ONLY) Routine 06/19/2018 4:59 Results for this AM L D RN procedure are in the results section. BASIC METABOLIC PANEL Routine 06/19/2018 4:59 Results for this (7) AM L D RN procedure are in the results section. CBC (HEMOGRAM ONLY) Routine 06/18/2018 3:36 Results for this AM L D RN procedure are in the results section. BASIC METABOLIC PANEL Routine 06/18/2018 3:36 Results for this (7) AM L D RN procedure are in the results section. TRANSFUSION SERVICE 06/17/2018 5:50 REPORT - SCAN PM L D RN LACTIC ACID, ARTERIAL STAT 06/17/2018 4:19 Results for this PM L D RN procedure are in the results section. ECG 12-LEAD Routine 06/17/2018 2:58 PM L D RN Procedure Note - Interface, External Ris In - 06/17/2018 3:01 PM L D RN Ventricular Rate 78 BPM Atrial Rate 78 BPM P-R Interval 112 ms QRS Duration 84 ms Q-T Interval 380 ms QTC Calculation(Bazett) 433 ms P [place]el[place] 73 degrees R [place] 71 degrees T [place] 67 degrees Normal sinus rhythm Normal ECG When compared with ECG of 17-JUN-2018 09:04, No significant change was found ECG 12-LEAD STAT 06/17/2018 2:58 PM Results for this L D RN procedure are in the results section. URINE CULTURE Routine 06/17/2018 1:29 PM Results for this L D RN procedure are in the results section. URINALYSIS W/ REFLEX Routine 06/17/2018 1:28 PM Results for this URINE CULTURE L D RN procedure are in the results section. CT ABDOMEN/PELVIS Routine 06/17/2018 10:04 AM Results for this WITHOUT IV CONTRAST L D RN procedure are in the results section. (CELLAVISION MANUAL Routine 06/17/2018 9:16 AM Results for this DIFF) L D RN procedure are in the results section. CBC W/PLT COUNT & AUTO Routine 06/17/2018 9:16 AM Results for this DIFFERENTIAL L D RN procedure are in the results section. CBC W/PLT COUNT & AUTO Routine 06/17/2018 9:16 AM Results for this DIFFERENTIAL L D RN procedure are in the results section. TROPONIN I Routine 06/17/2018 9:16 AM Results for this L D RN procedure are in the results section. CREATINE KINASE (CK), STAT 06/17/2018 9:15 AM Results for this TOTAL AND MB L D RN procedure are in the results section. BLOOD CULTURE Routine 06/17/2018 9:15 AM Results for this IDENTIFICATION PANEL L D RN procedure are in the results section. BLOOD CULTURE STAT 06/17/2018 9:15 AM Results for this L D RN procedure are in the results section. POCT-LACTIC ACID, Routine 06/17/2018 9:14 AM Results for this VENOUS L D RN procedure are in the results section. ECG 12-LEAD STAT 06/17/2018 9:04 AM Results for this L D RN procedure are in the results section. CBC (HEMOGRAM ONLY) Routine 06/17/2018 4:27 AM Results for this L D RN procedure are in the results section. BASIC METABOLIC PANEL Routine 06/17/2018 4:27 AM Results for this (7) L D RN procedure are in the results section. CBC W/PLT COUNT & AUTO Routine 06/16/2018 9:00 PM Results for this DIFFERENTIAL L D RN procedure are in the results section. BASIC METABOLIC PANEL Routine 06/16/2018 9:00 PM Results for this (7) L D RN procedure are in the results section. CBC W/PLT COUNT & AUTO Routine 06/16/2018 9:00 PM Results for this DIFFERENTIAL L D RN procedure are in the results section. XR CHEST 1 VIEW STAT 06/16/2018 8:00 PM Results for this PORTABLE/BEDSIDE L D RN procedure are in the results section. BASIC METABOLIC PANEL STAT 06/16/2018 6:23 PM Results for this (7) L D RN procedure are in the results section. HEMOGLOBIN AND STAT 06/16/2018 6:23 PM Results for this HEMATOCRIT L D RN procedure are in the results section. XR CHEST PA OR AP 1 Routine 06/16/2018 5:50 PM Results for this VIEW IN DEPT. L D RN procedure are in the results section. FL CUTTER AND PASTER PRESS CLIPPINGS IN OR 30 Routine 06/16/2018 5:37 PM Results for this MINUTE INCREMENTS L D RN procedure are in the results section. STONE ANALYSIS Routine 06/16/2018 5:05 PM Results for this L D RN procedure are in the results section. PROCEDURE W/ C-ARM 06/16/2018 12:30 PM Nephrolithiasis, L D RN uric acid Retained ureteral stent Special Needs (PRONE POSITION, 12 BAHRAINI MINI NEPHROSCOPE, 4 BAHRAINI SHOCK PULSE PROBE, HOLMIUM LASER, C-ARM) NEPHROSTOLITHOTOMY,PERCUTANEOUS MINI 06/16/2018 12:30 Nephrolithiasis, uric (MINI PCNL) PM L D RN acid Retained ureteral stent Special Needs (PRONE POSITION, 12 BAHRAINI MINI NEPHROSCOPE, 4 BAHRAINI SHOCK PULSE PROBE, HOLMIUM LASER, C-ARM) CYSTOSCOPY,LITHOLAPAXY W/ LASER 06/16/2018 12:30 PM Nephrolithiasis, uric acid LITHOTRIPSY L D RN Retained ureteral stent Special Needs (PRONE POSITION, 12 BAHRAINI MINI NEPHROSCOPE, 4 BAHRAINI SHOCK PULSE PROBE, HOLMIUM LASER, C-ARM) POCT , URINE Routine 06/16/2018 11:07 AM L D RN TYPE AND SCREEN, AUTOMATED Routine 06/16/2018 11:05 AM L D RN after 03/05/2018 Results RHYTHM STRIP - SCAN (06/24/2018 2:00 PM L D RN) Narrative Performed At CBC with platelet count + automated diff (06/22/2018 5:43 AM L D RN)Only the most recent of4 resultswithin the time period is included. WBC 7.7 3.5 - 10.5 K/L [facility] RBC 4.82 3.93 - 5.22 M/L [facility] Hemoglobin 15.8 (H) 11.2 - 15.7 GM/DL [facility] Hematocrit 47.6 (H) 34.1 - 44.9 % [facility] MCV 98.8 (H) 79.4 - 94.8 fL [facility] MCH 32.8 (H) 25.6 - 32.2 pg [facility] MCHC 33.2 32.2 - 35.5 GM/DL [facility] RDW 14.7 (H) 11.7 - 14.4 % [facility] Platelets 144 (L) 150 - 450 K/CU MM [facility] MPV 12.5 (H) 9.4 - 12.3 fL [facility] nRBC 0 0 - 0 /100 WBC [facility] % Neutros 51 % [facility] % Lymphs 28 % [facility] % Monos 16 % [facility] % Eos 3 % [facility] % Baso 2 % [facility] # Neutros 3.93 1.56 - 6.13 K/L [facility] # Lymphs 2.14 1.18 - 3.74 K/L [facility] # Monos 1.22 (H) 0.24 - 0.36 K/L [facility] # Eos 0.22 0.04 - 0.36 K/L [facility] # Baso 0.13 (H) 0.01 - 0.08 K/L [facility] Immature Granulocytes-Relative 1 0 - 1 % [facility] Specimen Blood Performing Organization Address City/State/Zipcode Phone Number [facility] [address] [place] [address] [phone] CENTER Basic Metabolic Panel (06/22/2018 5:43 AM L D RN)Only the most recent of7 resultswithin the time period is included. Sodium 135 (L) 136 - 145 meq/L [facility] Potassium 3.4 (L) 3.5 - 5.1 meq/L [facility] Chloride 104 98 - 107 meq/L [facility] CO2 26 22 - 29 meq/L [facility] BUN 6 (L) 7 - 21 mg/dL [facility] Creatinine 0.53 (L) 0.57 - 1.25 mg/dL [facility] Glucose 97 70 - 105 mg/dL [facility] Calcium 8.6 8.4 - 10.2 mg/dL [facility] EGFR 124Comment: ESTIMATED GFR IS mL/min/1.73 sq m [facility] NOT ACCURATE CREATININE [facility] CLEARANCE IN PREDICTING GLOMERULAR FILTRATION RATE. ESTIMATED GFR IS NOT APPLICABLE FOR DIALYSIS PATIENTS. Specimen Blood Performing Organization Address City/State/Zipcode Phone Number [address] [address] CENTER Manual Differential (06/21/2018 6:54 AM L D RN)Only the most recent of2 resultswithin the time period is included. % Neutros 68 % [facility] % Lymphs 11 % [facility] % Monos 9 % [facility] % Eos 1 % [facility] % Baso 2 % [facility] % Bands 8 0 - 10 % [facility] % Atypical Lymphs 1 (H) 0 - 0 % [facility] # Neutros 8.57 (H) 1.56 - 6.13 K/ul [facility] # Lymphs 1.39 1.18 - 3.74 K/ul [facility] # Monos 1.13 (H) 0.24 - 0.36 K/uL [facility] # Eos 0.13 0.04 - 0.36 K/uL [facility] # Baso 0.25 (H) 0.01 - 0.08 K/uL [facility] # Bands 1.01 (H) 0.00 - 0.80 K/uL [facility] # Atypical Lymphs 0.13 (H) 0.00 - 0.00 K/uL [facility] Total Counted 100 [facility] WBC Morphology Normal [facility] Platelet Morphology Normal [facility] Anisocytosis 1+ few [facility] Macrocytes 1+ few [facility] Poikilocytes 1+ few [facility] Artifact Present [facility] Platelet Conc Decreased [facility] Specimen Blood Narrative Performed At Received comment: [facility] User comments: Slide comments: Performing Organization Address City/State/Zipcode Phone Number [facility] [address] [place] [address] CENTER Comprehensive metabolic panel (06/20/2018 9:10 PM L D RN) Protein, Total 5.9 (L) 6.0 - 8.3 gm/dL [facility] Albumin 2.9 (L) 3.5 - 5.0 g/dL [facility] Alkaline Phosphatase 113 40 - 150 U/L [facility] Total Bilirubin 0.5 0.2 - 1.2 mg/dL [facility] Sodium 135 (L) 136 - 145 meq/L [facility] Potassium 3.5 3.5 - 5.1 meq/L [facility] Chloride 102 98 - 107 meq/L [facility] CO2 26 22 - 29 meq/L [facility] BUN 5 (L) 7 - 21 mg/dL [facility] Creatinine 0.58 0.57 - 1.25 mg/dL [facility] Glucose 113 (H) 70 - 105 mg/dL [facility] Calcium 8.9 8.4 - 10.2 mg/dL [facility] AST 23 5 - 34 U/L [facility] ALT 26 6 - 55 U/L [facility] EGFR 111Comment: ESTIMATED mL/min/1.73 sq m [facility] GFR IS NOT ACCURATE [facility] CREATININE CLEARANCE IN PREDICTING GLOMERULAR FILTRATION RATE. ESTIMATED GFR IS NOT APPLICABLE FOR DIALYSIS PATIENTS. Specimen Blood Performing Organization Address City/State/Zipcode Phone Number [facility] [address] [place] [address] CENTER CBC (Hemogram only) (06/19/2018 4:59 AM L D RN)Only the most recent of3 resultswithin the time period is included. WBC 11.4 (H) 3.5 - 10.5 K/L [facility] RBC 4.26 3.93 - 5.22 M/L [facility] Hemoglobin 14.2 11.2 - 15.7 GM/DL [facility] Hematocrit 43.7 34.1 - 44.9 % [facility] MCV 102.6 (H) 79.4 - 94.8 fL [facility] MCH 33.3 (H) 25.6 - 32.2 pg [facility] MCHC 32.5 32.2 - 35.5 GM/DL [facility] RDW 15.2 (H) 11.7 - 14.4 % [facility] Platelets 88 (L) 150 - 450 K/CU MM [facility] MPV 12.1 9.4 - 12.3 fL [facility] nRBC 0 0 - 0 /100 WBC [facility] Specimen Blood Performing Organization Address City/[facility] Phone Number [facility] [address] [place] [address] MOBILE TRANSFUSION SERVICE REPORT - SCAN (06/17/2018 5:50 PM L D RN) Narrative Performed At Lactic acid, arterial, whole blood (06/17/2018 4:19 PM L D RN) Lactate, Art 1.5Comment: Specimen 0.5 - 2.2 mmol/L [facility] slightly hemolyzed [facility] Specimen Blood, Arterial Performing Organization Address [facility] [place] Phone Number [facility] [address] [place] [address] [phone] MOBILE ECG 12 lead (06/17/2018 2:58 PM L D RN)Only the most recent of2 resultswithin the time period is included. Specimen Narrative Performed At Ventricular Rate 78 BPM [facility] Atrial Rate 78 BPM P-R Interval 112 ms QRS Duration 84 ms Q-T Interval 380 ms QTC Calculation(Bazett) 433 ms P [place] 73 degrees R [place] 71 degrees T [place] 67 degrees Normal sinus rhythm Normal ECG When compared with ECG of 17-JUN-2018 09:04, No significant change was found Confirmed by MD ALCALA JOSEPH P ([id number]) on 06/17/2018 5:01:47 PM Procedure Note Interface, External Ris In - 06/17/2018 5:01 PM L D RN Ventricular Rate 78 BPM Atrial Rate 78 BPM P-R Interval 112 ms QRS Duration 84 ms Q-T Interval 380 ms QTC Calculation(Bazett) 433 ms P [place] 73 degrees R [place] 71 degrees T [place] 67 degrees Normal sinus rhythm Normal ECG When compared with ECG of 17-JUN-2018 09:04, No significant change was found Confirmed by MD ALCALA JOSEPH P ([id number]) on 06/17/2018 5:01:47 PM Performing Organization Address City/State/Zipcode Phone Number [facility] Urine culture (06/17/2018 1:29 PM L D RN) Result No growth [facility] Specimen Urine Performing Organization Address City/[facility]/[place]code [place] [address] CENTER Urinalysis w/Microscopic + Reflex to Culture (06/17/2018 1:28 PM L D RN) Color, UA Yellow [facility] Clarity, UA Clear [facility] Specific [place], UA 1.006 1.001 - 1.035 [facility] pH, UA 6.0 5.0 - 8.0 [facility] Protein, UA 10 mg/dL (A) Negative [facility] Glucose, UA Negative Negative [facility] Ketones, UA Negative Negative [facility] Bilirubin, UA Negative Negative [facility] Blood, UA Large (A) Negative [facility] Nitrite, UA Negative Negative [facility] Leukocytes, UA Large (A) Negative [facility] Urobilinogen, UA 0.2 0.2 - 1.0 mg/dL [facility] RBC, UA 66 /HPF [facility] WBC, UA 57 /HPF [facility] Bacteria, UA Occasional [facility] Mucus Rare [facility] Squam Epithel, UA 2 /HPF [facility] Specimen Source [facility] Specimen Urine Performing Organization Address City/State/Zipcode Phone Number [facility] [address] [place] [address] abdomen/pelvis without iv contrast (06/17/2018 10:04 AM L D RN) Specimen Narrative Performed At FINAL REPORT [employer] CT scan of the abdomen and pelvis. [...] MD Report Verified Date/Time:06/17/2018 10:24:20 Reading Location: [facility] [id number] Ortho Consult Reading Room Procedure Note Interface, External Ris In - 06/17/2018 10:26 AM L D RN FINAL REPORT CT scan of the abdomen [...] Report Verified Date/Time: 06/17/2018 10:24:20 Reading Location: [address] Ortho Consult Reading Room Performing Organization Address City/[facility] Phone Number [facility] Troponin I (06/17/2018 9:16 AM L D RN) Troponin I 0.28 () 0.00 - 0.03 ng/mL [facility] Specimen Blood Narrative Performed At Troponin I (TnI) levels must be interpreted [facility] in the context of the [...] tachyarrhythmia. Performing Organization Address City/State/Zipcode Phone Number [address] [address] CENTER Blood Culture Panel(Appetas) (06/17/2018 9:15 AM L D RN) [place] MONOCYTOGENES Not detected Not detected [facility] STAPHYLOCOCCUS Not detected Not detected [facility] STAPHYLOCOCCUS AUREUS Not detected Not detected [facility] Streptococcus Not detected Not detected [facility] STREPTOCOCCUS AGALACTIAE (GROUP B) Not detected Not detected [facility] STREPTOCOCCUS PNEUMONIAE Not detected Not detected [facility] Streptococcus pyogenes (Group A) Not detected Not detected [facility] ACINETOBACTER BAUMANNII Not detected Not detected [facility] HAEMOPHILUS INFLUENZAE Not detected Not detected [facility] NEISSERIA MENINGITIDIS Not detected Not detected [facility] ENTEROBACTERIACEAE Not detected Not detected [facility] ENTEROBACTER CLOACOE COMPLEX Not detected Not detected [facility] KLEBSIELLA OXYTOCA Not detected Not detected [facility] KLEBSIELLA PNEUMONIAE Not detected Not detected [facility] PROTEUS Not detected Not detected [facility] SERRATIA MARCESCENS Not detected Not detected [facility] AMRIT ALBICANS Not detected Not detected [facility] AMRIT GLABRATA Not detected Not detected [facility] AMRIT KRUSEI Not detected Not detected [facility] AMRIT PARAPSILOSIS Not detected Not detected [facility] AMRIT TROPICALIS Not detected Not detected [facility] ESCHERICHIA COLI Not detected Not detected [facility] METHICILLIN-RESISTANCE GENE Not detected [facility] VANCOMYCIN-RESISTANCE GENE Not detected [facility] CARBAPENEM-RESISTANCE GENE Not detected [facility] ENTEROCOCCUS Not detected Not detected [facility] PSEUDOMONAS AERUGINOSA Not detected Not detected [facility] Specimen Blood Narrative Performed At Other bacteria and resistance markers not [facility] targeted by this PCR panel cannot be excluded; therefore clinical correlation and follow up of serology, culture results, and other molecular studies is required. The results are not intended to be used as the sole means for clinical diagnosis or patient management decisions. This sample was tested at the [facility] Molecular Diagnostics Laboratory using the J[employer]I MIND Blood Culture ID Panel. It is FDA cleared and has been verified and approved by the [facility] Molecular Diagnostics Laboratory for clinical use. This laboratory is CLIA-certified and [employer] (CAP)-accredited to perform high complexity testing. Performing Organization Address City/[facility]/Zipcode Phone Number [address] [address] MOBILE Blood culture (06/17/2018 9:15 AM L D RN) Result From Anaerobic Bottle Only Veillonella species (A) [facility] Comment: MEDICAL CENTER Identification and susceptibility performed by: [facility], [address] [place] [id number] Gram Stain Result From anaerobic bottle only: [facility] gram positive cocci in [facility] CENTER Specimen Blood Organism Antibiotic Method Susceptibility Veillonella species Penicillin G 12: Resistant Veillonella species Clindamycin 0.25: Susceptible Veillonella species Metronidazole 4: Susceptible Veillonella species Amoxicillin + Clavulanate 3.0: Susceptible Veillonella species Meropenem 0.25: Susceptible Performing Organization Address City/[facility] [place] Phone Number [address] [address] MOBILE Creatine Kinase (CK), Total and MB (06/17/2018 9:15 AM L D RN) Total CK 35 29 - 200 U/L [facility] CK-MB 1.3 0.0 - 6.6 ng/mL [facility] MB Relative Index 3.7 % [facility] Specimen Blood Narrative Performed At CK-MB Reference Range: [facility] <6.7Normal 6.7-10.0Borderline >10.0 Abnormal Performing Organization Address City/State/Zipcode Phone Number [address] [phone] CENTER POC-Lactic Acid, Venous (06/17/2018 9:14 AM L D RN) POC-Lactic Acid, Venous 3.4 (H)Comment: 0.9 - 1.7 mmol/L [facility] TESTED AT [address] [address] Specimen Blood Performing Organization Address [facility] Phone Number [address] [phone] MOBILE XR chest 1 view portable / bedside (06/16/2018 8:00 PM L D RN) Specimen Narrative Performed At FINAL REPORT [employer] EXAMINATION: AP PORTABLE CHEST RADIOGRAPH CLINICAL INDICATION: [...] MD Report Verified Date/Time:06/16/2018 20:26:41 Reading Location: [address] Reading Room Procedure Note Interface, External Ris In - 06/16/2018 8:28 PM L D RN FINAL REPORT EXAMINATION: AP PORTABLE CHEST RADIOGRAPH [...] Report Verified Date/Time: 06/16/2018 20:26:41 Reading Location: [address] Reading Room Performing Organization Address City/State/Zipcode Phone Number [employer] Hemoglobin and hematocrit (06/16/2018 6:23 PM L D RN) Hemoglobin 17.5 (H) 11.2 - 15.7 GM/DL [facility] Hematocrit 55.5 (H) 34.1 - 44.9 % [facility] Specimen Blood Performing Organization Address City/[facility]/Zipcode Phone Number [address] [address] CENTER XR chest PA or AP 1 view in dept (06/16/2018 5:50 PM L D RN) Specimen Narrative Performed At Addendum Begins [facility] REPORT STATUS:A Addendum: Results discussed with Dr. Padilla from urology at 1910 hours. Signed: Tegan Aden MD Report Verified Date/Time:06/16/2018 19:12:25 Reading Location: [address] Reading Room Addendum Ends FINAL REPORT [...] MD Report Verified Date/Time:06/16/2018 19:07:52 Reading Location: [address] Room Procedure Note Interface, External Ris In - 06/16/2018 7:14 PM L D RN Addendum Begins REPORT STATUS:A Addendum: Results discussed with Dr. Padilla from urology at 1910 hours. Signed: Tegan Aden MD Report Verified Date/Time: 06/16/2018 19:12:25 Reading Location: [address] Reading Room Addendum Ends FINAL REPORT [...] Report Verified Date/Time: 06/16/2018 19:07:52 Reading Location: [address] Reading Room Performing Organization Address [facility] [place] Phone Number [facility] [place] radiopharmacist in or 30 minute increments (06/16/2018 5:37 PM L D RN) Specimen Narrative Performed At FLUOROSCOPIC UNIT UTILIZED-NO INTERPRETATION REQUESTED. GE RIS Procedure Note Interface, External Ris In - 06/21/2018 9:34 AM L D RN FLUOROSCOPIC UNIT UTILIZED-NO INTERPRETATION REQUESTED. Performing Organization Address [facility] Phone Number GE RIS STONE ANALYSIS (06/16/2018 5:05 PM L D RN) Stone Source [facility] [...] analytical performance characteristics have been determined by [facility] [place]. It has not been cleared or approved by the [place] Food and Drug Administration. This assay has been validated pursuant to the CLIA regulations and is used for clinical purposes. Specimen Calculus - Renal, Right Narrative Performed At Performing Lab [employer] [facility] [employer] Anastasia [place], [id number] [place] [phone] Betsey Hicks MD, PhD Performing Organization Address City/[facility] Phone Number [employer] [facility], [place] [address] [address] [place] [address] POCT , urine (06/16/2018 11:07 AM L D RN) Test Urine, POC Negative Control line present?, POC Yes Background clear?, POC Yes UPT Cassette Lot #, POC [id number] UPT Cassette Expiration Date, POC [id number] Specimen Type and screen, automated (06/16/2018 11:05 AM L D RN) ABO/RH AUTOMATED (BEAKER) A POSITIVE [facility] Ab Scrn NEGATIVE [facility] Specimen Blood Performing Organization Address City/State/Zipcode Phone Number [facility] [address] [place] [address] after 03/05/2018 Insurance Payer Benefit Plan / Subscriber ID Type Phone Address Group BLUE [employer]OSS/[employer]UE [employer] OS xxxxxxxxxxxx PPO [phone] [address] [place] [place] [address] (Gem) [place] [address] Advance Directives For more information, please contact:[facility] [place], [place] [phone] Code Status Date Activated Date Inactivated Comments Full Code 06/16/2018 10:08 PM This code status was determined by: Patient
--- OUTSIDE RECORDS SUMMARY | 2019-03-06 12:10 | XMS REPORT ---
:1970 [facility] Address [address] [place] [address] Care Team Providers Name Role Phone LINK, JONG NANCYRAFIA Unavailable Unavailable Problems This patient has no known problems. Allergies, Adverse Reactions, Alerts This patient has no known allergies or adverse reactions. Medications This patient has no known medications. Results Test Description Test Time Test Comments Text Results Atomic Results Result Comments BLOOD CULTURE 2018-07-04 15:03:00 Test Item Value Reference Range Comments CULTURE (BEAKER) VEILLONELLA From Anaerobic Bottle Only (test ukzs=5058) SPECIES Veillonella speciesIdentification and susceptibility performed by:[facility], [address] [place] [id number] Penicillin G (test Susceptible 0-0.5 code=3) , Resistant <0 or >.5 Clindamycin (test Susceptible 0-2 , code=10) Resistant <0 or >2 Metronidazole (test Susceptible 0-8 , code=56) Resistant <0 or >8 Amoxicillin + Clavulanate (test code=21) Meropenem (test code=34) GRAM STAIN RESULT From anaerobic (BEAKER) (test bottle only: gram qmgh=2194) positive cocci in pairs BASIC METABOLIC [id number] 07:13:00 Test Item Value Reference Range Comments SODIUM (BEAKER) (test 135 meq/L 136-145 riio=454) POTASSIUM (BEAKER) (test 3.4 meq/L 3.5-5.1 hpds=134) CHLORIDE (BEAKER) (test 104 meq/L 98-107 nucu=945) CO2 (BEAKER) (test 26 meq/L 22-29 nkjr=614) BLOOD UREA NITROGEN 6 mg/dL 7-21 (BEAKER) (test pqhc=183) CREATININE (BEAKER) (test 0.53 mg/dL 0.57-1.25 flxj=054) GLUCOSE RANDOM (BEAKER) 97 mg/dL 70-105 (test mqip=256) CALCIUM (BEAKER) (test 8.6 mg/dL 8.4-10.2 bjir=744) EGFR (BEAKER) (test 124 mL/min/1.73 sq m ESTIMATED GFR IS NOT cynb=9031) ACCURATE CREATININE CLEARANCE IN PREDICTING GLOMERULAR FILTRATION RATE. ESTIMATED GFR IS NOT APPLICABLE FOR DIALYSIS PATIENTS. CBC W/PLT COUNT & AUTO [id number] 06:40:00 Test Item Value Reference Range Comments WHITE BLOOD CELL COUNT (BEAKER) (test gyux=224) 7.7 K/ L 3.5-10.5 RED BLOOD CELL COUNT (BEAKER) (test vmjm=771) 4.82 M/ L 3.93-5.22 HEMOGLOBIN (BEAKER) (test btoa=558) 15.8 GM/DL 11.2-15.7 HEMATOCRIT (BEAKER) (test dnal=236) 47.6 % 34.1-44.9 MEAN CORPUSCULAR VOLUME (BEAKER) (test vasg=384) 98.8 fL 79.4-94.8 MEAN CORPUSCULAR HEMOGLOBIN (BEAKER) (test 32.8 pg 25.6-32.2 dgri=187) MEAN CORPUSCULAR HEMOGLOBIN CONC (BEAKER) (test 33.2 GM/DL 32.2-35.5 uxaq=243) RED CELL DISTRIBUTION WIDTH (BEAKER) (test 14.7 % 11.7-14.4 nwtk=037) PLATELET COUNT (BEAKER) (test bgvm=310) 144 K/CU MM 150-450 MEAN PLATELET VOLUME (BEAKER) (test wxxk=587) 12.5 fL 9.4-12.3 NUCLEATED RED BLOOD CELLS (BEAKER) (test 0 /100 WBC 0-0 daiu=360) NEUTROPHILS RELATIVE PERCENT (BEAKER) (test 51 % xesc=879) LYMPHOCYTES RELATIVE PERCENT (BEAKER) (test 28 % qabz=593) MONOCYTES RELATIVE PERCENT (BEAKER) (test 16 % ifit=432) EOSINOPHILS RELATIVE PERCENT (BEAKER) (test 3 % imyz=055) BASOPHILS RELATIVE PERCENT (BEAKER) (test 2 % xrbi=800) NEUTROPHILS ABSOLUTE COUNT (BEAKER) (test 3.93 K/ L 1.56-6.13 mfxe=355) LYMPHOCYTES ABSOLUTE COUNT (BEAKER) (test 2.14 K/ L 1.18-3.74 cjwc=686) MONOCYTES ABSOLUTE COUNT (BEAKER) (test 1.22 K/ L 0.24-0.36 ucgi=237) EOSINOPHILS ABSOLUTE COUNT (BEAKER) (test 0.22 K/ L 0.04-0.36 binm=027) BASOPHILS ABSOLUTE COUNT (BEAKER) (test 0.13 K/ L 0.01-0.08 wxri=226) IMMATURE GRANULOCYTES-RELATIVE PERCENT (BEAKER) 1 % 0-1 (test hqbp=9422) CBC W/PLT COUNT & AUTO [id number] 10:16:00 Test Item Value Reference Range Comments WHITE BLOOD CELL COUNT (BEAKER) (test hujg=549) 12.6 K/ L 3.5-10.5 RED BLOOD CELL COUNT (BEAKER) (test mrsp=955) 4.77 M/ L 3.93-5.22 HEMOGLOBIN (BEAKER) (test jryh=009) 16.2 GM/DL 11.2-15.7 HEMATOCRIT (BEAKER) (test kllk=857) 47.2 % 34.1-44.9 MEAN CORPUSCULAR VOLUME (BEAKER) (test wgxc=444) 99.0 fL 79.4-94.8 MEAN CORPUSCULAR HEMOGLOBIN (BEAKER) (test 34.0 pg 25.6-32.2 mqgq=578) MEAN CORPUSCULAR HEMOGLOBIN CONC (BEAKER) (test 34.3 GM/DL 32.2-35.5 vzjl=955) RED CELL DISTRIBUTION WIDTH (BEAKER) (test 14.6 % 11.7-14.4 gzru=491) PLATELET COUNT (BEAKER) (test yzlu=117) 118 K/CU MM 150-450 MEAN PLATELET VOLUME (BEAKER) (test nnbt=425) 11.9 fL 9.4-12.3 NUCLEATED RED BLOOD CELLS (BEAKER) (test 0 /100 WBC 0-0 gyre=151) (CELLAVISION MANUAL DIFF)2018-06-21 10:16:00 Test Item Value Reference Range Comments NEUTROPHILS - REL (CELLAVISION)(BEAKER) (test 68 % fqvp=3002) LYMPHOCYTES - REL (CELLAVISION)(BEAKER) (test 11 % eehc=6758) MONOCYTES - REL (CELLAVISION)(BEAKER) (test 9 % lcgx=8470) EOSINOPHILS - REL (CELLAVISION)(BEAKER) (test 1 % fuhr=9743) BASOPHILS - REL (CELLAVISION)(BEAKER) (test 2 % waqq=8283) BANDS - REL (CELLAVISION)(BEAKER) (test pjqb=3100) 8 % 0-10 ATYPICAL LYMPHOCYTES - REL (CELLAVISION)(BEAKER) 1 % 0-0 (test qjna=7534) NEUTROPHILS - ABS (CELLAVISION)(BEAKER) (test 8.57 K/ul 1.56-6.13 wsuj=5724) LYMPHOCYTES - ABS (CELLAVISION)(BEAKER) (test 1.39 K/ul 1.18-3.74 tykl=1503) MONOCYTES - ABS (CELLAVISION)(BEAKER) (test 1.13 K/uL 0.24-0.36 fwyg=4769) EOSINOPHILS - ABS (CELLAVISION)(BEAKER) (test 0.13 K/uL 0.04-0.36 xhcx=7130) BASOPHILS - ABS (CELLAVISION)(BEAKER) (test 0.25 K/uL 0.01-0.08 lulk=2314) BANDS - ABS (CELLAVISION)(BEAKER) (test xbfe=1323) 1.01 K/uL 0.00-0.80 ATYPICAL LYMPHOCYTES - ABS (CELLAVISION)(BEAKER) 0.13 K/uL 0.00-0.00 (test tbeu=5595) TOTAL COUNTED (BEAKER) (test pgqm=9594) 100 WBC MORPHOLOGY (BEAKER) (test nuyc=369) Normal PLT MORPHOLOGY (BEAKER) (test rdkf=527) Normal ANISOCYTOSIS (BEAKER) (test xmae=706) 1+ few MACROCYTES (BEAKER) (test rkdi=145) 1+ few POIKILOCYTES (BEAKER) (test lddr=987) 1+ few ARTIFACT (CELLAVISION)(BEAKER) (test onbt=1798) Present PLATELET CONCENTRATION (CELLAVISION)(BEAKER) (test Decreased buuo=2578) Received comment: User comments: 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 [facility] METABOLIC [id number] 07:28:00 Test Item Value Reference Range Comments SODIUM (BEAKER) (test 133 meq/L 136-145 jqvi=362) POTASSIUM (BEAKER) (test 3.7 meq/L 3.5-5.1 gzuh=963) CHLORIDE (BEAKER) (test 102 meq/L 98-107 igug=938) CO2 (BEAKER) (test 25 meq/L 22-29 kppp=426) BLOOD UREA NITROGEN 4 mg/dL 7-21 (BEAKER) (test ekns=146) CREATININE (BEAKER) (test 0.56 mg/dL 0.57-1.25 uafl=648) GLUCOSE RANDOM (BEAKER) 108 mg/dL 70-105 (test lrbp=063) CALCIUM (BEAKER) (test 8.8 mg/dL 8.4-10.2 zizh=346) EGFR (BEAKER) (test 116 mL/min/1.73 sq m ESTIMATED GFR IS NOT fcvz=9295) ACCURATE CREATININE CLEARANCE IN PREDICTING GLOMERULAR FILTRATION RATE. ESTIMATED GFR IS NOT APPLICABLE FOR DIALYSIS PATIENTS. COMPREHENSIVE METABOLIC [id number] 21:49:00 Test Item Value Reference Range Comments TOTAL PROTEIN (BEAKER) 5.9 gm/dL 6.0-8.3 (test lcgv=983) ALBUMIN (BEAKER) (test 2.9 g/dL 3.5-5.0 lnpz=0301) ALKALINE PHOSPHATASE 113 U/L 40-150 (BEAKER) (test mapr=737) BILIRUBIN TOTAL (BEAKER) 0.5 mg/dL 0.2-1.2 (test tsai=667) SODIUM (BEAKER) (test 135 meq/L 136-145 wapd=005) POTASSIUM (BEAKER) (test 3.5 meq/L 3.5-5.1 laop=076) CHLORIDE (BEAKER) (test 102 meq/L 98-107 foir=084) CO2 (BEAKER) (test 26 meq/L 22-29 evtw=218) BLOOD UREA NITROGEN 5 mg/dL 7-21 (BEAKER) (test paql=971) CREATININE (BEAKER) (test 0.58 mg/dL 0.57-1.25 kkwn=170) GLUCOSE RANDOM (BEAKER) 113 mg/dL 70-105 (test tmrq=290) CALCIUM (BEAKER) (test 8.9 mg/dL 8.4-10.2 lxkc=836) AST (SGOT) (BEAKER) (test 23 U/L 5-34 qtqs=488) ALT (SGPT) (BEAKER) (test 26 U/L 6-55 yepm=912) EGFR (BEAKER) (test 111 mL/min/1.73 sq ESTIMATED GFR IS NOT fiah=5277) m ACCURATE CREATININE CLEARANCE IN PREDICTING GLOMERULAR FILTRATION RATE. ESTIMATED GFR IS NOT APPLICABLE FOR DIALYSIS PATIENTS. URINE [id number] 06:28:00 Test Item Value Reference Range Comments CULTURE (BEAKER) (test olzr=3578) No growth BASIC METABOLIC [id number] 05:41:00 Test Item Value Reference Range Comments SODIUM (BEAKER) (test 134 meq/L 136-145 soyu=348) POTASSIUM (BEAKER) (test 3.5 meq/L 3.5-5.1 umqy=606) CHLORIDE (BEAKER) (test 107 meq/L 98-107 dsbl=470) CO2 (BEAKER) (test 24 meq/L 22-29 qhjh=931) BLOOD UREA NITROGEN 5 mg/dL 7-21 (BEAKER) (test tnwa=455) CREATININE (BEAKER) (test 0.55 mg/dL 0.57-1.25 qypf=664) GLUCOSE RANDOM (BEAKER) 83 mg/dL 70-105 (test junu=570) CALCIUM (BEAKER) (test 8.2 mg/dL 8.4-10.2 bulw=167) EGFR (BEAKER) (test 118 mL/min/1.73 sq m ESTIMATED GFR IS NOT ayug=9784) ACCURATE CREATININE CLEARANCE IN PREDICTING GLOMERULAR FILTRATION RATE. ESTIMATED GFR IS NOT APPLICABLE FOR DIALYSIS PATIENTS. CBC (HEMOGRAM ONLY)2018-06-19 05:19:00 Test Item Value Reference Range Comments WHITE BLOOD CELL COUNT (BEAKER) (test hkpu=968) 11.4 K/ L 3.5-10.5 RED BLOOD CELL COUNT (BEAKER) (test rzne=501) 4.26 M/ L 3.93-5.22 HEMOGLOBIN (BEAKER) (test brfq=622) 14.2 GM/DL 11.2-15.7 HEMATOCRIT (BEAKER) (test jxcc=912) 43.7 % 34.1-44.9 MEAN CORPUSCULAR VOLUME (BEAKER) (test hnpk=077) 102.6 fL 79.4-94.8 MEAN CORPUSCULAR HEMOGLOBIN (BEAKER) (test 33.3 pg 25.6-32.2 uxpa=830) MEAN CORPUSCULAR HEMOGLOBIN CONC (BEAKER) (test 32.5 GM/DL 32.2-35.5 vaau=764) RED CELL DISTRIBUTION WIDTH (BEAKER) (test 15.2 % 11.7-14.4 udsf=641) PLATELET COUNT (BEAKER) (test emka=474) 88 K/CU MM 150-450 MEAN PLATELET VOLUME (BEAKER) (test oaqi=149) 12.1 fL 9.4-12.3 NUCLEATED RED BLOOD CELLS (BEAKER) (test 0 /100 WBC 0-0 hlph=182) BLOOD CULTURE IDENTIFICATION [id number] 00:53:00 Test Item Value Reference Range Comments LISTERIA MONOCYTOGENES (test frns=[id number]) Not detected Not detected STAPHYLOCOCCUS (test zozv=8791006) Not detected Not detected STAPHYLOCOCCUS AUREUS (test nhgp=1781250) Not detected Not detected STREPTOCOCCUS (test bmhl=3945515) Not detected Not detected STREPTOCOCCUS AGALACTIAE (GROUP B) (test Not detected Not detected ntfg=2457143) STREPTOCOCCUS PNEUMONIAE (test lsil=7006635) Not detected Not detected STREPTOCOCCUS PYOGENES (GROUP A) (test Not detected Not detected tsry=5644496) ACINETOBACTER BAUMANNII (test xodb=9206153) Not detected Not detected HAEMOPHILUS INFLUENZAE (test yffe=0270448) Not detected Not detected NEISSERIA MENINGITIDIS (test mwjp=2107065) Not detected Not detected ENTEROBACTERIACEAE (test qwmn=8958094) Not detected Not detected ENTEROBACTER CLOACOE COMPLEX (test Not detected Not detected zrev=1742620) KLEBSIELLA OXYTOCA (test nkwp=1753136) Not detected Not detected KLEBSIELLA PNEUMONIAE (test cpsb=3171) Not detected Not detected PROTEUS (test qfhc=2142781) Not detected Not detected SERRATIA MARCESCENS (test kbhq=1528465) Not detected Not detected AMRIT ALBICANS (test ztei=8101041) Not detected Not detected AMRIT GLABRATA (test udvh=6174363) Not detected Not detected AMRIT KRUSEI (test cxre=7328903) Not detected Not detected AMRIT PARAPSILOSIS (test nnus=7460822) Not detected Not detected AMRIT TROPICALIS (test zehe=9054468) Not detected Not detected ESCHERICHIA COLI (test iggz=2483375) Not detected Not detected METHICILLIN-RESISTANCE GENE (test jabj=3941316) Not detected VANCOMYCIN-RESISTANCE GENE (test aqyx=4526587) Not detected CARBAPENEM-RESISTANCE GENE (test mecn=4528180) Not detected ENTEROCOCCUS-BEAKER (test qrgv=9564894) Not detected Not detected PSEUDOMONAS AERUGINOSA-BEAKER (test Not detected Not detected ffoz=1757840) Other bacteria and resistance markers not targeted by this PCR panel cannot be excluded; therefore clinical correlation and follow up of serology, culture results, and other molecular studies is required. The results are not intended to be used as the sole means for clinical diagnosis or patient management decisions. This sample was tested at the [facility] using the [employer]har[employer] Blood Culture ID Panel. It is FDA cleared and has been verified and approved by the [facility] for clinical use. This laboratory is CLIA-certified and College ofAmerican Pathologists (CAP)-accredited to perform high complexity testing.BASIC METABOLIC [id number] 06:14:00 Test Item Value Reference Range Comments SODIUM (BEAKER) (test 136 meq/L 136-145 llfc=769) POTASSIUM (BEAKER) (test 3.6 meq/L 3.5-5.1 rvpp=791) CHLORIDE (BEAKER) (test 110 meq/L 98-107 ywou=893) CO2 (BEAKER) (test 24 meq/L 22-29 dhqv=997) BLOOD UREA NITROGEN 7 mg/dL 7-21 (BEAKER) (test mkoi=592) CREATININE (BEAKER) (test 0.56 mg/dL 0.57-1.25 hubf=931) GLUCOSE RANDOM (BEAKER) 86 mg/dL 70-105 (test yvic=023) CALCIUM (BEAKER) (test 7.7 mg/dL 8.4-10.2 udou=611) EGFR (BEAKER) (test 116 mL/min/1.73 sq m ESTIMATED GFR IS NOT ldku=0975) ACCURATE CREATININE CLEARANCE IN PREDICTING GLOMERULAR FILTRATION RATE. ESTIMATED GFR IS NOT APPLICABLE FOR DIALYSIS PATIENTS. CBC (HEMOGRAM ONLY)2018-06-18 04:11:00 Test Item Value Reference Range Comments WHITE BLOOD CELL COUNT (BEAKER) (test dayu=741) 16.8 K/ L 3.5-10.5 RED BLOOD CELL COUNT (BEAKER) (test skyh=646) 4.20 M/ L 3.93-5.22 HEMOGLOBIN (BEAKER) (test dinc=266) 14.1 GM/DL 11.2-15.7 HEMATOCRIT (BEAKER) (test kekz=094) 43.5 % 34.1-44.9 MEAN CORPUSCULAR VOLUME (BEAKER) (test bizi=707) 103.6 fL 79.4-94.8 MEAN CORPUSCULAR HEMOGLOBIN (BEAKER) (test 33.6 pg 25.6-32.2 hiky=985) MEAN CORPUSCULAR HEMOGLOBIN CONC (BEAKER) (test 32.4 GM/DL 32.2-35.5 mlaj=041) RED CELL DISTRIBUTION WIDTH (BEAKER) (test 15.8 % 11.7-14.4 hojb=984) PLATELET COUNT (BEAKER) (test vpzw=154) 102 K/CU MM 150-450 MEAN PLATELET VOLUME (BEAKER) (test cfug=350) 12.1 fL 9.4-12.3 NUCLEATED RED BLOOD CELLS (BEAKER) (test 0 /100 WBC 0-0 dksj=990) LACTIC ACID, ARTERIAL, WHOLE [id number] 16:48:00 Test Item Value Reference Range Comments LACTATE BLOOD ARTERIAL (2) 1.5 mmol/L 0.5-2.2 Specimen slightly hemolyzed (BEAKER) (test tnto=1232) URINALYSIS W/ REFLEX URINE [id number] 14:41:00 Test Item Value Reference Range Comments COLOR (BEAKER) (test bvnz=369) Yellow CLARITY (BEAKER) (test dofw=482) Clear SPECIFIC GRAVITY UA (BEAKER) (test ckrr=969) 1.006 1.001-1.035 PH UA (BEAKER) (test dszj=695) 6.0 5.0-8.0 PROTEIN UA (BEAKER) (test ehnr=428) 10 mg/dL Negative GLUCOSE UA (BEAKER) (test nwuf=107) Negative Negative KETONES UA (BEAKER) (test vxex=966) Negative Negative BILIRUBIN UA (BEAKER) (test qrst=757) Negative Negative BLOOD UA (BEAKER) (test ahht=480) Large Negative NITRITE UA (BEAKER) (test eccl=658) Negative Negative LEUKOCYTE ESTERASE UA (BEAKER) (test xixn=769) Large Negative UROBILINOGEN UA (BEAKER) (test uxof=205) 0.2 mg/dL 0.2-1.0 RBC UA (BEAKER) (test nhvu=101) 66 /HPF WBC UA (BEAKER) (test xgto=265) 57 /HPF BACTERIA (BEAKER) (test vkub=479) Occasional MUCUS (BEAKER) (test uyav=4360) Rare SQUAMOUS EPITHELIAL (BEAKER) (test vedl=771) 2 /HPF SOURCE(BEAKER) (test pypp=1026) CBC W/PLT COUNT & AUTO [id number] 14:01:00 Test Item Value Reference Range Comments WHITE BLOOD CELL COUNT (BEAKER) (test wdrn=646) 24.4 K/ L 3.5-10.5 RED BLOOD CELL COUNT (BEAKER) (test fidd=125) 4.40 M/ L 3.93-5.22 HEMOGLOBIN (BEAKER) (test kqhk=180) 14.9 GM/DL 11.2-15.7 HEMATOCRIT (BEAKER) (test jpkj=518) 47.0 % 34.1-44.9 MEAN CORPUSCULAR VOLUME (BEAKER) (test boqx=117) 106.8 fL 79.4-94.8 MEAN CORPUSCULAR HEMOGLOBIN (BEAKER) (test 33.9 pg 25.6-32.2 ioca=704) MEAN CORPUSCULAR HEMOGLOBIN CONC (BEAKER) (test 31.7 GM/DL 32.2-35.5 aibl=530) RED CELL DISTRIBUTION WIDTH (BEAKER) (test 15.7 % 11.7-14.4 ufic=568) PLATELET COUNT (BEAKER) (test kyll=747) 117 K/CU MM 150-450 MEAN PLATELET VOLUME (BEAKER) (test vuvy=423) 11.4 fL 9.4-12.3 NUCLEATED RED BLOOD CELLS (BEAKER) (test 0 /100 WBC 0-0 tgwk=685) (CELLAVISION MANUAL DIFF)2018-06-17 14:01:00 Test Item Value Reference Range Comments NEUTROPHILS - REL (CELLAVISION)(BEAKER) (test 74 % xoyg=7517) LYMPHOCYTES - REL (CELLAVISION)(BEAKER) (test 3 % axmy=3955) BANDS - REL (CELLAVISION)(BEAKER) (test 23 % 0-10 pojv=3798) NEUTROPHILS - ABS (CELLAVISION)(BEAKER) (test 18.06 K/ul 1.56-6.13 nzbi=2840) LYMPHOCYTES - ABS (CELLAVISION)(BEAKER) (test 0.73 K/ul 1.18-3.74 kudj=5053) BANDS - ABS (CELLAVISION)(BEAKER) (test 5.61 K/uL 0.00-0.80 nzyf=9577) TOTAL COUNTED (BEAKER) (test rtoi=6940) 100 RBC MORPHOLOGY (BEAKER) (test nyln=674) Normal WBC MORPHOLOGY (BEAKER) (test tulo=817) Normal PLT MORPHOLOGY (BEAKER) (test avet=584) Normal ARTIFACT (CELLAVISION)(BEAKER) (test tbxd=2504) Present PLATELET CONCENTRATION (CELLAVISION)(BEAKER) Decreased (test vhbc=5795) Received comment: User comments: Slide comments:TROPONIN [id number] 13:38:00 Test Item Value Reference Range Comments TROPONIN I (BEAKER) (test xcgp=093) 0.28 ng/mL 0.00-0.03 Troponin I (TnI) levels [...] acidosis, acute neurological disease, and persistent tachyarrhythmia.CT, [id number] 10:24:00DO NOT GIVE ANY CONTRASTNO ORAL CONTRASTFINAL [...] Other findings as described above. Signed: Ganesh Santizoeport Verified Date/Time : 06/17/2018 10:24:20 Reading Location: [facility] [id number] [facility] Consult Reading Room CREATINE KINASE (CK), TOTAL AND [id number] 10:20:00 Test Item Value Reference Range Comments CREATINE KINASE TOTAL (BEAKER) (test uxyt=133) 35 U/L 29-200 CREATINE KINASE-MB (BEAKER) (test dlax=105) 1.3 ng/mL 0.0-6.6 CREATINE KINASE-MB INDEX (BEAKER) (test foqf=621) 3.7 % CK-MB Reference Range:<6.7 Normal6.7-10.0 Borderline>10.0 AbnormalPOCT-LACTIC ACID, [id number] 09:23:00 Test Item Value Reference Range Comments POC-LACTIC ACID, VENOUS 3.4 mmol/L 0.9-1.7 TESTED AT [facility] [address] [facility] (BEAKER) (test ofcl=5321) [facility] [address] BASIC METABOLIC [id number] 05:29:00 Test Item Value Reference Range Comments SODIUM (BEAKER) (test 134 meq/L 136-145 yxwu=255) POTASSIUM (BEAKER) (test 3.8 meq/L 3.5-5.1 zese=547) CHLORIDE (BEAKER) (test 109 meq/L 98-107 yqyo=640) CO2 (BEAKER) (test 18 meq/L 22-29 xxuu=017) BLOOD UREA NITROGEN 8 mg/dL 7-21 (BEAKER) (test abom=821) CREATININE (BEAKER) (test 0.67 mg/dL 0.57-1.25 dpqz=977) GLUCOSE RANDOM (BEAKER) 127 mg/dL 70-105 (test jjfb=922) CALCIUM (BEAKER) (test 7.2 mg/dL 8.4-10.2 eoxk=613) EGFR (BEAKER) (test 94 mL/min/1.73 sq m ESTIMATED GFR IS NOT dpwm=5346) ACCURATE CREATININE CLEARANCE IN PREDICTING GLOMERULAR FILTRATION RATE. ESTIMATED GFR IS NOT APPLICABLE FOR DIALYSIS PATIENTS. CBC (HEMOGRAM ONLY)2018-06-17 04:44:00 Test Item Value Reference Range Comments WHITE BLOOD CELL COUNT (BEAKER) (test tary=680) 21.0 K/ L 3.5-10.5 RED BLOOD CELL COUNT (BEAKER) (test xglm=570) 4.12 M/ L 3.93-5.22 HEMOGLOBIN (BEAKER) (test zevl=799) 14.0 GM/DL 11.2-15.7 HEMATOCRIT (BEAKER) (test ojjq=708) 43.3 % 34.1-44.9 MEAN CORPUSCULAR VOLUME (BEAKER) (test qtsk=415) 105.1 fL 79.4-94.8 MEAN CORPUSCULAR HEMOGLOBIN (BEAKER) (test 34.0 pg 25.6-32.2 hibw=725) MEAN CORPUSCULAR HEMOGLOBIN CONC (BEAKER) (test 32.3 GM/DL 32.2-35.5 otep=050) RED CELL DISTRIBUTION WIDTH (BEAKER) (test 15.5 % 11.7-14.4 ywsc=501) PLATELET COUNT (BEAKER) (test lloi=400) 103 K/CU MM 150-450 MEAN PLATELET VOLUME (BEAKER) (test uaoq=444) 10.9 fL 9.4-12.3 NUCLEATED RED BLOOD CELLS (BEAKER) (test 0 /100 WBC 0-0 iuuh=052) BASIC METABOLIC [id number] 21:41:00 Test Item Value Reference Range Comments SODIUM (BEAKER) (test 141 meq/L 136-145 zram=536) POTASSIUM (BEAKER) (test 3.4 meq/L 3.5-5.1 xrgh=671) CHLORIDE (BEAKER) (test 109 meq/L 98-107 pcry=739) CO2 (BEAKER) (test 23 meq/L 22-29 yplq=767) BLOOD UREA NITROGEN 8 mg/dL 7-21 (BEAKER) (test hgub=564) CREATININE (BEAKER) (test 0.68 mg/dL 0.57-1.25 znph=148) GLUCOSE RANDOM (BEAKER) 115 mg/dL 70-105 (test vqpc=517) CALCIUM (BEAKER) (test 7.6 mg/dL 8.4-10.2 tpvo=295) EGFR (BEAKER) (test 93 mL/min/1.73 sq m ESTIMATED GFR IS NOT pzar=0792) ACCURATE CREATININE CLEARANCE IN PREDICTING GLOMERULAR FILTRATION RATE. ESTIMATED GFR IS NOT APPLICABLE FOR DIALYSIS PATIENTS. CBC W/PLT COUNT & AUTO [id number] 21:13:00 Test Item Value Reference Range Comments WHITE BLOOD CELL COUNT (BEAKER) (test gxap=758) 9.2 K/ L 3.5-10.5 RED BLOOD CELL COUNT (BEAKER) (test wrwv=563) 4.49 M/ L 3.93-5.22 HEMOGLOBIN (BEAKER) (test cvod=783) 15.3 GM/DL 11.2-15.7 HEMATOCRIT (BEAKER) (test wqgb=046) 47.2 % 34.1-44.9 MEAN CORPUSCULAR VOLUME (BEAKER) (test uekd=121) 105.1 fL 79.4-94.8 MEAN CORPUSCULAR HEMOGLOBIN (BEAKER) (test 34.1 pg 25.6-32.2 sart=573) MEAN CORPUSCULAR HEMOGLOBIN CONC (BEAKER) (test 32.4 GM/DL 32.2-35.5 jlaq=576) RED CELL DISTRIBUTION WIDTH (BEAKER) (test 15.6 % 11.7-14.4 dtjo=871) PLATELET COUNT (BEAKER) (test zehj=228) 104 K/CU MM 150-450 MEAN PLATELET VOLUME (BEAKER) (test ggdz=217) 10.6 fL 9.4-12.3 NUCLEATED RED BLOOD CELLS (BEAKER) (test 0 /100 WBC 0-0 gdlp=912) NEUTROPHILS RELATIVE PERCENT (BEAKER) (test 98 % pxct=643) LYMPHOCYTES RELATIVE PERCENT (BEAKER) (test 1 % rzzn=891) MONOCYTES RELATIVE PERCENT (BEAKER) (test 0 % razb=431) EOSINOPHILS RELATIVE PERCENT (BEAKER) (test 0 % hgxg=477) BASOPHILS RELATIVE PERCENT (BEAKER) (test 0 % gwrk=507) NEUTROPHILS ABSOLUTE COUNT (BEAKER) (test 9.01 K/ L 1.56-6.13 zwea=155) LYMPHOCYTES ABSOLUTE COUNT (BEAKER) (test 0.12 K/ L 1.18-3.74 lyxy=842) MONOCYTES ABSOLUTE COUNT (BEAKER) (test 0.04 K/ L 0.24-0.36 qqpf=076) EOSINOPHILS ABSOLUTE COUNT (BEAKER) (test 0.00 K/ L 0.04-0.36 fchz=988) BASOPHILS ABSOLUTE COUNT (BEAKER) (test 0.02 K/ L 0.01-0.08 ugds=959) IMMATURE GRANULOCYTES-RELATIVE PERCENT (BEAKER) 0 % 0-1 (test pruc=5268) RAD, CHEST, 1 VIEW, NON [id number] 20:26:00Make sure patient is sitting upright.Reason for [...] MDReport Verified Date/Time: 06/16/2018 20:26:41 Reading Location: [address] Reading Room Electronically signed by: TEGAN ADEN M.D. on 03/2018 08:26 PM[facility] [id number] 19:49:00 Test Item Value Reference Range Comments SODIUM (BEAKER) (test 140 meq/L 136-145 tbug=261) POTASSIUM (BEAKER) (test 3.6 meq/L 3.5-5.1 Specimen slightly snqg=755) hemolyzed CHLORIDE (BEAKER) (test 110 meq/L 98-107 zuga=340) CO2 (BEAKER) (test 18 meq/L 22-29 sinj=718) BLOOD UREA NITROGEN 8 mg/dL 7-21 (BEAKER) (test lzcx=940) CREATININE (BEAKER) (test 0.70 mg/dL 0.57-1.25 Specimen slightly cfkc=765) hemolyzed GLUCOSE RANDOM (BEAKER) 98 mg/dL 70-105 (test itab=959) CALCIUM (BEAKER) (test 8.0 mg/dL 8.4-10.2 ncry=903) EGFR (DILLON) (test 90 mL/min/1.73 sq m ESTIMATED GFR IS NOT atst=9408) ACCURATE CREATININE CLEARANCE IN PREDICTING GLOMERULAR FILTRATION RATE. ESTIMATED GFR IS NOT APPLICABLE FOR DIALYSIS PATIENTS. HEMOGLOBIN AND [id number] 19:25:00 Test Item Value Reference Range Comments HEMOGLOBIN (DILLON) (test xaaq=496) 17.5 GM/DL 11.2-15.7 HEMATOCRIT (DILLON) (test tyol=849) 55.5 % 34.1-44.9 RAD, CHEST, PA OR AP, 1 [id number] 19:12:00Reason for exam:->post - opAddendum BeginsREPORT STATUS:A Addendum: Results discussed with Dr. Padilla from urology at 1910 hours. Signed: Tegan Aden Verified Date/Time: 06/16/2018 19:12:25 Reading Location: [address] Reading RoomAddendum EndsFINAL REPORT EXAMINATION: AP PORTABLE CHEST [...] Verified Date/Time: 06/16/2018 19:07:52 Reading Location : [address] Reading Room
--- NOTE | 2019-03-06 12:39 | ER ---
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 Transition of care: patient was not received from another setting of care. Onset of symptoms was March 06, 2019. Risk Assessment: Do you want to hurt yourself or someone else? Patient reports no desire to harm self or others. Initial Sepsis Screen: Does the patient meet any 2 criteria? No. Patient's initial sepsis screen is negative. Does the patient have a suspected source of infection? No. Patient's initial sepsis screen is negative. Care prior to arrival: None. 12:04 Method Of Arrival: Wheelchair iw 12:04 Acuity: ALISON 3 iw Triage Assessment: 12:47 General: Appears in no apparent distress. Behavior is calm. iw 12:47 Pain: Denies pain. 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 - Social history:: Smoking status: Patient uses tobacco products, smokes one pack cigarettes per day. - Ebola Screening: : Patient negative for fever greater than or equal to 101.5 degrees Fahrenheit, and additional compatible Ebola Virus Disease symptoms Patient denies exposure to infectious person Patient denies travel to an Ebola-affected area in the 21 days before illness onset No symptoms or risks identified at this time. - Family history:: not pertinent. Screenin:47 Abuse screen: Denies threats or abuse. Denies injuries from another. Nutritional iw screening: No deficits noted. Tuberculosis screening: No symptoms or risk factors identified. Fall Risk None identified. Assessment: 12:15 General: Appears in no apparent distress. Behavior is cooperative. iw Vital Signs: 12:10 BP 134 / 97; Pulse 103; Resp 18 S; Temp 99.4(TE); Pulse Ox 98% on R/A; Weight 44.45 kg iw (R); Height 5 ft. 2 in. (157.48 cm); Pain 9/10; 12:29 BP 128 / 86; Pulse 90; Resp 18; Pulse Ox 97% on R/A; hj 12:10 Body Mass Index 17.92 (44.45 kg, 157.48 cm) iw ED Course: 11:57 Chas Levi, RN is Primary Nurse. bp 11:59 Patient arrived in ED. as 11:59 None, None is Private Physician. as 12:08 Triage completed. iw 12:10 Arm band placed on. iw 12:26 Celestine Cha MD is Attending Physician. [facility] 12:47 Patient has correct armband on for positive identification. iw 12:47 No provider procedures requiring assistance completed. Patient did not have IV access iw during this emergency room visit. Administered Medications: No medications were administered Point of Care Testing: Blood Glucose: 12:25 Blood Glucose: 99 mg/dL; Ranges: Outcome: 12:39 Discharge ordered by . [facility] 12:46 Discharged to home via wheelchair, with family. iw 12:46 Condition: good 12:46 Discharge instructions given to patient, family, Instructed on discharge instructions, follow up and referral plans. medication usage, Demonstrated understanding of instructions, follow-up care, medications, Prescriptions given X 1. 12:49 Patient left the ED. iw Signatures: Celestine Cha MD MD cha Martinez, Amelia as Anette Alejo, RN RN Barry He RN RN Chas Silvestre, RN RN bp Corrections: (The following items were deleted from the chart) 12:08 12:04 Presenting complaint: Patient states: got over heated while at work, was working iw indoors but AC wasn't running well, started feeling dizzy, started shaking uncontrollably, also c/o headache iw
--- NOTE | 2019-03-06 12:40 | EDPHYS ---
Physician Documentation [facility] Name: Desire Green Age: 48 yrs Sex: Female : 1970 Arrival Date: 03/06/2019 Time: 11:59 Bed 8 Private MD: None, None ED Physician Celestine Cha HPI: 03/06 12:37 This 48 yrs old Female presents to ER via Wheelchair with complaints of vernell Shaking. 12:37 anxious at work, stressed. Onset: The symptoms/episode began/occurred just prior to [facility] arrival. Severity of symptoms: At their worst the symptoms were mild in the emergency department the symptoms have improved moderately. The patient has experienced similar episodes in the past, a few times. 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 - Social history:: Smoking status: Patient uses tobacco products, smokes one pack cigarettes per day. - Ebola Screening: : Patient negative for fever greater than or equal to 101.5 degrees Fahrenheit, and additional compatible Ebola Virus Disease symptoms Patient denies exposure to infectious person Patient denies travel to an Ebola-affected area in the 21 days before illness onset No symptoms or risks identified at this time. - Family history:: not pertinent. ROS: 12:37 Constitutional: Negative for fever, chills, and weight loss, Eyes: Negative for injury, vernell pain, redness, and discharge, ENT: Negative for injury, pain, and discharge, Neck: Negative for injury, pain, and swelling, Cardiovascular: Negative for chest pain, palpitations, and edema, Respiratory: Negative for shortness of breath, cough, wheezing, and pleuritic chest pain, Abdomen/GI: Negative for abdominal pain, nausea, vomiting, diarrhea, and constipation, Back: Negative for injury and pain, : Negative for injury, bleeding, discharge, and swelling, MS/Extremity: Negative for injury and deformity, Skin: Negative for injury, rash, and discoloration, Neuro: Negative for headache, weakness, numbness, tingling, and seizure, Allergy/Immunology: Negative for hives, rash, and allergies, Endocrine: Negative for neck swelling, polydipsia, polyuria, polyphagia, and marked weight changes, Hematologic/Lymphatic: Negative for swollen nodes, abnormal bleeding, and unusual bruising. 12:37 Psych: Positive for anxiety. Exam: 12:37 Constitutional: This is a well developed, well nourished patient who is awake, alert, vernell and in no acute distress. Head/Face: Normocephalic, atraumatic. Eyes: Pupils equal round and reactive to light, extra-ocular motions intact. Lids and lashes normal. Conjunctiva and sclera are non-icteric and not injected. Cornea within normal limits. Periorbital areas with no swelling, redness, or edema. ENT: Nares patent. No nasal discharge, no septal abnormalities noted. Tympanic membranes are normal and external auditory canals are clear. Oropharynx with no redness, swelling, or masses, exudates, or evidence of obstruction, uvula midline. Mucous membranes moist. Neck: Trachea midline, no thyromegaly or masses palpated, and no cervical lymphadenopathy. Supple, full range of motion without nuchal rigidity, or vertebral point tenderness. No Meningismus. Chest/axilla: Normal chest wall appearance and motion. Nontender with no deformity. No lesions are appreciated. Cardiovascular: Regular rate and rhythm with a normal S1 and S2. No gallops, murmurs, or rubs. Normal PMI, no JVD. No pulse deficits. Respiratory: Lungs have equal breath sounds bilaterally, clear to auscultation and percussion. No rales, rhonchi or wheezes noted. No increased work of breathing, no retractions or nasal flaring. Abdomen/GI: Soft, non-tender, with normal bowel sounds. No distension or tympany. No guarding or rebound. No evidence of tenderness throughout. Back: No spinal tenderness. No costovertebral tenderness. Full range of motion. Skin: Warm, dry with normal turgor. Normal color with no rashes, no lesions, and no evidence of cellulitis. MS/ Extremity: Pulses equal, no cyanosis. Neurovascular intact. Full, normal range of motion. Neuro: Awake and alert, GCS 15, oriented to person, place, time, and situation. Cranial nerves II-XII grossly intact. Motor strength 5/5 in all extremities. Sensory grossly intact. Cerebellar exam normal. Normal gait. Psych: Awake, alert, with orientation to person, place and time. Behavior, mood, and affect are within normal limits. 12:37 Musculoskeletal/extremity: Extremities: all appear grossly normal, with no appreciated pain with palpation, DVT Exam: No signs of deep vein thrombosis. no pain, no swelling, no tenderness, negative Homans' sign noted on exam, no appreciated bluish discoloration, no erythema, no increased warmth. Vital Signs: 12:10 BP 134 / 97; Pulse 103; Resp 18 S; Temp 99.4(TE); Pulse Ox 98% on R/A; Weight 44.45 kg iw (R); Height 5 ft. 2 in. (157.48 cm); Pain 9/10; 12:29 BP 128 / 86; Pulse 90; Resp 18; Pulse Ox 97% on R/A; hj 12:10 Body Mass Index 17.92 (44.45 kg, 157.48 cm) iw MDM: 12:26 Patient medically screened. [facility] 12:38 Data reviewed: vital signs, nurses notes. [facility] Administered Medications: No medications were administered Point of Care Testing: Blood Glucose: 12:25 Blood Glucose: 99 mg/dL; hj Ranges: Critical Glucose Levels:Adult <50 mg/dl or >400 mg/dl <40 mg/dl or >180 mg/dl Disposition: 03/06/19 12:39 Discharged to Home. Impression: Anxiety disorder, unspecified, Tobacco abuse counseling, Tobacco use. - Condition is Stable. - Discharge Instructions: Panic Attacks, Steps to Quit Smoking, Smoking Hazards, Steps to Quit Smoking, [id number], Panic Attacks, [id number]. - Prescriptions for Benadryl 25 mg Oral Capsule - take 1 capsule by ORAL route every 6 hours As needed; 30 tablet. - Work release form, Medication Reconciliation Form, Thank You Letter, Antibiotic Education, Prescription Opioid Use form. - Follow up: Private Physician; When: 2 - 3 days; Reason: Recheck today's complaints, Continuance of care, Re-evaluation by your physician. - Problem is new. - Symptoms have improved. Signatures: Celestine Cha MD MD cha Williams, Irene RN RN iw Corrections: (The following items were deleted from the chart) 12:49 12:39 03/06/2019 12:39 Discharged to Home. Impression: Anxiety disorder, unspecified; iw Tobacco abuse counseling; Tobacco use. Condition is Stable. Forms are Medication Reconciliation Form, Thank You Letter, Antibiotic Education, Prescription Opioid Use. Follow up: Private Physician; When: 2 - 3 days; Reason: Recheck today's complaints, Continuance of care, Re-evaluation by your physician. Problem is new. Symptoms have improved. vernell
[2019-03-06 12:56] VITALS: TEMP 99.4
[2019-03-06 12:58] VITALS: BP 128/86; O2SAT 97
== END 2019-03-06 12:49 | disposition home or self-care (01) ==
LOC: ER 11:52
DX: F41.9 Anxiety disorder, unspecified (principal); Z72.0 Tobacco use; Z71.6 Tobacco abuse counseling
CPT/HCPCS: 82962; 99282

== ENCOUNTER 2019-07-11 10:58 | Emergency (ER) | payer BC ==
--- OUTSIDE RECORDS SUMMARY | 2019-07-11 11:02 | XMS REPORT ---
:1970 Author Organization [facility] Address [address] [place] [address] Care Team Providers Name Role Phone LINK, [...] (BEAKER) VEILLONELLA From Anaerobic Bottle Only (test tqts=2744) SPECIES Veillonella speciesIdentification and susceptibility performed by:[facility], [address] [place] [id number] Penicillin G (test Susceptible 0-0.5 code=3) , Resistant <0 or >.5 Clindamycin (test Susceptible 0-2 , code=10) Resistant <0 or >2 Metronidazole (test Susceptible 0-8 , code=56) Resistant <0 or >8 Amoxicillin + Clavulanate (test code=21) Meropenem (test code=34) GRAM STAIN RESULT From anaerobic (BEAKER) (test bottle only: gram ajrj=9175) positive cocci in pairs BASIC METABOLIC [id number] 07:13:00 Test Item Value Reference Range Comments SODIUM (BEAKER) (test 135 meq/L 136-145 vmii=716) POTASSIUM (BEAKER) (test 3.4 meq/L 3.5-5.1 clys=096) CHLORIDE (BEAKER) (test 104 meq/L 98-107 hiwc=051) CO2 (BEAKER) (test 26 meq/L 22-29 qtsu=821) BLOOD UREA NITROGEN 6 mg/dL 7-21 (BEAKER) (test beno=008) CREATININE (BEAKER) (test 0.53 mg/dL 0.57-1.25 arqc=595) GLUCOSE RANDOM (BEAKER) 97 mg/dL 70-105 (test acrb=866) CALCIUM (BEAKER) (test 8.6 mg/dL 8.4-10.2 wodb=391) EGFR (BEAKER) (test 124 mL/min/1.73 sq m ESTIMATED GFR IS NOT sesv=0067) ACCURATE CREATININE CLEARANCE IN PREDICTING GLOMERULAR FILTRATION RATE. ESTIMATED GFR IS NOT APPLICABLE FOR DIALYSIS PATIENTS. CBC W/PLT COUNT & AUTO [id number] 06:40:00 Test Item Value Reference Range Comments WHITE BLOOD CELL COUNT (BEAKER) (test bnbk=790) 7.7 K/ L 3.5-10.5 RED BLOOD CELL COUNT (BEAKER) (test zrkh=687) 4.82 M/ L 3.93-5.22 HEMOGLOBIN (BEAKER) (test ilyx=598) 15.8 GM/DL 11.2-15.7 HEMATOCRIT (BEAKER) (test nqqg=446) 47.6 % 34.1-44.9 MEAN CORPUSCULAR VOLUME (BEAKER) (test fjql=454) 98.8 fL 79.4-94.8 MEAN CORPUSCULAR HEMOGLOBIN (BEAKER) (test 32.8 pg 25.6-32.2 fwad=892) MEAN CORPUSCULAR HEMOGLOBIN CONC (BEAKER) (test 33.2 GM/DL 32.2-35.5 heon=901) RED CELL DISTRIBUTION WIDTH (BEAKER) (test 14.7 % 11.7-14.4 toea=705) PLATELET COUNT (BEAKER) (test hztw=312) 144 K/CU MM 150-450 MEAN PLATELET VOLUME (BEAKER) (test wghi=915) 12.5 fL 9.4-12.3 NUCLEATED RED BLOOD CELLS (BEAKER) (test 0 /100 WBC 0-0 xmvj=602) NEUTROPHILS RELATIVE PERCENT (BEAKER) (test 51 % inxt=419) LYMPHOCYTES RELATIVE PERCENT (BEAKER) (test 28 % lmij=380) MONOCYTES RELATIVE PERCENT (BEAKER) (test 16 % peke=045) EOSINOPHILS RELATIVE PERCENT (BEAKER) (test 3 % cnjz=737) BASOPHILS RELATIVE PERCENT (BEAKER) (test 2 % xcjb=447) NEUTROPHILS ABSOLUTE COUNT (BEAKER) (test 3.93 K/ L 1.56-6.13 vpme=354) LYMPHOCYTES ABSOLUTE COUNT (BEAKER) (test 2.14 K/ L 1.18-3.74 oidi=605) MONOCYTES ABSOLUTE COUNT (BEAKER) (test 1.22 K/ L 0.24-0.36 djxi=550) EOSINOPHILS ABSOLUTE COUNT (BEAKER) (test 0.22 K/ L 0.04-0.36 oezd=364) BASOPHILS ABSOLUTE COUNT (BEAKER) (test 0.13 K/ L 0.01-0.08 vcvp=278) IMMATURE GRANULOCYTES-RELATIVE PERCENT (BEAKER) 1 % 0-1 (test idsz=9274) CBC W/PLT COUNT & AUTO [id number] 10:16:00 Test Item Value Reference Range Comments WHITE BLOOD CELL COUNT (BEAKER) (test xzhy=199) 12.6 K/ L 3.5-10.5 RED BLOOD CELL COUNT (BEAKER) (test thxy=194) 4.77 M/ L 3.93-5.22 HEMOGLOBIN (BEAKER) (test xitk=865) 16.2 GM/DL 11.2-15.7 HEMATOCRIT (BEAKER) (test lazw=520) 47.2 % 34.1-44.9 MEAN CORPUSCULAR VOLUME (BEAKER) (test vnlo=753) 99.0 fL 79.4-94.8 MEAN CORPUSCULAR HEMOGLOBIN (BEAKER) (test 34.0 pg 25.6-32.2 tyrj=713) MEAN CORPUSCULAR HEMOGLOBIN CONC (BEAKER) (test 34.3 GM/DL 32.2-35.5 hwqt=917) RED CELL DISTRIBUTION WIDTH (BEAKER) (test 14.6 % 11.7-14.4 tsyl=870) PLATELET COUNT (BEAKER) (test mgvg=536) 118 K/CU MM 150-450 MEAN PLATELET VOLUME (BEAKER) (test ykei=931) 11.9 fL 9.4-12.3 NUCLEATED RED BLOOD CELLS (BEAKER) (test 0 /100 WBC 0-0 kwdc=850) (CELLAVISION MANUAL DIFF)2018-06-21 10:16:00 Test Item Value Reference Range Comments NEUTROPHILS - REL (CELLAVISION)(BEAKER) (test 68 % eefz=6412) LYMPHOCYTES - REL (CELLAVISION)(BEAKER) (test 11 % lgpc=8485) MONOCYTES - REL (CELLAVISION)(BEAKER) (test 9 % jxuk=8416) EOSINOPHILS - REL (CELLAVISION)(BEAKER) (test 1 % egcv=4013) BASOPHILS - REL (CELLAVISION)(BEAKER) (test 2 % nouj=8121) BANDS - REL (CELLAVISION)(BEAKER) (test kddz=2407) 8 % 0-10 ATYPICAL LYMPHOCYTES - REL (CELLAVISION)(BEAKER) 1 % 0-0 (test cwam=3913) NEUTROPHILS - ABS (CELLAVISION)(BEAKER) (test 8.57 K/ul 1.56-6.13 vmnl=4483) LYMPHOCYTES - ABS (CELLAVISION)(BEAKER) (test 1.39 K/ul 1.18-3.74 jnyj=3349) MONOCYTES - ABS (CELLAVISION)(BEAKER) (test 1.13 K/uL 0.24-0.36 qshk=3441) EOSINOPHILS - ABS (CELLAVISION)(BEAKER) (test 0.13 K/uL 0.04-0.36 avdo=2715) BASOPHILS - ABS (CELLAVISION)(BEAKER) (test 0.25 K/uL 0.01-0.08 akyr=2232) BANDS - ABS (CELLAVISION)(BEAKER) (test telv=1443) 1.01 K/uL 0.00-0.80 ATYPICAL LYMPHOCYTES - ABS (CELLAVISION)(BEAKER) 0.13 K/uL 0.00-0.00 (test etmj=8127) TOTAL COUNTED (BEAKER) (test lqkn=6961) 100 WBC MORPHOLOGY (BEAKER) (test aynj=194) Normal PLT MORPHOLOGY (BEAKER) (test qchn=958) Normal ANISOCYTOSIS (BEAKER) (test mrav=879) 1+ few MACROCYTES (BEAKER) (test axwb=415) 1+ few POIKILOCYTES (BEAKER) (test xrdj=182) 1+ few ARTIFACT (CELLAVISION)(BEAKER) (test grnq=0163) Present PLATELET CONCENTRATION (CELLAVISION)(BEAKER) (test Decreased qrjo=5713) Received comment: User comments: Slide comments:FL, NETWORK INTERN IN OR/30 MINUTE [id number] 09:34:00Reason for exam:->PCNLFLUOROSCOPIC UNIT UTILIZED -NO INTERPRETATION REQUESTED. [facility] METABOLIC [id number] 07:28:00 Test Item Value Reference Range Comments SODIUM (BEAKER) (test 133 meq/L 136-145 mqrm=220) POTASSIUM (BEAKER) (test 3.7 meq/L 3.5-5.1 urso=905) CHLORIDE (BEAKER) (test 102 meq/L 98-107 eesk=680) CO2 (BEAKER) (test 25 meq/L 22-29 rdjf=560) BLOOD UREA NITROGEN 4 mg/dL 7-21 (BEAKER) (test jeiu=298) CREATININE (BEAKER) (test 0.56 mg/dL 0.57-1.25 rkxg=680) GLUCOSE RANDOM (BEAKER) 108 mg/dL 70-105 (test trrx=809) CALCIUM (BEAKER) (test 8.8 mg/dL 8.4-10.2 rqqx=085) EGFR (BEAKER) (test 116 mL/min/1.73 sq m ESTIMATED GFR IS NOT mkpa=4565) ACCURATE CREATININE CLEARANCE IN PREDICTING GLOMERULAR FILTRATION RATE. ESTIMATED GFR IS NOT APPLICABLE FOR DIALYSIS PATIENTS. COMPREHENSIVE METABOLIC [id number] 21:49:00 Test Item Value Reference Range Comments TOTAL PROTEIN (BEAKER) 5.9 gm/dL 6.0-8.3 (test ahtm=711) ALBUMIN (BEAKER) (test 2.9 g/dL 3.5-5.0 cfxg=4143) ALKALINE PHOSPHATASE 113 U/L 40-150 (BEAKER) (test rqes=896) BILIRUBIN TOTAL (BEAKER) 0.5 mg/dL 0.2-1.2 (test dsly=776) SODIUM (BEAKER) (test 135 meq/L 136-145 pwvj=346) POTASSIUM (BEAKER) (test 3.5 meq/L 3.5-5.1 hvnz=175) CHLORIDE (BEAKER) (test 102 meq/L 98-107 ssvs=599) CO2 (BEAKER) (test 26 meq/L 22-29 sbmb=328) BLOOD UREA NITROGEN 5 mg/dL 7-21 (BEAKER) (test pqpd=584) CREATININE (BEAKER) (test 0.58 mg/dL 0.57-1.25 tpdm=951) GLUCOSE RANDOM (BEAKER) 113 mg/dL 70-105 (test xkqp=660) CALCIUM (BEAKER) (test 8.9 mg/dL 8.4-10.2 yrmq=918) AST (SGOT) (BEAKER) (test 23 U/L 5-34 kbca=807) ALT (SGPT) (BEAKER) (test 26 U/L 6-55 vtnr=971) EGFR (BEAKER) (test 111 mL/min/1.73 sq ESTIMATED GFR IS NOT kipr=2331) m ACCURATE CREATININE CLEARANCE IN PREDICTING GLOMERULAR FILTRATION RATE. ESTIMATED GFR IS NOT APPLICABLE FOR DIALYSIS PATIENTS. URINE [id number] 06:28:00 Test Item Value Reference Range Comments CULTURE (BEAKER) (test imth=2593) No growth BASIC METABOLIC [id number] 05:41:00 Test Item Value Reference Range Comments SODIUM (BEAKER) (test 134 meq/L 136-145 ctca=985) POTASSIUM (BEAKER) (test 3.5 meq/L 3.5-5.1 tpme=068) CHLORIDE (BEAKER) (test 107 meq/L 98-107 pjyd=289) CO2 (BEAKER) (test 24 meq/L 22-29 ipxa=701) BLOOD UREA NITROGEN 5 mg/dL 7-21 (BEAKER) (test drbl=955) CREATININE (BEAKER) (test 0.55 mg/dL 0.57-1.25 fqvv=062) GLUCOSE RANDOM (BEAKER) 83 mg/dL 70-105 (test acgj=411) CALCIUM (BEAKER) (test 8.2 mg/dL 8.4-10.2 xquh=182) EGFR (BEAKER) (test 118 mL/min/1.73 sq m ESTIMATED GFR IS NOT lbzv=7754) ACCURATE CREATININE CLEARANCE IN PREDICTING GLOMERULAR FILTRATION RATE. ESTIMATED GFR IS NOT APPLICABLE FOR DIALYSIS PATIENTS. CBC (HEMOGRAM ONLY)2018-06-19 05:19:00 Test Item Value Reference Range Comments WHITE BLOOD CELL COUNT (BEAKER) (test xhtt=953) 11.4 K/ L 3.5-10.5 RED BLOOD CELL COUNT (BEAKER) (test yhni=304) 4.26 M/ L 3.93-5.22 HEMOGLOBIN (BEAKER) (test tash=364) 14.2 GM/DL 11.2-15.7 HEMATOCRIT (BEAKER) (test phqp=678) 43.7 % 34.1-44.9 MEAN CORPUSCULAR VOLUME (BEAKER) (test nzbc=379) 102.6 fL 79.4-94.8 MEAN CORPUSCULAR HEMOGLOBIN (BEAKER) (test 33.3 pg 25.6-32.2 vbzs=277) MEAN CORPUSCULAR HEMOGLOBIN CONC (BEAKER) (test 32.5 GM/DL 32.2-35.5 hayl=904) RED CELL DISTRIBUTION WIDTH (BEAKER) (test 15.2 % 11.7-14.4 eybo=594) PLATELET COUNT (BEAKER) (test zfbi=381) 88 K/CU MM 150-450 MEAN PLATELET VOLUME (BEAKER) (test qrjr=807) 12.1 fL 9.4-12.3 NUCLEATED RED BLOOD CELLS (BEAKER) (test 0 /100 WBC 0-0 nhek=345) BLOOD CULTURE IDENTIFICATION [id number] 00:53:00 Test Item Value Reference Range Comments LISTERIA MONOCYTOGENES (test vlba=4158517) Not detected Not detected STAPHYLOCOCCUS (test qdye=6119985) Not detected Not detected STAPHYLOCOCCUS AUREUS (test cccn=8949399) Not detected Not detected STREPTOCOCCUS (test ytnf=7449406) Not detected Not detected STREPTOCOCCUS AGALACTIAE (GROUP B) (test Not detected Not detected bcaf=7261668) STREPTOCOCCUS PNEUMONIAE (test mazj=1602552) Not detected Not detected STREPTOCOCCUS PYOGENES (GROUP A) (test Not detected Not detected cutz=1384212) ACINETOBACTER BAUMANNII (test yace=3062330) Not detected Not detected HAEMOPHILUS INFLUENZAE (test eulx=6311304) Not detected Not detected NEISSERIA MENINGITIDIS (test fjap=6923080) Not detected Not detected ENTEROBACTERIACEAE (test prwk=0327803) Not detected Not detected ENTEROBACTER CLOACOE COMPLEX (test Not detected Not detected cktr=8786014) KLEBSIELLA OXYTOCA (test hgkl=5413063) Not detected Not detected KLEBSIELLA PNEUMONIAE (test elix=0311) Not detected Not detected PROTEUS (test phxl=3953773) Not detected Not detected SERRATIA MARCESCENS (test zhxn=5706798) Not detected Not detected AMRIT ALBICANS (test akrl=1744038) Not detected Not detected AMRIT GLABRATA (test pjsm=4757796) Not detected Not detected AMRIT KRUSEI (test qmqn=3187378) Not detected Not detected AMRIT PARAPSILOSIS (test fjrv=0022183) Not detected Not detected AMRIT TROPICALIS (test fnqg=9687186) Not detected Not detected ESCHERICHIA COLI (test igtr=4034917) Not detected Not detected METHICILLIN-RESISTANCE GENE (test dcjr=4244595) Not detected VANCOMYCIN-RESISTANCE GENE (test nhlb=5504150) Not detected CARBAPENEM-RESISTANCE GENE (test llsd=3403816) Not detected ENTEROCOCCUS-BEAKER (test mrzh=2606322) Not detected Not detected PSEUDOMONAS AERUGINOSA-BEAKER (test Not detected Not detected vmzc=4907632) Other bacteria and resistance markers not targeted by this PCR panel cannot be excluded; therefore clinical correlation and follow up of serology, culture results, and other molecular studies is required. The results are not intended to be used as the sole means for clinical diagnosis or patient management decisions. This sample was tested at the [facility] using the TIDAL PETROLEUM Blood Culture ID Panel. It is FDA cleared and has been verified and approved by the [facility] for clinical use. This laboratory is CLIA-certified and College ofAmerican Pathologists (CAP)-accredited to perform high complexity testing.BASIC METABOLIC [id number] 06:14:00 Test Item Value Reference Range Comments SODIUM (BEAKER) (test 136 meq/L 136-145 jsvk=254) POTASSIUM (BEAKER) (test 3.6 meq/L 3.5-5.1 feff=258) CHLORIDE (BEAKER) (test 110 meq/L 98-107 pizh=621) CO2 (BEAKER) (test 24 meq/L 22-29 qeit=443) BLOOD UREA NITROGEN 7 mg/dL 7-21 (BEAKER) (test lomg=009) CREATININE (BEAKER) (test 0.56 mg/dL 0.57-1.25 heau=288) GLUCOSE RANDOM (BEAKER) 86 mg/dL 70-105 (test xfth=468) CALCIUM (BEAKER) (test 7.7 mg/dL 8.4-10.2 ntnj=174) EGFR (BEAKER) (test 116 mL/min/1.73 sq m ESTIMATED GFR IS NOT guaq=6195) ACCURATE CREATININE CLEARANCE IN PREDICTING GLOMERULAR FILTRATION RATE. ESTIMATED GFR IS NOT APPLICABLE FOR DIALYSIS PATIENTS. CBC (HEMOGRAM ONLY)2018-06-18 04:11:00 Test Item Value Reference Range Comments WHITE BLOOD CELL COUNT (BEAKER) (test rnau=289) 16.8 K/ L 3.5-10.5 RED BLOOD CELL COUNT (BEAKER) (test djif=537) 4.20 M/ L 3.93-5.22 HEMOGLOBIN (BEAKER) (test glrf=351) 14.1 GM/DL 11.2-15.7 HEMATOCRIT (BEAKER) (test vytj=192) 43.5 % 34.1-44.9 MEAN CORPUSCULAR VOLUME (BEAKER) (test ymkj=075) 103.6 fL 79.4-94.8 MEAN CORPUSCULAR HEMOGLOBIN (BEAKER) (test 33.6 pg 25.6-32.2 sozp=614) MEAN CORPUSCULAR HEMOGLOBIN CONC (BEAKER) (test 32.4 GM/DL 32.2-35.5 kjal=612) RED CELL DISTRIBUTION WIDTH (BEAKER) (test 15.8 % 11.7-14.4 jivs=333) PLATELET COUNT (BEAKER) (test ecjo=797) 102 K/CU MM 150-450 MEAN PLATELET VOLUME (BEAKER) (test vaxu=374) 12.1 fL 9.4-12.3 NUCLEATED RED BLOOD CELLS (BEAKER) (test 0 /100 WBC 0-0 vgls=246) LACTIC ACID, ARTERIAL, WHOLE [id number] 16:48:00 Test Item Value Reference Range Comments LACTATE BLOOD ARTERIAL (2) 1.5 mmol/L 0.5-2.2 Specimen slightly hemolyzed (BEAKER) (test hmcp=6048) URINALYSIS W/ REFLEX URINE [id number] 14:41:00 Test Item Value Reference Range Comments COLOR (BEAKER) (test vsuy=968) Yellow CLARITY (BEAKER) (test wykn=296) Clear SPECIFIC GRAVITY UA (BEAKER) (test uvgc=980) 1.006 1.001-1.035 PH UA (BEAKER) (test hchg=652) 6.0 5.0-8.0 PROTEIN UA (BEAKER) (test xlqc=880) 10 mg/dL Negative GLUCOSE UA (BEAKER) (test tcec=289) Negative Negative KETONES UA (BEAKER) (test cvwt=258) Negative Negative BILIRUBIN UA (BEAKER) (test hgbi=609) Negative Negative BLOOD UA (BEAKER) (test fsgv=300) Large Negative NITRITE UA (BEAKER) (test cxhg=732) Negative Negative LEUKOCYTE ESTERASE UA (BEAKER) (test sqdk=437) Large Negative UROBILINOGEN UA (BEAKER) (test xbbl=608) 0.2 mg/dL 0.2-1.0 RBC UA (BEAKER) (test ighv=832) 66 /HPF WBC UA (BEAKER) (test enuy=439) 57 /HPF BACTERIA (BEAKER) (test zbqe=751) Occasional MUCUS (BEAKER) (test fozt=5810) Rare SQUAMOUS EPITHELIAL (BEAKER) (test hxdv=850) 2 /HPF SOURCE(BEAKER) (test vdoo=1462) CBC W/PLT COUNT & AUTO [id number] 14:01:00 Test Item Value Reference Range Comments WHITE BLOOD CELL COUNT (BEAKER) (test bvup=981) 24.4 K/ L 3.5-10.5 RED BLOOD CELL COUNT (BEAKER) (test yjvb=334) 4.40 M/ L 3.93-5.22 HEMOGLOBIN (BEAKER) (test iksx=849) 14.9 GM/DL 11.2-15.7 HEMATOCRIT (BEAKER) (test iqzz=156) 47.0 % 34.1-44.9 MEAN CORPUSCULAR VOLUME (BEAKER) (test fqrj=109) 106.8 fL 79.4-94.8 MEAN CORPUSCULAR HEMOGLOBIN (BEAKER) (test 33.9 pg 25.6-32.2 mijc=130) MEAN CORPUSCULAR HEMOGLOBIN CONC (BEAKER) (test 31.7 GM/DL 32.2-35.5 npim=389) RED CELL DISTRIBUTION WIDTH (BEAKER) (test 15.7 % 11.7-14.4 nkow=222) PLATELET COUNT (BEAKER) (test uavc=797) 117 K/CU MM 150-450 MEAN PLATELET VOLUME (BEAKER) (test vhgx=101) 11.4 fL 9.4-12.3 NUCLEATED RED BLOOD CELLS (BEAKER) (test 0 /100 WBC 0-0 kqwp=266) (CELLAVISION MANUAL DIFF)2018-06-17 14:01:00 Test Item Value Reference Range Comments NEUTROPHILS - REL (CELLAVISION)(BEAKER) (test 74 % ywkq=3621) LYMPHOCYTES - REL (CELLAVISION)(BEAKER) (test 3 % xzmw=1544) BANDS - REL (CELLAVISION)(BEAKER) (test 23 % 0-10 qbzv=7090) NEUTROPHILS - ABS (CELLAVISION)(BEAKER) (test 18.06 K/ul 1.56-6.13 kxie=1465) LYMPHOCYTES - ABS (CELLAVISION)(BEAKER) (test 0.73 K/ul 1.18-3.74 yepo=2775) BANDS - ABS (CELLAVISION)(BEAKER) (test 5.61 K/uL 0.00-0.80 xsah=4488) TOTAL COUNTED (BEAKER) (test gksf=2099) 100 RBC MORPHOLOGY (BEAKER) (test hpjh=705) Normal WBC MORPHOLOGY (BEAKER) (test bgru=454) Normal PLT MORPHOLOGY (BEAKER) (test awhx=989) Normal ARTIFACT (CELLAVISION)(BEAKER) (test tbrk=8749) Present PLATELET CONCENTRATION (CELLAVISION)(BEAKER) Decreased (test yvdt=6677) Received comment: User comments: Slide comments:TROPONIN [id number] 13:38:00 Test Item Value Reference Range Comments TROPONIN I (BEAKER) (test zjuk=452) 0.28 ng/mL 0.00-0.03 Troponin I (TnI) levels [...] acidosis, acute neurological disease, and persistent tachyarrhythmia.CT, [id number] 10:24:00DO NOT GIVE ANY CONTRASTNO ORAL CONTRASTFINAL [...] Verified Date/Time : 06/17/2018 10:24:20 Reading Location: [facility] [id number] [facility] Consult Reading Room CREATINE KINASE (CK), TOTAL AND [id number] 10:20:00 Test Item Value Reference Range Comments CREATINE KINASE TOTAL (BEAKER) (test wcxq=190) 35 U/L 29-200 CREATINE KINASE-MB (BEAKER) (test wuug=414) 1.3 ng/mL 0.0-6.6 CREATINE KINASE-MB INDEX (BEAKER) (test klfj=034) 3.7 % CK-MB Reference Range:<6.7 Normal6.7-10.0 Borderline>10.0 AbnormalPOCT-LACTIC ACID, [id number] 09:23:00 Test Item Value Reference Range Comments POC-LACTIC ACID, VENOUS 3.4 mmol/L 0.9-1.7 TESTED AT [facility] [address] [facility] (BEAKER) (test fgiz=8501) [facility] [address] BASIC METABOLIC [id number] 05:29:00 Test Item Value Reference Range Comments SODIUM (BEAKER) (test 134 meq/L 136-145 ugsh=250) POTASSIUM (BEAKER) (test 3.8 meq/L 3.5-5.1 ikwb=719) CHLORIDE (BEAKER) (test 109 meq/L 98-107 jqvq=599) CO2 (BEAKER) (test 18 meq/L 22-29 xtpk=443) BLOOD UREA NITROGEN 8 mg/dL 7-21 (BEAKER) (test xklw=593) CREATININE (BEAKER) (test 0.67 mg/dL 0.57-1.25 qose=820) GLUCOSE RANDOM (BEAKER) 127 mg/dL 70-105 (test qzjt=012) CALCIUM (BEAKER) (test 7.2 mg/dL 8.4-10.2 luae=391) EGFR (BEAKER) (test 94 mL/min/1.73 sq m ESTIMATED GFR IS NOT yuhx=6046) ACCURATE CREATININE CLEARANCE IN PREDICTING GLOMERULAR FILTRATION RATE. ESTIMATED GFR IS NOT APPLICABLE FOR DIALYSIS PATIENTS. CBC (HEMOGRAM ONLY)2018-06-17 04:44:00 Test Item Value Reference Range Comments WHITE BLOOD CELL COUNT (BEAKER) (test thtn=024) 21.0 K/ L 3.5-10.5 RED BLOOD CELL COUNT (BEAKER) (test rnaq=687) 4.12 M/ L 3.93-5.22 HEMOGLOBIN (BEAKER) (test maea=752) 14.0 GM/DL 11.2-15.7 HEMATOCRIT (BEAKER) (test fwit=757) 43.3 % 34.1-44.9 MEAN CORPUSCULAR VOLUME (BEAKER) (test cnca=665) 105.1 fL 79.4-94.8 MEAN CORPUSCULAR HEMOGLOBIN (BEAKER) (test 34.0 pg 25.6-32.2 cfut=933) MEAN CORPUSCULAR HEMOGLOBIN CONC (BEAKER) (test 32.3 GM/DL 32.2-35.5 egtd=337) RED CELL DISTRIBUTION WIDTH (BEAKER) (test 15.5 % 11.7-14.4 kyyv=686) PLATELET COUNT (BEAKER) (test tpbg=801) 103 K/CU MM 150-450 MEAN PLATELET VOLUME (BEAKER) (test iudl=921) 10.9 fL 9.4-12.3 NUCLEATED RED BLOOD CELLS (BEAKER) (test 0 /100 WBC 0-0 zsnw=473) BASIC METABOLIC [id number] 21:41:00 Test Item Value Reference Range Comments SODIUM (BEAKER) (test 141 meq/L 136-145 xkqt=536) POTASSIUM (BEAKER) (test 3.4 meq/L 3.5-5.1 weao=055) CHLORIDE (BEAKER) (test 109 meq/L 98-107 xynk=180) CO2 (BEAKER) (test 23 meq/L 22-29 zugd=796) BLOOD UREA NITROGEN 8 mg/dL 7-21 (BEAKER) (test zweu=539) CREATININE (BEAKER) (test 0.68 mg/dL 0.57-1.25 gwce=779) GLUCOSE RANDOM (BEAKER) 115 mg/dL 70-105 (test diep=287) CALCIUM (BEAKER) (test 7.6 mg/dL 8.4-10.2 dsrb=689) EGFR (BEAKER) (test 93 mL/min/1.73 sq m ESTIMATED GFR IS NOT jesk=1381) ACCURATE CREATININE CLEARANCE IN PREDICTING GLOMERULAR FILTRATION RATE. ESTIMATED GFR IS NOT APPLICABLE FOR DIALYSIS PATIENTS. CBC W/PLT COUNT & AUTO [id number] 21:13:00 Test Item Value Reference Range Comments WHITE BLOOD CELL COUNT (BEAKER) (test bpnk=857) 9.2 K/ L 3.5-10.5 RED BLOOD CELL COUNT (BEAKER) (test xhph=211) 4.49 M/ L 3.93-5.22 HEMOGLOBIN (BEAKER) (test pwba=833) 15.3 GM/DL 11.2-15.7 HEMATOCRIT (BEAKER) (test rqzp=761) 47.2 % 34.1-44.9 MEAN CORPUSCULAR VOLUME (BEAKER) (test tahs=978) 105.1 fL 79.4-94.8 MEAN CORPUSCULAR HEMOGLOBIN (BEAKER) (test 34.1 pg 25.6-32.2 epfp=091) MEAN CORPUSCULAR HEMOGLOBIN CONC (BEAKER) (test 32.4 GM/DL 32.2-35.5 izbu=118) RED CELL DISTRIBUTION WIDTH (BEAKER) (test 15.6 % 11.7-14.4 xrms=020) PLATELET COUNT (BEAKER) (test rrgb=946) 104 K/CU MM 150-450 MEAN PLATELET VOLUME (BEAKER) (test ucyz=644) 10.6 fL 9.4-12.3 NUCLEATED RED BLOOD CELLS (BEAKER) (test 0 /100 WBC 0-0 idqg=563) NEUTROPHILS RELATIVE PERCENT (BEAKER) (test 98 % glpf=279) LYMPHOCYTES RELATIVE PERCENT (BEAKER) (test 1 % ffpu=237) MONOCYTES RELATIVE PERCENT (BEAKER) (test 0 % yibg=348) EOSINOPHILS RELATIVE PERCENT (BEAKER) (test 0 % jsfw=240) BASOPHILS RELATIVE PERCENT (BEAKER) (test 0 % vrty=527) NEUTROPHILS ABSOLUTE COUNT (BEAKER) (test 9.01 K/ L 1.56-6.13 pmno=960) LYMPHOCYTES ABSOLUTE COUNT (BEAKER) (test 0.12 K/ L 1.18-3.74 udit=506) MONOCYTES ABSOLUTE COUNT (BEAKER) (test 0.04 K/ L 0.24-0.36 vfis=203) EOSINOPHILS ABSOLUTE COUNT (BEAKER) (test 0.00 K/ L 0.04-0.36 ugsi=164) BASOPHILS ABSOLUTE COUNT (BEAKER) (test 0.02 K/ L 0.01-0.08 wook=111) IMMATURE GRANULOCYTES-RELATIVE PERCENT (BEAKER) 0 % 0-1 (test nzbf=7605) RAD, CHEST, 1 VIEW, NON [id number] 20:26:00Make sure patient is sitting upright.Reason for [...] MDReport Verified Date/Time: 06/16/2018 20:26:41 Reading Location: [address] Reading Room Electronically signed by: TEGAN ADEN M.D. on 03/2018 08:26 PM[facility] [id number] 19:49:00 Test Item Value Reference Range Comments SODIUM (BEAKER) (test 140 meq/L 136-145 qmnl=005) POTASSIUM (BEAKER) (test 3.6 meq/L 3.5-5.1 Specimen slightly jtlb=506) hemolyzed CHLORIDE (BEAKER) (test 110 meq/L 98-107 ilsv=787) CO2 (BEAKER) (test 18 meq/L 22-29 tylf=826) BLOOD UREA NITROGEN 8 mg/dL 7-21 (BEAKER) (test mgti=821) CREATININE (BEAKER) (test 0.70 mg/dL 0.57-1.25 Specimen slightly isil=472) hemolyzed GLUCOSE RANDOM (BEAKER) 98 mg/dL 70-105 (test iamd=081) CALCIUM (BEAKER) (test 8.0 mg/dL 8.4-10.2 nwui=852) EGFR (DILLON) (test 90 mL/min/1.73 sq m ESTIMATED GFR IS NOT czol=9599) ACCURATE CREATININE CLEARANCE IN PREDICTING GLOMERULAR FILTRATION RATE. ESTIMATED GFR IS NOT APPLICABLE FOR DIALYSIS PATIENTS. HEMOGLOBIN AND [id number] 19:25:00 Test Item Value Reference Range Comments HEMOGLOBIN (DILLON) (test qpqj=014) 17.5 GM/DL 11.2-15.7 HEMATOCRIT (DILLON) (test kkye=211) 55.5 % 34.1-44.9 RAD, CHEST, PA OR AP, 1 [id number] 19:12:00Reason for exam:->post - opAddendum BeginsREPORT STATUS:A Addendum: Results discussed with Dr. Padilla from urology at 1910 hours. Signed: Tegan Aden Verified Date/Time: 06/16/2018 19:12:25 Reading Location: [address] Reading RoomAddendum EndsFINAL REPORT EXAMINATION: AP [...] Verified Date/Time: 06/16/2018 19:07:52 Reading Location : [address] Reading Room
[2019-07-11] MEDS ORDERED: METHYLPREDNISOLONE 125 MG INJ ONE (14:40)
--- NOTE | 2019-07-11 14:54 | EDPHYS ---
Physician Documentation [facility] Name: Desire Green Age: 49 yrs Sex: Female : 1970 Arrival Date: 07/11/2019 Time: 11:08 Bed 9 Private MD: ED Physician Armen Patel HPI: 07/11 14:47 This 49 yrs old Female presents to ER via Ambulatory with complaints of la1 Facial Swelling. 14:47 Onset: The symptoms/episode began/occurred 3 day(s) ago. Associated signs and symptoms: la1 Pertinent positives: rash, Pertinent negatives: abdominal pain, chest pain, congestion, constipation, cough, diarrhea, dysuria, earache, seizure, sore throat, vomiting. Modifying factors: the patient symptoms are aggravated by movement. The patient has not experienced similar symptoms in the past. Pt with itchy, burning rash to CAYDEN arms, thorax, back, neck, and face that began three days ago. Denies any known possible causes other than a change in laundry detergents. Has taken benadryl at home without relief. 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 - Social history:: Smoking status: Patient uses tobacco products, smokes one pack cigarettes per day. - Ebola Screening: : Patient negative for fever greater than or equal to 101.5 degrees Fahrenheit, and additional compatible Ebola Virus Disease symptoms Patient denies exposure to infectious person Patient denies travel to an Ebola-affected area in the 21 days before illness onset No symptoms or risks identified at this time. ROS: 14:48 Constitutional: Negative for fever, chills, and weight loss, Eyes: Negative for injury, la1 pain, redness, and discharge, ENT: Negative for injury, pain, and discharge, Neck: Negative for injury, pain, and swelling, Cardiovascular: Negative for chest pain, palpitations, and edema, Respiratory: Negative for shortness of breath, cough, wheezing, and pleuritic chest pain, Abdomen/GI: Negative for abdominal pain, nausea, vomiting, diarrhea, and constipation, Back: Negative for injury and pain, MS/Extremity: Negative for injury and deformity, Skin: + for rash Exam: 14:48 Constitutional: This is a well developed, well nourished patient who is awake, alert, la1 and in no acute distress. Head/Face: Normocephalic, atraumatic. Eyes: Pupils equal round and reactive to light, extra-ocular motions intact. Periorbital areas with no swelling, redness, or edema. ENT: Nares patent. No nasal discharge, no septal abnormalities noted. Tympanic membranes are normal and external auditory canals are clear. Oropharynx with no redness, swelling, or masses, exudates, or evidence of obstruction, uvula midline. Mucous membranes moist. Neck: Trachea midline, no thyromegaly or masses palpated, and no cervical lymphadenopathy. Supple, full range of motion without nuchal rigidity, or vertebral point tenderness. No Meningismus. Chest/axilla: Normal chest wall appearance and motion. Nontender with no deformity. No lesions are appreciated. Cardiovascular: Regular rate and rhythm with a normal S1 and S2. No gallops, murmurs, or rubs. Normal PMI, no JVD. No pulse deficits. Respiratory: Lungs have equal breath sounds bilaterally, clear to auscultation No rales, rhonchi or wheezes noted. No increased work of breathing, no retractions or nasal flaring. Back: No spinal tenderness. No costovertebral tenderness. Full range of motion. 14:48 Skin: Appearance: normal except for affected area, rash a moderate rash is noted, rash can be described as macular, papular, urticarial, contact dermatitis, urticaria, on the face, back, chest, right arm, left arm and neck. Vital Signs: 11:36 BP 128 / 89; Pulse 75; Resp 17 S; Temp 98.1(O); Pulse Ox 100% on R/A; Weight 49.9 kg ca1 (R); Height 5 ft. 1 in. (154.94 cm) (R); Pain 10/10; 11:36 Body Mass Index 20.78 (49.90 kg, 154.94 cm) ca1 MDM: 14:23 Patient medically screened. la1 14:50 Data reviewed: vital signs, nurses notes, I have discussed the patient's la1 presentation/case with the attending Emergency Department Physician; and as a result, I will discharge patient. Data interpreted: Pulse oximetry: on room air is 100 %. Interpretation: normal. Counseling: I had a detailed discussion with the patient and/or guardian regarding: the historical points, exam findings, and any diagnostic results supporting the discharge/admit diagnosis, the need for outpatient follow up, a family practitioner, to return to the emergency department if symptoms worsen or persist or if there are any questions or concerns that arise at home. ED course: Rash is pruritic, blanchable, pt is afebrile and appears non-toxic with normal vital signs. Will given pt trial of steroids and instruct to FU with PCP or return to ED with worsening of symptoms. Administered Medications: 14:42 Drug: SOLU-Medrol 125 mg Route: IM; Site: right ventrogluteal; tr5 Disposition: 15:25 Co-signature as Attending Physician, Armen Patel MD. rn Disposition: 07/11/19 14:53 Discharged to Home. Impression: Rash and other nonspecific skin eruption. - Condition is Stable. - Discharge Instructions: Allergies, Adult, Rash, [id number], Allergies, [id number]. - Prescriptions for Benadryl 25 mg Oral Capsule - take 1 capsule by ORAL route every 6 hours As needed; 30 tablet. Prednisone 20 mg Oral Tablet - take 3 tablet by ORAL route once daily for 5 days; 15 tablet. Pepcid 20 mg Oral Tablet - take 1 tablet by ORAL route once daily for 10 days; 10 tablet. - Medication Reconciliation Form, Thank You Letter form. - Follow up: Private Physician; When: 2 - 3 days; Reason: Recheck today's complaints, Re-evaluation by your physician. Follow up: Emergency Department; When: As needed; Reason: Worsening of condition. - Problem is new. - Symptoms are unchanged. Signatures: Armen Patel MD MD rn [place], KELSEY-C CORK WIRER-Cla1 Mayda Thurston RN RN ca1 Je Orellana RN RN tr5 Corrections: (The following items were deleted from the chart) 14:58 14:53 07/11/2019 14:53 Discharged to Home. Impression: Rash and other nonspecific skin tr5 eruption. Condition is Stable. Forms are Medication Reconciliation Form, Thank You Letter, Antibiotic Education, Prescription Opioid Use. Follow up: Private Physician; When: 2 - 3 days; Reason: Recheck today's complaints, Re-evaluation by your physician. Follow up: Emergency Department; When: As needed; Reason: Worsening of condition. Problem is new. Symptoms are unchanged. la1
--- NOTE | 2019-07-11 14:54 | ER ---
Nurse's Notes [facility] Name: Desire Green Age: 49 yrs Sex: Female : 1970 Arrival Date: 07/11/2019 Time: 11:08 Bed 9 Private MD: Diagnosis: Rash and other nonspecific skin eruption Presentation: 07/11 11:31 Presenting complaint: Patient states: Woke up with swelling and redness all over my ca1 face, rash on both arms and behind my neck. Started 2 days ago, took Benadryl and did not help. Reports burning and itching, lightheadedness. Reports fever 2 days ago. Denies taking any new medication. Transition of care: patient was not received from another setting of care. Onset of symptoms was July 11, 2019. Risk Assessment: Do you want to hurt yourself or someone else? Patient reports no desire to harm self or others. Initial Sepsis Screen: Does the patient meet any 2 criteria? No. Patient's initial sepsis screen is negative. Does the patient have a suspected source of infection? Yes:. Care prior to arrival: Medication(s) given: Benadryl at 10am. 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 - Social history:: Smoking status: Patient uses tobacco products, smokes one pack cigarettes per day. - Ebola Screening: : Patient negative for fever greater than or equal to 101.5 degrees Fahrenheit, and additional compatible Ebola Virus Disease symptoms Patient denies exposure to infectious person Patient denies travel to an Ebola-affected area in the 21 days before illness onset No symptoms or risks identified at this time. Screenin:43 Abuse screen: Denies threats or abuse. Nutritional screening: No deficits noted. tr5 Tuberculosis screening: No symptoms or risk factors identified. Fall Risk None identified. Assessment: 14:43 General: Appears uncomfortable, Behavior is calm, cooperative, appropriate for age. tr5 Pain: Denies pain. Neuro: Level of Consciousness is awake, alert, obeys commands, Oriented to person, place, time, Tellers Supervisor are equal bilaterally. Cardiovascular: Heart tones present Capillary refill < 3 seconds Pulses are all present. Edema is absent. Respiratory: Airway is patent Respiratory effort is even, unlabored, Respiratory pattern is regular, symmetrical. GI: No signs and/or symptoms were reported involving the gastrointestinal system. : No signs and/or symptoms were reported regarding the genitourinary system. EENT: No signs and/or symptoms were reported regarding the EENT system. Derm: Rash noted that is macular, red. Derm: Reports itching, pain that is 6 out of 10 on a pain scale. Musculoskeletal: No signs and/or symptoms reported regarding the musculoskeletal system. Vital Signs: 11:36 BP 128 / 89; Pulse 75; Resp 17 S; Temp 98.1(O); Pulse Ox 100% on R/A; Weight 49.9 kg ca1 (R); Height 5 ft. 1 in. (154.94 cm) (R); Pain 10/10; 11:36 Body Mass Index 20.78 (49.90 kg, 154.94 cm) ca1 ED Course: 11:08 Patient arrived in ED. mr 11:36 Triage completed. ca1 11:36 Arm band placed on left wrist. ca1 14:23 Je Orellana, RN is Primary Nurse. tr5 14:23 [place] FNP-C is PHCP. la1 14:23 Armen Patel MD is Attending Physician. la1 14:43 Bed in low position. Call light in reach. Side rails up X 1. tr5 14:57 No provider procedures requiring assistance completed. Patient did not have IV access tr5 during this emergency room visit. Administered Medications: 14:42 Drug: SOLU-Medrol 125 mg Route: IM; Site: right ventrogluteal; tr5 Outcome: 14:53 Discharge ordered by . la1 14:57 Discharged to home ambulatory. tr5 14:57 Condition: stable 14:57 Discharge instructions given to patient, Instructed on discharge instructions, follow up and referral plans. medication usage, Demonstrated understanding of instructions, follow-up care, medications, Prescriptions given X 3. 14:58 Patient left the ED. tr5 Signatures: Holli Fitzpatrick mr Yoon, West, ZINC SKIMMER-C ZINC SKIMMER-Cla1 Mayda Thurston, RN RN ca1 Je Orellana, RN RN tr5
[2019-07-11 15:40] VITALS: BP 128/89; TEMP 98.1; O2SAT 100
== END 2019-07-11 14:58 | disposition home or self-care (01) ==
LOC: ER 10:58
DX: R21 Rash and other nonspecific skin eruption (principal); F17.210 Nicotine dependence, cigarettes, uncomplicated
CPT/HCPCS: 96372; 99283; J2930

== ENCOUNTER 2021-06-10 21:36 | Emergency (ER) | payer BC ==
[2021-06-10] MEDS ORDERED: TETANUS & DIPHTHERIA TOX,ADULT 0.5 ML VIAL ONE (22:44)
[2021-06-10] MEDS ORDERED: KETOROLAC 30 MG/ML INJ ONE (22:44)
[2021-06-10] MEDS ORDERED: LIDOCAINE 1% MPF 5 ML VIAL ONE (23:02)
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
[2021-06-11 02:17] VITALS: TEMP 98.1
[2021-06-11 02:20] VITALS: BP 96/67; O2SAT 97
--- NOTE | 2021-06-11 07:47 | RAD REPORT ---
EXAM DESCRIPTION: RAD - Forearm Left - 06/10/2021 10:58 pm CLINICAL HISTORY: Left forearm pain status post injury FINDINGS: No fracture is seen
--- NOTE | 2021-06-11 07:48 | RAD REPORT ---
EXAM DESCRIPTION: RAD - Forearm Right - 06/10/2021 10:58 pm CLINICAL HISTORY: Right arm pain status post fall FINDINGS: No fracture is seen. Soft tissue laceration
--- NOTE | 2021-06-11 11:45 | RAD REPORT ---
EXAM DESCRIPTION: CT - Head C Spine Cap Konstantin Con - 06/11/2021 6:47 am CLINICAL HISTORY: 51-year-old female with pain. COMPARISON: None. TECHNIQUE: CT brain without contrast. This exam was performed according to our departmental dose opt imization program which includes use of automated exposure control, adjustment of the mA and/or kV ac cording to patient size and/or use of iterative reconstruction technique. FINDINGS/IMPRESSION: Brain: The ventricles, sulci, and cisterns are symmetric and unremarkable. The altamirano-white matter different iation is preserved. There is no mass effect, midline shift, intra- or extra-axial fluid collection /acute hemorrhage. The osseous structures are unremarkable. The paranasal sinuses and mastoid air cells are clear. Incidental note is made of innumerable missing teeth, dental caries and periapical lucency. IMPRESSION: 1. No acute intracranial abnormalities. Cervical spine: There is normal alignment of the cervical spine without fracture or subluxation. The facets are dorota l in alignment bilaterally. The posterior elements including the spinous processes are intact. Straig htening of the cervical spine which may be secondary to positioning for the examination. Morphology and attenuation of the vertebral bodies and intervertebral disk spaces is compatible with mild multilevel degenerative change with mild posterior disk osteophyte complex present at C5-6 with mild bilateral neuroforaminal narrowing. Additional mild neuroforaminal narrowing present at C6-7. The pre-and paravertebral soft tissues are within normal limits. IMPRESSION: 1. Straightening of the cervical spine which may be secondary to positioning for the examination vers us spasm. 2. No fracture or acute subluxation. Chest, abdomen and pelvis: Chest: Evaluation through the lungs reveal no focal opacity, pleural effusion or pneumothorax. Linear opacity is identified at the level of the RIGHT upper lobe extending to the pleural surface ra ising the concern for scar. However there appears to be a more focal rounded component measuring 5 x 6 mm in transaxial dimension, (series 401, image seven). 2017 Fleischner Society Recommendations for Single Solid Lung Nodule Follow-Up based on size (average of long- and short-axis diameters) <6 mm Low-Risk Patient: No routine follow-up <6 mm High-Risk Patient: Optional CT at 12 months 6-8 mm Low-Risk Patient: CT at 6-[address] at 18-24 months 6-8 mm High-Risk Patient: CT at 6-[address] at 18-24 months Heart size is within normal limits. No pericardial effusion. Abdomen and pelvis: The liver, gallbladder, pancreas, spleen, bilateral kidneys and bilateral adrenal glands are within normal limits. Foci of calcification present within the bilateral renal collecting system measuring from 2 to 3 mm compatible with nonobstructing calculi. Exophytic cystic type struct ure is identified at the level of the hilar region of the LEFT kidney measuring 6 Hounsfield units an d overall measuring 1.7 cm compatible with a simple renal cyst. The vessels are patent and normal in caliber. No abdominopelvic lymph nodes are noted to be pathologically enlarged by CT measurement criteria. The bowel is within normal limits without abnormal bowel wall thickness or bowel dilation. No free air. No free abdominopelvic fluid collections. The appendix is within normal limits. Thickened appearance of the bladder wall may be secondary to incomplete distention, however can be se en in the setting of infectious or inflammatory process. Please correlate with laboratory values. The uterus and adnexa appear to be within normal limits of a noncontrast CT examination. Calcificatio n within the uterine body may reflect uterine leiomyomata. The osseous structures are within normal limits. IMPRESSION: 1. No specific acute intrathoracic or intra-abdominal findings are noted to suggest etiology of the p atient's pain. 2. 1.7 cm left-sided simple renal cyst. 3. Punctate foci of nonobstructing calculi within the bilateral renal pelvis. 4. Thickened appearance of the bladder wall may be secondary to incomplete distention, however can be seen in the setting of infectious or inflammatory process. Please correlate with laboratory values. 5. Linear opacity at the level of the RIGHT upper lobe raising the possibility of scar, however with appearance of more focal rounded component measuring up to 6 mm. Short-term interval follow-up is rec ommended for evaluation of stability or interval change. Electronically signed by: Kassandra Thakkar MD 06/10/2021 11:41 PM CDT Due to temporary technical issues with the PACS/Fluency reporting system, reports are being signed by the in house radiologist without review as a courtesy to ensure prompt reporting. The interpreting r adiologist is fully responsible for the content of the report.
== END 2021-06-11 02:08 | disposition home or self-care (01) ==
LOC: ER 21:36
PROC: 0JQG0ZZ Repair Right Lower Arm Subcutaneous Tissue and Fascia, Open Approach (ICD-10-PCS; principal; 2021-06-11)
DX: S51.811A Laceration without foreign body of right forearm, initial encounter (principal); X99.0XXA Assault by sharp glass, initial encounter; Y92.009 Unspecified place in unspecified non-institutional (private) residence as the place of occurrence of the external cause; F17.210 Nicotine dependence, cigarettes, uncomplicated; Z23 Encounter for immunization
CPT/HCPCS: 70450; 71250; 72125; 90471; 90714; 96372; 99284

== ENCOUNTER 2021-06-28 09:32 | Emergency (ER) | payer BC ==
--- OUTSIDE RECORDS SUMMARY | 2021-06-28 09:35 | XMS REPORT | Continuity of Care Document ---
:1970 Author Organization [facility] t Address [address] [place] [address] Dr. Agrawal [address] [place] [address] Care Team Providers Name Role Phone LINK, EDWARD Attending Clinician Unavailable LINK, EDWARD Admitting Clinician Unavailable Problems This patient has no known problems. Allergies, Adverse Reactions, Alerts This patient has no known allergies or adverse reactions. Medications This patient has no known medications. Procedures This patient has no known procedures. Results Test Description Test Time Test Comments Results Result Comments Source BLOOD CULTURE 2018-07-04 15:03:00 Test Item Value Reference Range Interpretation Comme nts CULTURE (BEAKER) VEILLONELLA A From Anaero bic Bottle Only (test code = 1095) SPECIES Veillonel la speciesIdentifi cation and susceptibility performed by:[facility], [address] [place] [id number] Penicillin G (test Susceptible 0-0.5 R code = 3) , Resistant <0 or >.5 Clindamycin (test Susceptible 0-2 , S code = 10) Resistant <0 or >2 Metronidazole (test Susceptible 0-8 , S code = 56) Resistant <0 or >8 Amoxicillin + S Clavulanate (test code = 21) Meropenem (test code S = 34) GRAM STAIN RESULT From anaerobic (BEAKER) (test code bottle only: gram = 1123) positive cocci in pairs BASIC METABOLIC [id number] 07:13:00 Test Item Value Reference Range Interpretation Comments SODIUM (BEAKER) 135 meq/L 136-145 L (test code = 381) POTASSIUM (BEAKER) 3.4 meq/L 3.5-5.1 L (test code = 379) CHLORIDE (BEAKER) 104 meq/L 98-107 (test code = 382) CO2 (BEAKER) (test 26 meq/L 22-29 code = 355) BLOOD UREA NITROGEN 6 mg/dL 7-21 L (BEAKER) (test code = 354) CREATININE (BEAKER) 0.53 mg/dL 0.57-1.25 L (test code = 358) GLUCOSE RANDOM 97 mg/dL 70-105 (BEAKER) (test code = 652) CALCIUM (BEAKER) 8.6 mg/dL 8.4-10.2 (test code = 697) EGFR (BEAKER) (test 124 mL/min/1.73 ESTIM ATED GFR IS code = 1092) sq m NOT ACCURATE CREATININE CLEARANCE IN PREDICTING GLOMERULAR FILTRATION RATE . ESTIMATED GFR I S NOT APPLICABLE FOR DIALYSIS PATIEN TS. CBC W/PLT COUNT & AUTO [id number] 06:40:00 Test Item Value Reference Range Interpretation Comments WHITE BLOOD CELL COUNT (BEAKER) 7.7 K/ L 3.5-10.5 (test code = 775) RED BLOOD CELL COUNT (BEAKER) 4.82 M/ L 3.93-5.22 (test code = 761) HEMOGLOBIN (BEAKER) (test code = 15.8 GM/DL 11.2-15.7 H 410) HEMATOCRIT (BEAKER) (test code = 47.6 % 34.1-44.9 H 411) MEAN CORPUSCULAR VOLUME (BEAKER) 98.8 fL 79.4-94.8 H (test code = 753) MEAN CORPUSCULAR HEMOGLOBIN 32.8 pg 25.6-32.2 H (BEAKER) (test code = 751) MEAN CORPUSCULAR HEMOGLOBIN CONC 33.2 GM/DL 32.2-35.5 (BEAKER) (test code = 752) RED CELL DISTRIBUTION WIDTH 14.7 % 11.7-14.4 H (BEAKER) (test code = 412) PLATELET COUNT (BEAKER) (test 144 K/CU MM 150-450 L code = 756) MEAN PLATELET VOLUME (BEAKER) 12.5 fL 9.4-12.3 H (test code = 754) NUCLEATED RED BLOOD CELLS 0 /100 WBC 0-0 (BEAKER) (test code = 413) NEUTROPHILS RELATIVE PERCENT 51 % (BEAKER) (test code = 429) LYMPHOCYTES RELATIVE PERCENT 28 % (BEAKER) (test code = 430) MONOCYTES RELATIVE PERCENT 16 % (BEAKER) (test code = 431) EOSINOPHILS RELATIVE PERCENT 3 % (BEAKER) (test code = 432) BASOPHILS RELATIVE PERCENT 2 % (BEAKER) (test code = 437) NEUTROPHILS ABSOLUTE COUNT 3.93 K/ L 1.56-6.13 (BEAKER) (test code = 670) LYMPHOCYTES ABSOLUTE COUNT 2.14 K/ L 1.18-3.74 (BEAKER) (test code = 414) MONOCYTES ABSOLUTE COUNT (BEAKER) 1.22 K/ L 0.24-0.36 H (test code = 415) EOSINOPHILS ABSOLUTE COUNT 0.22 K/ L 0.04-0.36 (BEAKER) (test code = 416) BASOPHILS ABSOLUTE COUNT (BEAKER) 0.13 K/ L 0.01-0.08 H (test code = 417) IMMATURE GRANULOCYTES-RELATIVE 1 % 0-1 PERCENT (BEAKER) (test code = 2801) CBC W/PLT COUNT & AUTO [id number] 10:16:00 Test Item Value Reference Range Interpretation Comments WHITE BLOOD CELL COUNT (BEAKER) 12.6 K/ L 3.5-10.5 H (test code = 775) RED BLOOD CELL COUNT (BEAKER) 4.77 M/ L 3.93-5.22 (test code = 761) HEMOGLOBIN (BEAKER) (test code = 16.2 GM/DL 11.2-15.7 H 410) HEMATOCRIT (BEAKER) (test code = 47.2 % 34.1-44.9 H 411) MEAN CORPUSCULAR VOLUME (BEAKER) 99.0 fL 79.4-94.8 H (test code = 753) MEAN CORPUSCULAR HEMOGLOBIN 34.0 pg 25.6-32.2 H (BEAKER) (test code = 751) MEAN CORPUSCULAR HEMOGLOBIN CONC 34.3 GM/DL 32.2-35.5 (BEAKER) (test code = 752) RED CELL DISTRIBUTION WIDTH 14.6 % 11.7-14.4 H (BEAKER) (test code = 412) PLATELET COUNT (BEAKER) (test 118 K/CU MM 150-450 L code = 756) MEAN PLATELET VOLUME (BEAKER) 11.9 fL 9.4-12.3 (test code = 754) NUCLEATED RED BLOOD CELLS 0 /100 WBC 0-0 (BEAKER) (test code = 413) (CELLAVISION MANUAL DIFF)2018-06-21 10:16:00 Test Item Value Reference Range Interpretation Comments NEUTROPHILS - REL 68 % (CELLAVISION)(BEAKER) (test code = 2816) LYMPHOCYTES - REL 11 % (CELLAVISION)(BEAKER) (test code = 2817) MONOCYTES - REL 9 % (CELLAVISION)(BEAKER) (test code = 2818) EOSINOPHILS - REL 1 % (CELLAVISION)(BEAKER) (test code = 2819) BASOPHILS - REL 2 % (CELLAVISION)(BEAKER) (test code = 2820) BANDS - REL (CELLAVISION)(BEAKER) 8 % 0-10 (test code = 2826) ATYPICAL LYMPHOCYTES - REL 1 % 0-0 H (CELLAVISION)(BEAKER) (test code = 2829) NEUTROPHILS - ABS 8.57 K/ul 1.56-6.13 H (CELLAVISION)(BEAKER) (test code = 2830) LYMPHOCYTES - ABS 1.39 K/ul 1.18-3.74 (CELLAVISION)(BEAKER) (test code = 2831) MONOCYTES - ABS 1.13 K/uL 0.24-0.36 H (CELLAVISION)(BEAKER) (test code = 2832) EOSINOPHILS - ABS 0.13 K/uL 0.04-0.36 (CELLAVISION)(BEAKER) (test code = 2834) BASOPHILS - ABS 0.25 K/uL 0.01-0.08 H (CELLAVISION)(BEAKER) (test code = 2835) BANDS - ABS (CELLAVISION)(BEAKER) 1.01 K/uL 0.00-0.80 H (test code = 2840) ATYPICAL LYMPHOCYTES - ABS 0.13 K/uL 0.00-0.00 H (CELLAVISION)(BEAKER) (test code = 2858) TOTAL COUNTED (BEAKER) (test code = 100 1351) WBC MORPHOLOGY (BEAKER) (test code Normal = 487) PLT MORPHOLOGY (BEAKER) (test code Normal = 486) ANISOCYTOSIS (BEAKER) (test code = 1+ few 961) MACROCYTES (BEAKER) (test code = 1+ few 964) POIKILOCYTES (BEAKER) (test code = 1+ few 966) ARTIFACT (CELLAVISION)(BEAKER) Present (test code = 3432) PLATELET CONCENTRATION Decreased (CELLAVISION)(BEAKER) (test code = 3438) Received comment: User comments: Slide comments:MARIVEL ARTIST MANNEQUIN COLORING IN OR/30 MINUTE [id number] 09:34:00Reason for exam:->PCNLFLUOROSCOPIC UNIT UTILIZED-NO INTERPRETATION REQUESTED. BASIC METABOLIC PANEL 2018-06-21 07:28:00 Test Item Value Reference Range Interpretation Comments SODIUM (BEAKER) 133 meq/L 136-145 L (test code = 381) POTASSIUM (BEAKER) 3.7 meq/L 3.5-5.1 (test code = 379) CHLORIDE (BEAKER) 102 meq/L 98-107 (test code = 382) CO2 (BEAKER) (test 25 meq/L 22-29 code = 355) BLOOD UREA NITROGEN 4 mg/dL 7-21 L (BEAKER) (test code = 354) CREATININE (BEAKER) 0.56 mg/dL 0.57-1.25 L (test code = 358) GLUCOSE RANDOM 108 mg/dL 70-105 H (BEAKER) (test code = 652) CALCIUM (BEAKER) 8.8 mg/dL 8.4-10.2 (test code = 697) EGFR (BEAKER) (test 116 mL/min/1.73 ESTIM ATED GFR IS code = 1092) sq m NOT ACCURATE CREATININE CLEARANCE IN PREDICTING GLOMERULAR FILTRATION RATE . ESTIMATED GFR I S NOT APPLICABLE FOR DIALYSIS PATIEN TS. COMPREHENSIVE METABOLIC [id number] 21:49:00 Test Item Value Reference Range Interpretation Comments TOTAL PROTEIN 5.9 gm/dL 6.0-8.3 L (BEAKER) (test code = 770) ALBUMIN (BEAKER) 2.9 g/dL 3.5-5.0 L (test code = 1145) ALKALINE PHOSPHATASE 113 U/L 40-150 (BEAKER) (test code = 346) BILIRUBIN TOTAL 0.5 mg/dL 0.2-1.2 (BEAKER) (test code = 377) SODIUM (BEAKER) (test 135 meq/L 136-145 L code = 381) POTASSIUM (BEAKER) 3.5 meq/L 3.5-5.1 (test code = 379) CHLORIDE (BEAKER) 102 meq/L 98-107 (test code = 382) CO2 (BEAKER) (test 26 meq/L 22-29 code = 355) BLOOD UREA NITROGEN 5 mg/dL 7-21 L (BEAKER) (test code = 354) CREATININE (BEAKER) 0.58 mg/dL 0.57-1.25 (test code = 358) GLUCOSE RANDOM 113 mg/dL 70-105 H (BEAKER) (test code = 652) CALCIUM (BEAKER) 8.9 mg/dL 8.4-10.2 (test code = 697) AST (SGOT) (BEAKER) 23 U/L 5-34 (test code = 353) ALT (SGPT) (BEAKER) 26 U/L 6-55 (test code = 347) EGFR (BEAKER) (test 111 ESTIMATE D GFR IS code = 1092) mL/min/1.73 sq NOT ACCURA TE m CREATININE CLEARANCE IN PREDICTING GLOMERULAR FILTRATION RATE . ESTIMATED GFR I S NOT APPLICABLE FOR DIALYSIS PATIEN TS. URINE [id number] 06:28:00 Test Item Value Reference Range Interpretation Comments CULTURE (BEAKER) (test code = 1095) No growth BASIC METABOLIC [id number] 05:41:00 Test Item Value Reference Range Interpretation Comments SODIUM (BEAKER) 134 meq/L 136-145 L (test code = 381) POTASSIUM (BEAKER) 3.5 meq/L 3.5-5.1 (test code = 379) CHLORIDE (BEAKER) 107 meq/L 98-107 (test code = 382) CO2 (BEAKER) (test 24 meq/L 22-29 code = 355) BLOOD UREA NITROGEN 5 mg/dL 7-21 L (BEAKER) (test code = 354) CREATININE (BEAKER) 0.55 mg/dL 0.57-1.25 L (test code = 358) GLUCOSE RANDOM 83 mg/dL 70-105 (BEAKER) (test code = 652) CALCIUM (BEAKER) 8.2 mg/dL 8.4-10.2 L (test code = 697) EGFR (BEAKER) (test 118 mL/min/1.73 ESTIM ATED GFR IS code = 1092) sq m NOT ACCURATE CREATININE CLEARANCE IN PREDICTING GLOMERULAR FILTRATION RATE . ESTIMATED GFR I S NOT APPLICABLE FOR DIALYSIS PATIEN TS. CBC (HEMOGRAM ONLY)2018-06-19 05:19:00 Test Item Value Reference Range Interpretation Comments WHITE BLOOD CELL COUNT (BEAKER) 11.4 K/ L 3.5-10.5 H (test code = 775) RED BLOOD CELL COUNT (BEAKER) 4.26 M/ L 3.93-5.22 (test code = 761) HEMOGLOBIN (BEAKER) (test code = 14.2 GM/DL 11.2-15.7 410) HEMATOCRIT (BEAKER) (test code = 43.7 % 34.1-44.9 411) MEAN CORPUSCULAR VOLUME (BEAKER) 102.6 fL 79.4-94.8 H (test code = 753) MEAN CORPUSCULAR HEMOGLOBIN 33.3 pg 25.6-32.2 H (BEAKER) (test code = 751) MEAN CORPUSCULAR HEMOGLOBIN CONC 32.5 GM/DL 32.2-35.5 (BEAKER) (test code = 752) RED CELL DISTRIBUTION WIDTH 15.2 % 11.7-14.4 H (BEAKER) (test code = 412) PLATELET COUNT (BEAKER) (test code 88 K/CU MM 150-450 L = 756) MEAN PLATELET VOLUME (BEAKER) 12.1 fL 9.4-12.3 (test code = 754) NUCLEATED RED BLOOD CELLS (BEAKER) 0 /100 WBC 0-0 (test code = 413) BLOOD CULTURE IDENTIFICATION [id number] 00:53:00 Test Item Value Reference Range Interpretation Comments LISTERIA MONOCYTOGENES (test Not detected Not detected code = 20160511) STAPHYLOCOCCUS (test code = Not detected Not detected 20160714) STAPHYLOCOCCUS AUREUS (test code Not detected Not detected = 20160715) STREPTOCOCCUS (test code = Not detected Not detected 6757376) STREPTOCOCCUS AGALACTIAE (GROUP Not detected Not detected B) (test code = 0366074) STREPTOCOCCUS PNEUMONIAE (test Not detected Not detected code = 4179430) STREPTOCOCCUS PYOGENES (GROUP A) Not detected Not detected (test code = 1719974) ACINETOBACTER BAUMANNII (test Not detected Not detected code = 0271059) HAEMOPHILUS INFLUENZAE (test Not detected Not detected code = 6967395) NEISSERIA MENINGITIDIS (test Not detected Not detected code = 4696884) ENTEROBACTERIACEAE (test code = Not detected Not detected 0499301) ENTEROBACTER CLOACOE COMPLEX Not detected Not detected (test code = 4903091) KLEBSIELLA OXYTOCA (test code = Not detected Not detected 8439699) KLEBSIELLA PNEUMONIAE (test code Not detected Not detected = 1650) PROTEUS (test code = 9991079) Not detected Not detected SERRATIA MARCESCENS (test code = Not detected Not detected 1509724) AMRIT ALBICANS (test code = Not detected Not detected 4309366) AMRIT GLABRATA (test code = Not detected Not detected 2020914) AMRIT KRUSEI (test code = Not detected Not detected 5487417) AMRIT PARAPSILOSIS (test code Not detected Not detected = 3409957) AMRIT TROPICALIS (test code = Not detected Not detected 7243975) ESCHERICHIA COLI (test code = Not detected Not detected 3166510) METHICILLIN-RESISTANCE GENE Not detected (test code = 8826702) VANCOMYCIN-RESISTANCE GENE (test Not detected code = 8733004) CARBAPENEM-RESISTANCE GENE (test Not detected code = 5047030) ENTEROCOCCUS-BEAKER (test code = Not detected Not detected 4392216) PSEUDOMONAS AERUGINOSA-BEAKER Not detected Not detected (test code = 9779035) Other bacteria and resistance markers not targeted by this PCR panel cannot be excluded; therefore clinical correlation and follow up of serology, culture results, and other molecular studies is required. The results are not intended to be used as the sole means for clinical diagnosis or patient management decisions. This sample was tested at the [facility] using the [employer] Blood Culture ID Panel. It is FDA cleared and has been verified and approved by the [facility] for clinical use. This laboratory is CLIA-certified and College ofAmerican Pathologists (CAP)-accredited to perform high complexity testing.BASIC METABOLIC [id number] 06:14:00 Test Item Value Reference Range Interpretation Comments SODIUM (BEAKER) 136 meq/L 136-145 (test code = 381) POTASSIUM (BEAKER) 3.6 meq/L 3.5-5.1 (test code = 379) CHLORIDE (BEAKER) 110 meq/L 98-107 H (test code = 382) CO2 (BEAKER) (test 24 meq/L 22-29 code = 355) BLOOD UREA NITROGEN 7 mg/dL 7-21 (BEAKER) (test code = 354) CREATININE (BEAKER) 0.56 mg/dL 0.57-1.25 L (test code = 358) GLUCOSE RANDOM 86 mg/dL 70-105 (BEAKER) (test code = 652) CALCIUM (BEAKER) 7.7 mg/dL 8.4-10.2 L (test code = 697) EGFR (BEAKER) (test 116 mL/min/1.73 ESTIM ATED GFR IS code = 1092) sq m NOT ACCURATE CREATININE CLEARANCE IN PREDICTING GLOMERULAR FILTRATION RATE . ESTIMATED GFR I S NOT APPLICABLE FOR DIALYSIS PATIEN TS. CBC (HEMOGRAM ONLY)2018-06-18 04:11:00 Test Item Value Reference Range Interpretation Comments WHITE BLOOD CELL COUNT (BEAKER) 16.8 K/ L 3.5-10.5 H (test code = 775) RED BLOOD CELL COUNT (BEAKER) 4.20 M/ L 3.93-5.22 (test code = 761) HEMOGLOBIN (BEAKER) (test code = 14.1 GM/DL 11.2-15.7 410) HEMATOCRIT (BEAKER) (test code = 43.5 % 34.1-44.9 411) MEAN CORPUSCULAR VOLUME (BEAKER) 103.6 fL 79.4-94.8 H (test code = 753) MEAN CORPUSCULAR HEMOGLOBIN 33.6 pg 25.6-32.2 H (BEAKER) (test code = 751) MEAN CORPUSCULAR HEMOGLOBIN CONC 32.4 GM/DL 32.2-35.5 (BEAKER) (test code = 752) RED CELL DISTRIBUTION WIDTH 15.8 % 11.7-14.4 H (BEAKER) (test code = 412) PLATELET COUNT (BEAKER) (test 102 K/CU MM 150-450 L code = 756) MEAN PLATELET VOLUME (BEAKER) 12.1 fL 9.4-12.3 (test code = 754) NUCLEATED RED BLOOD CELLS 0 /100 WBC 0-0 (BEAKER) (test code = 413) LACTIC ACID, ARTERIAL, WHOLE [id number] 16:48:00 Test Item Value Reference Range Interpretation Comments LACTATE BLOOD 1.5 mmol/L 0.5-2.2 Specimen sligh tly ARTERIAL (2) (BEAKER) hemoly zed (test code = 2874) URINALYSIS W/ REFLEX URINE [id number] 14:41:00 Test Item Value Reference Range Interpretation Comments COLOR (BEAKER) (test code = 470) Yellow CLARITY (BEAKER) (test code = 469) Clear SPECIFIC GRAVITY UA (BEAKER) (test 1.006 1.001-1.035 code = 468) PH UA (BEAKER) (test code = 467) 6.0 5.0-8.0 PROTEIN UA (BEAKER) (test code = 10 mg/dL Negative A 464) GLUCOSE UA (BEAKER) (test code = Negative Negative 365) KETONES UA (BEAKER) (test code = Negative Negative 371) BILIRUBIN UA (BEAKER) (test code = Negative Negative 462) BLOOD UA (BEAKER) (test code = Large Negative A 461) NITRITE UA (BEAKER) (test code = Negative Negative 465) LEUKOCYTE ESTERASE UA (BEAKER) Large Negative A (test code = 466) UROBILINOGEN UA (BEAKER) (test 0.2 mg/dL 0.2-1.0 code = 463) RBC UA (BEAKER) (test code = 519) 66 /HPF WBC UA (BEAKER) (test code = 520) 57 /HPF BACTERIA (BEAKER) (test code = Occasional 517) MUCUS (BEAKER) (test code = 1574) Rare SQUAMOUS EPITHELIAL (BEAKER) (test 2 /HPF code = 516) SOURCE(BEAKER) (test code = 2795) CBC W/PLT COUNT & AUTO [id number] 14:01:00 Test Item Value Reference Range Interpretation Comments WHITE BLOOD CELL COUNT (BEAKER) 24.4 K/ L 3.5-10.5 H (test code = 775) RED BLOOD CELL COUNT (BEAKER) 4.40 M/ L 3.93-5.22 (test code = 761) HEMOGLOBIN (BEAKER) (test code = 14.9 GM/DL 11.2-15.7 410) HEMATOCRIT (BEAKER) (test code = 47.0 % 34.1-44.9 H 411) MEAN CORPUSCULAR VOLUME (BEAKER) 106.8 fL 79.4-94.8 H (test code = 753) MEAN CORPUSCULAR HEMOGLOBIN 33.9 pg 25.6-32.2 H (BEAKER) (test code = 751) MEAN CORPUSCULAR HEMOGLOBIN CONC 31.7 GM/DL 32.2-35.5 L (BEAKER) (test code = 752) RED CELL DISTRIBUTION WIDTH 15.7 % 11.7-14.4 H (BEAKER) (test code = 412) PLATELET COUNT (BEAKER) (test 117 K/CU MM 150-450 L code = 756) MEAN PLATELET VOLUME (BEAKER) 11.4 fL 9.4-12.3 (test code = 754) NUCLEATED RED BLOOD CELLS 0 /100 WBC 0-0 (BEAKER) (test code = 413) (CELLAVISION MANUAL DIFF)2018-06-17 14:01:00 Test Item Value Reference Range Interpretation Comments NEUTROPHILS - REL 74 % (CELLAVISION)(BEAKER) (test code = 2816) LYMPHOCYTES - REL 3 % (CELLAVISION)(BEAKER) (test code = 2817) BANDS - REL (CELLAVISION)(BEAKER) 23 % 0-10 H (test code = 2826) NEUTROPHILS - ABS 18.06 K/ul 1.56-6.13 H (CELLAVISION)(BEAKER) (test code = 2830) LYMPHOCYTES - ABS 0.73 K/ul 1.18-3.74 L (CELLAVISION)(BEAKER) (test code = 2831) BANDS - ABS (CELLAVISION)(BEAKER) 5.61 K/uL 0.00-0.80 H (test code = 2840) TOTAL COUNTED (BEAKER) (test code 100 = 1351) RBC MORPHOLOGY (BEAKER) (test code Normal = 762) WBC MORPHOLOGY (BEAKER) (test code Normal = 487) PLT MORPHOLOGY (BEAKER) (test code Normal = 486) ARTIFACT (CELLAVISION)(BEAKER) Present (test code = 3432) PLATELET CONCENTRATION Decreased (CELLAVISION)(BEAKER) (test code = 3438) Received comment: User comments: Slide comments:TROPONIN [id number] 13:38:00 Test Item Value Reference Range Interpretation Comments TROPONIN I (BEAKER) (test code = 0.28 ng/mL 0.00-0.03 397) Troponin I (TnI) levels must be interpreted [...] acidosis, acute neurological disease, and persistent tachyarrhythmia.CT, [id number] 10:24:00DO NOT GIVE ANY CONTRASTNO ORAL CONTRASTFINAL REPORT CT scan of the abdomen and pelvis. CLINICAL HISTORY: Kidney stone, follow-up. COMPARISON STUDY: None available. TECHNIQUE: Contiguous helical slices were acquired thr ough the abdomen and pelvis without the administration [...] calculi are seen with approximately five identified m easuring up to 6 cm in the lower [...] described above. Signed: Ganesh Santizo MDReport Verified Date/Time: 06/17/2018 10:24:20 Reading Locati on: [facility] B1 [id number] Ortho Consult Reading Room CREATINE KINASE (CK), TOTAL AND MB 2018-06-17 10:20:00 Test Item Value Reference Range Interpretation Comments CREATINE KINASE TOTAL (BEAKER) 35 U/L 29-200 (test code = 380) CREATINE KINASE-MB (BEAKER) (test 1.3 ng/mL 0.0-6.6 code = 750) CREATINE KINASE-MB INDEX (BEAKER) 3.7 % (test code = 395) CK-MB Reference Range:<6.7 Normal6.7-10.0 Borderline>10.0 AbnormalPOCT-LACTIC ACID, [id number] 09:23:00 Test Item Value Reference Range Interpretation Comments POC-LACTIC ACID, 3.4 mmol/L 0.9-1.7 H TESTED AT [facility] [address] (BEAKER) (test [address] [place] code = 2805) [address] BASIC METABOLIC [id number] 05:29:00 Test Item Value Reference Range Interpretation Comments SODIUM (BEAKER) 134 meq/L 136-145 L (test code = 381) POTASSIUM (BEAKER) 3.8 meq/L 3.5-5.1 (test code = 379) CHLORIDE (BEAKER) 109 meq/L 98-107 H (test code = 382) CO2 (BEAKER) (test 18 meq/L 22-29 L code = 355) BLOOD UREA NITROGEN 8 mg/dL 7-21 (BEAKER) (test code = 354) CREATININE (BEAKER) 0.67 mg/dL 0.57-1.25 (test code = 358) GLUCOSE RANDOM 127 mg/dL 70-105 H (BEAKER) (test code = 652) CALCIUM (BEAKER) 7.2 mg/dL 8.4-10.2 L (test code = 697) EGFR (BEAKER) (test 94 mL/min/1.73 ESTIMA BREE GFR IS code = 1092) sq m NOT ACCURATE CREATININE CLEARANCE IN PREDICTING GLOMERULAR FILTRATION RATE . ESTIMATED GFR I S NOT APPLICABLE FOR DIALYSIS PATIEN TS. CBC (HEMOGRAM ONLY)2018-06-17 04:44:00 Test Item Value Reference Range Interpretation Comments WHITE BLOOD CELL COUNT (BEAKER) 21.0 K/ L 3.5-10.5 H (test code = 775) RED BLOOD CELL COUNT (BEAKER) 4.12 M/ L 3.93-5.22 (test code = 761) HEMOGLOBIN (BEAKER) (test code = 14.0 GM/DL 11.2-15.7 410) HEMATOCRIT (BEAKER) (test code = 43.3 % 34.1-44.9 411) MEAN CORPUSCULAR VOLUME (BEAKER) 105.1 fL 79.4-94.8 H (test code = 753) MEAN CORPUSCULAR HEMOGLOBIN 34.0 pg 25.6-32.2 H (BEAKER) (test code = 751) MEAN CORPUSCULAR HEMOGLOBIN CONC 32.3 GM/DL 32.2-35.5 (BEAKER) (test code = 752) RED CELL DISTRIBUTION WIDTH 15.5 % 11.7-14.4 H (BEAKER) (test code = 412) PLATELET COUNT (BEAKER) (test 103 K/CU MM 150-450 L code = 756) MEAN PLATELET VOLUME (BEAKER) 10.9 fL 9.4-12.3 (test code = 754) NUCLEATED RED BLOOD CELLS 0 /100 WBC 0-0 (BEAKER) (test code = 413) BASIC METABOLIC [id number] 21:41:00 Test Item Value Reference Range Interpretation Comments SODIUM (BEAKER) 141 meq/L 136-145 (test code = 381) POTASSIUM (BEAKER) 3.4 meq/L 3.5-5.1 L (test code = 379) CHLORIDE (BEAKER) 109 meq/L 98-107 H (test code = 382) CO2 (BEAKER) (test 23 meq/L 22-29 code = 355) BLOOD UREA NITROGEN 8 mg/dL 7-21 (BEAKER) (test code = 354) CREATININE (BEAKER) 0.68 mg/dL 0.57-1.25 (test code = 358) GLUCOSE RANDOM 115 mg/dL 70-105 H (BEAKER) (test code = 652) CALCIUM (BEAKER) 7.6 mg/dL 8.4-10.2 L (test code = 697) EGFR (BEAKER) (test 93 mL/min/1.73 ESTIMA BREE GFR IS code = 1092) sq m NOT ACCURATE CREATININE CLEARANCE IN PREDICTING GLOMERULAR FILTRATION RATE . ESTIMATED GFR I S NOT APPLICABLE FOR DIALYSIS PATIEN TS. CBC W/PLT COUNT & AUTO [id number] 21:13:00 Test Item Value Reference Range Interpretation Comments WHITE BLOOD CELL COUNT (BEAKER) 9.2 K/ L 3.5-10.5 (test code = 775) RED BLOOD CELL COUNT (BEAKER) 4.49 M/ L 3.93-5.22 (test code = 761) HEMOGLOBIN (BEAKER) (test code = 15.3 GM/DL 11.2-15.7 410) HEMATOCRIT (BEAKER) (test code = 47.2 % 34.1-44.9 H 411) MEAN CORPUSCULAR VOLUME (BEAKER) 105.1 fL 79.4-94.8 H (test code = 753) MEAN CORPUSCULAR HEMOGLOBIN 34.1 pg 25.6-32.2 H (BEAKER) (test code = 751) MEAN CORPUSCULAR HEMOGLOBIN CONC 32.4 GM/DL 32.2-35.5 (BEAKER) (test code = 752) RED CELL DISTRIBUTION WIDTH 15.6 % 11.7-14.4 H (BEAKER) (test code = 412) PLATELET COUNT (BEAKER) (test 104 K/CU MM 150-450 L code = 756) MEAN PLATELET VOLUME (BEAKER) 10.6 fL 9.4-12.3 (test code = 754) NUCLEATED RED BLOOD CELLS 0 /100 WBC 0-0 (BEAKER) (test code = 413) NEUTROPHILS RELATIVE PERCENT 98 % (BEAKER) (test code = 429) LYMPHOCYTES RELATIVE PERCENT 1 % (BEAKER) (test code = 430) MONOCYTES RELATIVE PERCENT 0 % (BEAKER) (test code = 431) EOSINOPHILS RELATIVE PERCENT 0 % (BEAKER) (test code = 432) BASOPHILS RELATIVE PERCENT 0 % (BEAKER) (test code = 437) NEUTROPHILS ABSOLUTE COUNT 9.01 K/ L 1.56-6.13 H (BEAKER) (test code = 670) LYMPHOCYTES ABSOLUTE COUNT 0.12 K/ L 1.18-3.74 L (BEAKER) (test code = 414) MONOCYTES ABSOLUTE COUNT (BEAKER) 0.04 K/ L 0.24-0.36 L (test code = 415) EOSINOPHILS ABSOLUTE COUNT 0.00 K/ L 0.04-0.36 L (BEAKER) (test code = 416) BASOPHILS ABSOLUTE COUNT (BEAKER) 0.02 K/ L 0.01-0.08 (test code = 417) IMMATURE GRANULOCYTES-RELATIVE 0 % 0-1 PERCENT (BEAKER) (test code = 2801) RAD, CHEST, 1 VIEW, NON [id number] 20:26:00Make sure patient is sitting upright.Reason for [...] CT may also be beneficial in further characteri zation if clinically appropriate. Signed: Tegan Aden MDReport Verified Date/Time: 06/16/2018 20:26:41 Reading Location: [address] Reading Room BASI METABOLIC [id number] 19:49:00 Test Item Value Reference Range Interpretation Comments SODIUM (BEAKER) 140 meq/L 136-145 (test code = 381) POTASSIUM (BEAKER) 3.6 meq/L 3.5-5.1 Specimen slightly (test code = 379) hemolyzed CHLORIDE (BEAKER) 110 meq/L 98-107 H (test code = 382) CO2 (BEAKER) (test 18 meq/L 22-29 L code = 355) BLOOD UREA NITROGEN 8 mg/dL 7-21 (BEAKER) (test code = 354) CREATININE (BEAKER) 0.70 mg/dL 0.57-1.25 Specimen slightly (test code = 358) hemolyzed GLUCOSE RANDOM 98 mg/dL 70-105 (BEAKER) (test code = 652) CALCIUM (BEAKER) 8.0 mg/dL 8.4-10.2 L (test code = 697) EGFR (BEAKER) (test 90 mL/min/1.73 ESTIMA BREE GFR IS code = 1092) sq m NOT ACCURATE CREATININE CLEARANCE IN PREDICTING GLOMERULAR FILTRATION RATE . ESTIMATED GFR I S NOT APPLICABLE FOR DIALYSIS PATIEN TS. HEMOGLOBIN AND [id number] 19:25:00 Test Item Value Reference Range Interpretation Comments HEMOGLOBIN (BEAKER) (test code = 17.5 GM/DL 11.2-15.7 H 410) HEMATOCRIT (BEAKER) (test code = 55.5 % 34.1-44.9 H 411) RAD, CHEST, PA OR AP, 1 [id number] 19:12:00Reason for exam:->post -op Addendum BeginsREPORT STATUS:A Addendum: Results discussed with Dr. Padilla from urology at 1910 hours. Signed: Tegan Aden Verified Date/Time: 06/16/2018 19:12:25 Reading Location: [address] Reading RoomAddendum EndsFINAL REPORT EX AMINATION: AP PORTABLE CHEST RADIOGRAPH CLINICAL INDICATION: Shortness [...] the appropriate on-call clinician. Signed: Tegan Aden MDReport Verified Date/Time: 06/16/2018 19:07:52 Reading Location: [address] Reading Room
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
--- NOTE | 2021-06-28 09:47 | EDPHYS ---
Physician Documentation [facility] Name: Desire Green Age: 51 yrs Sex: Female : 1970 Arrival Date: 06/28/2021 Time: 09:35 Bed 20 Private MD: ED Physician Armen Patel HPI: 06/28 09:43 This 51 yrs old Female presents to ER via Unassigned with complaints of rn suture removal. 09:43 The patient has sutures on the right arm. Previous treatment: The patient was initially rn treated 17 day(s) ago. Sutures/pamela progress: The patient has no c/o's. The wound is well-healing with no redness, swelling, discharge, or dehiscence reported. The patient has not experienced similar symptoms in the past. The patient has been recently seen by a physician:. Patient reports had a laceration sutured 2 weeks ago, returns today for suture removal. States healing well without signs of infection or drainage. No fever.. 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 - Social history:: Patient/guardian denies using alcohol, street drugs, IV drugs, caffeine, tobacco products, Smoking status: Patient denies any tobacco usage or history of. - Family history:: not pertinent. - Hospitalizations: : No recent hospitalization is reported. ROS: 09:43 Constitutional: Negative for fever, chills, and weight loss, MS/Extremity: + rn well-healing sutured wound to right forearm Exam: 09:43 Constitutional: This is a well developed, well nourished patient who is awake, alert, rn and in no acute distress. Skin: Warm, dry, no cellulitis, well-healed sutured wound right dorsal forearm, 4 sutures identified (pt states one fell out yesterday) MS/ Extremity: Pulses equal, no cyanosis. Neurovascular intact. Full, normal range of motion. Equal circumference. Vital Signs: 09:36 BP 130 / 85; Pulse 95; Resp 18; Temp 98.2(O); Pulse Ox 99% on R/A; Weight 41.73 kg; sl2 Height 5 ft. 2 in. (157.48 cm); 09:48 BP 130 / 85; Pulse 95; Resp 18; Temp 98.2; Pulse Ox 95% ; sl2 09:36 Body Mass Index 16.83 (41.73 kg, 157.48 cm) sl2 Procedures: 09:43 Suture/Staple removal: Removed 4 sutures, from right arm, site appears well healed, rn Patient tolerated well. MDM: 09:35 Patient medically screened. 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 Counseling: I had a detailed discussion with the patient and/or guardian regarding: the historical points, exam findings, and any diagnostic results supporting the discharge/admit diagnosis, the need for outpatient follow up, to return to the emergency department if symptoms worsen or persist or if there are any questions or concerns that arise at home. Special discussion: I discussed with the patient/guardian in detail that at this point there is no indication for admission to the hospital. It is understood, however, that if the symptoms persist or worsen the patient needs to return immediately for re-evaluation. Administered Medications: No medications were administered Disposition Summary: 06/28/21 09:46 Discharge Ordered Location: Home rn Problem: new rn Symptoms: have improved rn Condition: Stable rn Diagnosis - Encounter for removal of sutures rn Followup: rn - With: Private Physician - When: As needed - Reason: Recheck today's complaints, Re-evaluation by your physician Discharge Instructions: - Discharge Summary Sheet rn - Wound Closure Removal, Care After rn Forms: - Medication Reconciliation Form rn - Thank You Letter rn - Antibiotic filer metal patterns - Prescription Opioid Use rn Signatures: Armen Patel MD MD rn Landell, Sophia, RN RN 2
[2021-06-28 10:10] VITALS: BP 130/85; TEMP 98.2
[2021-06-28 10:12] VITALS: O2SAT 95
== END 2021-06-28 09:57 | disposition home or self-care (01) ==
LOC: ER 09:32
DX: Z48.02 Encounter for removal of sutures (principal)
CPT/HCPCS: 99283

== ENCOUNTER 2023-04-29 05:46 | Emergency (ER) | payer BC ==
--- OUTSIDE RECORDS SUMMARY | 2023-04-29 05:50 | XMS REPORT | Continuity of Care Document ---
:1970 Author Organization [facility] t Address [address] [place] [address] Care Team Providers Name Role Phone LINK, JONG BLANKENSHIP Attending Clinician Unavailable LINK, JONG BLANKENSHIP Admitting Clinician Unavailable Problems Condition Condition Condition Status Onset Resolution Last Treating Co mments Source Name Details Category Date Date Treatment Clinician Date Hypotensio Hypotensio Disease Active 2017-[address] [facility] 08[facility]18 [facility]: [facility] 00 [place] Nephrolith Nephrolith Disease Active 2017-[address] [facility]asis iasis 08-16 [facility] Allergies, Adverse Reactions, Alerts This patient has no known allergies or adverse reactions. Social History Social Habit Start Date Stop Date Quantity Comments Source History SDOH [facility] Alcohol [facility] History SDOH [facility] Alcohol Binge [facility] History of tobacco Occasional tobacco [facility] use smoker [facility] Alcohol intake 2018-06-23 2018-06-[address] [facility] 00:[facility]00 00:00:00 non-drinker of Medical Ce nter alcohol (finding) Cigarettes smoked 2018-06-15 2018-06-[address] [facility] current (pack per 00:00:00 00:00:00 Medical Center day) - Reported Cigarette 2018-06-15 2018-06-[address] [facility] pack-years 00:00:00 00:00:00 Medical Center Tobacco use and 2018-06-15 2018-06-15 Smokeless [address] [facility] exposure 00:00:00 00:00:00 non-user Medical Center History SDOH 2018-06-15 2018-06-[address] [facility] Alcohol Frequency 00:00:00 00:00:00 [facility] Center Sex Assigned At [birth year] DARWIN Luus 00:00:00 00:00:00 [facility] Smoking Status Start Date Stop Date Source Occasional tobacco smoker 2018-06-15 00:00:00 L[facility] Medications Ordered Filled Start Stop Current Ordering Indication Dosage Frequency Signature Comments Components Source Medication Medication Date Date Medication? Clinician (SIG) Name Name Missing or 2017-[address] Non-Formula 1-14 [facility] ry 23:24: Medical Medication [facility] Center tamsulosin 2017-08 Yes .4mg QD Take 1 [facility] (FLOMAX) 1-14 [facility] 0.4 mg Cap 00:00: (0.4 mg Medi renzo 24 hr 00 total) by Center capsule mouth daily. Procedures This patient has no known procedures. Results Test Description Test Time Test Comments Results Result Comments Source BLOOD CULTURE 2018-07-04 15:03:00 Test Item Value Reference Range Interpretation Comme nts CULTURE (BEAKER) VEILLONELLA A From Anaero bic Bottle Only (test code = 1095) SPECIES Veillonel la speciesIdentifi cation and susceptibility performed by:[facility], [address] [place] [address] Penicillin G (test Susceptible 0-0.5 R code [...] 1123) positive cocci in pairs BASIC METABOLIC [id number] 07:13:00 Test Item Value Reference Range Interpretation [...] PATIEN TS. 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 [...] APPLICABLE FOR DIALYSIS PATIEN TS. COMPREHENSIVE METABOLIC [id number] 21:49:00 Test Item Value Reference Range Interpretation [...] NOT APPLICABLE FOR DIALYSIS PATIEN TS. URINE [id number] 06:28:00 Test Item Value Reference Range Interpretation Comments CULTURE (BEAKER) (test code = 1095) No growth BASIC METABOLIC [id number] 05:41:00 Test Item Value Reference Range Interpretation [...] (test code = 413) BLOOD CULTURE IDENTIFICATION [id number] 00:53:00 Test Item Value Reference Range Interpretation Comments LISTERIA MONOCYTOGENES (test Not detected Not detected code = 20160511) STAPHYLOCOCCUS (test code = Not detected Not detected 20160714) STAPHYLOCOCCUS AUREUS (test code Not detected Not detected = 6267141) STREPTOCOCCUS (test code = Not detected Not detected 6370097) STREPTOCOCCUS AGALACTIAE (GROUP Not detected Not detected B) (test code = 7069470) STREPTOCOCCUS PNEUMONIAE (test Not detected Not detected code = 4569089) STREPTOCOCCUS PYOGENES (GROUP A) Not detected Not detected (test code = 0095400) ACINETOBACTER BAUMANNII (test Not detected Not detected code = 7077521) HAEMOPHILUS INFLUENZAE (test Not detected Not detected code = 6313639) NEISSERIA MENINGITIDIS (test Not detected Not detected code = 7860123) ENTEROBACTERIACEAE (test code = Not detected Not detected 3140660) ENTEROBACTER CLOACOE COMPLEX Not detected Not detected (test code = 0068843) KLEBSIELLA OXYTOCA (test code = Not detected Not detected 2539820) KLEBSIELLA PNEUMONIAE (test code Not detected Not detected = 1650) PROTEUS (test code = 9654329) Not detected Not detected SERRATIA MARCESCENS (test code = Not detected Not detected 3884201) AMRIT ALBICANS (test code = Not detected Not detected 2163559) AMRIT GLABRATA (test code = Not detected Not detected 8082666) AMRIT KRUSEI (test code = Not detected Not detected 3453556) AMRIT PARAPSILOSIS (test code Not detected Not detected = 9419493) AMRIT TROPICALIS (test code = Not detected Not detected 3944345) ESCHERICHIA COLI (test code = Not detected Not detected 4588107) METHICILLIN-RESISTANCE GENE Not detected (test code = 1352758) VANCOMYCIN-RESISTANCE GENE (test Not detected code = 5284615) CARBAPENEM-RESISTANCE GENE (test Not detected code = 9192344) ENTEROCOCCUS-BEAKER (test code = Not detected Not detected 6811293) PSEUDOMONAS AERUGINOSA-BEAKER Not detected Not detected (test code = 3287494) Other bacteria and resistance markers not targeted by this PCR panel cannot be excluded; therefore clinical correlation and follow up of serology, culture results, and other molecular studies is required. The results are not intended to be used as the sole means for clinical diagnosis or patient management decisions. This sample was tested at the [facility] using the [employer] Blood Culture ID Panel. It is FDA cleared and has been verified and approved by the [facility] for clinical use. This laboratory is CLIA-certified and College ofAmerican Pathologists (CAP)-accredited to perform high complexity testing.BASIC METABOLIC [id number] 06:14:00 Test Item Value Reference Range Interpretation [...] code = 413) LACTIC ACID, ARTERIAL, WHOLE [id number] 16:48:00 Test Item Value Reference Range Interpretation Comments LACTATE BLOOD 1.5 mmol/L 0.5-2.2 Specimen sligh tly ARTERIAL (2) (BEAKER) hemoly zed (test code = 2874) URINALYSIS W/ REFLEX URINE [id number] 14:41:00 Test Item Value Reference Range Interpretation [...] = 2795) CBC W/PLT COUNT & AUTO [id number] 14:01:00 Test Item Value Reference Range Interpretation [...] 3438) Received comment: User comments: Slide comments:TROPONIN [id number] 13:38:00 Test Item Value Reference Range Interpretation Comments TROPONIN I (BEAKER) (test code = 0.28 ng/mL 0.00-0.03 HH 397) Troponin I (TnI) levels must be [...] acidosis, acute neurological disease, and persistent tachyarrhythmia.CT, [id number] 10:24:00DO NOT GIVE ANY CONTRASTNO ORAL CONTRASTFINAL REPORT CT scan of the abdomen and pelvis. CLINICAL HISTORY: Kidney stone,follow-up. COMPARISON STUDY: None available. TECHNIQUE: Contiguous helical slices were acquired throu gh the abdomen and pelvis without the administration [...] calculi are seen with approximately five identified peña suring up to 6 cm in the lower [...] is seen extending from the kidney towards theskin surface, likely site of a recent nephrostomy [...] as described above. Signed: Ganesh Santizoeport Verified Date/Time: 06/17/2018 10:24:20 Reading Location: [address] Ortho Consult Reading Room CREATINE KINASE (CK), TOTAL AND MB 2018-06-17 10:20:00 Test Item Value Reference Range Interpretation Comments CREATINE KINASE TOTAL (BEAKER) 35 U/L 29-200 (test code = 380) CREATINE KINASE-MB (BEAKER) (test 1.3 ng/mL 0.0-6.6 code = 750) CREATINE KINASE-MB INDEX (BEAKER) 3.7 % (test code = 395) CK-MB Reference Range:<6.7 Normal6.7-10.0 Borderline>10.0 AbnormalPOCT- LACTIC ACID, [id number] 09:23:00 Test Item Value Reference Range Interpretation Comments POC-LACTIC ACID, 3.4 mmol/L 0.9-1.[address] [facility] [address] (BEAKER) (test [address] [place] code = 2805) [address] BASIC METABOLIC [id number] 05:29:00 Test Item Value Reference Range Interpretation [...] (BEAKER) (test code = 413) BASIC METABOLIC [id number] 21:41:00 Test Item Value Reference Range Interpretation [...] PATIEN TS. CBC W/PLT COUNT & AUTO [id number] 21:13:00 Test Item Value Reference Range Interpretation [...] = 2801) RAD, CHEST, 1 VIEW, NON [id number] 20:26:00Make sure patient is sitting upright.Reason for [...] No definite evidence of a pneumothorax. Continued short-termradiographic surveillance recommended for the findings detailed above including the small right basilar nodular opacity (benign versus malignant). Chest CT may also be beneficial in further characterization if clinically appropriate. Signed: Tegan Adenort Verified Date/Time: 06/16/2018 20:26:41 Reading Location: [address] Reading Room BASIC METABOLIC [id number] 19:49:00 Test Item Value Reference Range Interpretation [...] APPLICABLE FOR DIALYSIS PATIEN TS. HEMOGLOBIN AND [id number] 19:25:00 Test Item Value Reference Range Interpretation Comments HEMOGLOBIN (BEAKER) (test code = 17.5 GM/DL 11.2-15.7 H 410) HEMATOCRIT (BEAKER) (test code = 55.5 % 34.1-44.9 H 411) RAD, CHEST, PA OR AP, 1 [id number] 19:12:00Reason for exam:->post -op Addendum BeginsREPORT STATUS:A Addendum: Results discussed with Dr. Padilla from urology at 1910 hours. Signed: Tegan Adeneport Verified Date/Time: 06/16/2018 19:12:25 Reading Location: [address] Reading RoomAddendum EndsFINAL REPORT EXAMIN ATION: AP PORTABLE CHEST RADIOGRAPH CLINICAL INDICATION: Shortness of breath IMPRESSION: No comparison studies are available. Scattered thin curvilinear as well as reticular opacities are noted in bothlungs, most conspicuous in the perihilar regions along [...] the appropriate on-call clinician. Signed: Tegan Aden MDRepsac[facility] Verified Date/Time: 06/16/2018 19:07:52 Reading Location: [address] Reading Room
[2023-04-29 06:46] LABS: Absolute Lymphocytes (CBC) 1.9 K/uL (0.7-4.9); Lymphocytes % 26.3 % (15.3-44.8); MCV 100.5 fL (80-100); MPV 9.6 fL (7.6-11.3); Platelets 148 thou/uL (152-406); RBC Red Blood Cell Count 4.78 M/uL (3.86-4.86)
[2023-04-29] MEDS ORDERED: MORPHINE 4 MG/ML SYR ONE (06:46)
[2023-04-29] MEDS ORDERED: KETOROLAC 30 MG/ML INJ ONE (06:46)
[2023-04-29] MEDS ORDERED: ONDANSETRON 4 MG/2 ML VIAL ONE (06:47)
[2023-04-29] MEDS ORDERED: NA CHLORIDE 0.9% 1,000 ML ONE (06:47)
[2023-04-29] MEDS ORDERED: CEFTRIAXONE 1000 MG/VIAL ONE (06:56)
[2023-04-29 07:01] LABS: Albumin 3.7 g/dL (3.4-5.0); Bilirubin Total 0.3 mg/dL (0.2-1.0); Potassium 4.1 mEq/L (3.5-5.1); Protein, Total 7.9 g/dL (6.4-8.2)
[2023-04-29 07:15] LABS: Specific Gravity 1.023 (1.005-1.030); Urine Bacteria >50 /HPF (<20); Urine Bilirubin NEGATIVE (Negative); Urine Blood 3+ (OVER) (Negative); Urine Clarity Extremely Turbid (Clear); Urine Color Brown (Yellow); Urine Glucose NEGATIVE (Negative); Urine Mucus 4+ /HPF (None Seen); Urine Protein 1+ (Negative); Urine RBC >50 /HPF (None Seen); Urine Urobilinogen Normal (Normal); Urine pH 5.5 (5.0-7.0)
--- NOTE | 2023-04-29 08:28 | RAD REPORT ---
EXAM DESCRIPTION: CT - Stone Protocol - 04/29/2023 7:16 am CLINICAL HISTORY: Flank pain. KIDNEY STONES COMPARISON: <Comparisons> TECHNIQUE: Axial images were obtained without oral or IV contrast. Lack of contrast limits solid org an and vascular assessment. The [id number]-gx-htlx spans the entirety of the system partially obscuring uppermost abdomen and lung bases. Coronal reformatted images were obtained and reviewed. All CT scans are performed using dose optimization technique as appropriate and may include automated exposure control or mA/KV adjustment according to patient size. FINDINGS: The lower lung fermin are clear. Imaged portions of the liver and spleen show no suspicious findings on non-contrast imaging. The panc reas and adrenal glands are normal. No pathologic lymphadenopathy in the abdomen or pelvis. There is moderate right hydronephrosis and proximal hydroureter, caused by 4 mm stone proximal right ureter. Small calculi are present in both kidneys as well. 22 mm exophytic cyst posterior left kidney . No bowel obstruction, free air, free fluid or abscess. Normal appendix noted. No significant bony abnormality. IMPRESSION: Moderate right hydronephrosis and proximal right hydroureter is present caused by 4 mm s tone in the proximal right ureter. Additional bilateral caliceal nephrolithiasis is seen. No left-sided hydronephrosis.
--- NOTE | 2023-04-29 08:33 | EDPHYS ---
Physician Documentation [facility] Name: Desire Green Age: 53 yrs Sex: Female : 1970 Arrival Date: 04/29/2023 Time: 05:46 Bed 8 Private MD: NANCY Physician Celestine Cha HPI: 04/29 06:39 This 53 yrs old Female presents to ER via Ambulatory with complaints of vernell Vomiting, Abdominal Pain, KIDNEY PAIN. 06:39 The patient presents to the emergency department with nausea, vomiting, abdominal pain, vernell of the posterior aspect of right lateral abdomen and anterior aspect of right lateral abdomen. Onset: The symptoms/episode began/occurred just prior to arrival. Possible causes: unknown. The symptoms are aggravated by nothing. The symptoms are alleviated by nothing. Associated signs and symptoms: Pertinent positives: nausea, vomiting. Severity of symptoms: At their worst the symptoms were moderate severe in the emergency department the symptoms are unchanged. The patient has experienced similar episodes in the past, a few times. Historical: - Allergies: 06:18 No Known Allergies; as6 - PMHx: 06:18 Kidney stones; as6 - PSHx: 06:18 Lithotripsy; tubal ligation; as6 - Immunization history:: Client reports having NOT received the Covid vaccine. - Social history:: Smoking status: Patient/guardian denies using tobacco. ROS: 06:40 Constitutional: Negative for fever, chills, and weight loss, Eyes: Negative for injury, vernell pain, redness, and discharge, ENT: Negative for injury, pain, and discharge, Neck: Negative for injury, pain, and swelling, Cardiovascular: Negative for chest pain, palpitations, and edema, Respiratory: Negative for shortness of breath, cough, wheezing, and pleuritic chest pain, Back: Negative for injury and pain, : Negative for injury, bleeding, discharge, and swelling, MS/Extremity: Negative for injury and deformity, Skin: Negative for injury, rash, and discoloration, Neuro: Negative for headache, weakness, numbness, tingling, and seizure, Psych: Negative for depression, anxiety, suicide ideation, homicidal ideation, and hallucinations, Allergy/Immunology: Negative for hives, rash, and allergies, Endocrine: Negative for neck swelling, polydipsia, polyuria, polyphagia, and marked weight changes, Hematologic/Lymphatic: Negative for swollen nodes, abnormal bleeding, and unusual bruising, 06:40 Abdomen/GI: Positive for abdominal pain, nausea, vomiting, 06:40 Back: Positive for pain at rest, flank pain, on the right, Exam: 06:40 Constitutional: This is a well developed, well nourished patient who is awake, alert, vernell and in no acute distress. Head/Face: Normocephalic, atraumatic. Eyes: Pupils equal round and reactive to light, extra-ocular motions intact. Lids and lashes normal. Conjunctiva and sclera are non-icteric and not injected. Cornea within normal limits. Periorbital areas with no swelling, redness, or edema. ENT: Nares patent. No nasal discharge, no septal abnormalities noted. Tympanic membranes are normal and external auditory canals are clear. Oropharynx with no redness, swelling, or masses, exudates, or evidence of obstruction, uvula midline. Mucous membranes moist. Neck: Trachea midline, no thyromegaly or masses palpated, and no cervical lymphadenopathy. Supple, full range of motion without nuchal rigidity, or vertebral point tenderness. No Meningismus. Chest/axilla: Normal chest wall appearance and motion. Nontender with no deformity. No lesions are appreciated. Cardiovascular: Regular rate and rhythm with a normal S1 and S2. No gallops, murmurs, or rubs. Normal PMI, no JVD. No pulse deficits. Respiratory: Lungs have equal breath sounds bilaterally, clear to auscultation and percussion. No rales, rhonchi or wheezes noted. No increased work of breathing, no retractions or nasal flaring. Abdomen/GI: Soft, non-tender, with normal bowel sounds. No distension or tympany. No guarding or rebound. No evidence of tenderness throughout. Pelvic Exam: Normal external genitalia. Speculum exam with closed cervical os, no discharge or bleeding noted. Bimanual exam with normal adnexa, no adnexal or cervical motion tenderness. Normal uterus. Female : Normal external genitalia. Skin: Warm, dry with normal turgor. Normal color with no rashes, no lesions, and no evidence of cellulitis. MS/ Extremity: Pulses equal, no cyanosis. Neurovascular intact. Full, normal range of motion. Neuro: Awake and alert, GCS 15, oriented to person, place, time, and situation. Cranial nerves II-XII grossly intact. Motor strength 5/5 in all extremities. Sensory grossly intact. Cerebellar exam normal. Normal gait. Psych: Awake, alert, with orientation to person, place and time. Behavior, mood, and affect are within normal limits. 06:40 Back: pain, that is moderate, ROM is normal, normal spinal alignment noted, CVA tenderness, that is moderate, is noted on the right, vertebral tenderness, is not appreciated, Vital Signs: 06:18 BP 154 / 94; Pulse 84; Resp 20 S; Temp 98.2(TE); Pulse Ox 97% on R/A; Weight 49.9 kg as6 (R); Height 5 ft. 3 in. (R); Pain 9/10; 06:47 BP 130 / 83; Pulse 62; Resp 16; Pulse Ox 95% on R/A; kd3 08:24 BP 125 / 66; Pulse 94; Resp 16 S; Pulse Ox 98% on R/A; aa5 09:21 BP 124 / 76; Pulse 88; Resp 16; Pulse Ox 99% on R/A; Pain 2/10; hb 06:18 Body Mass Index 19.49 (49.90 kg, 160.02 cm) as6 06:18 Pain Scale: Adult as6 09:21 Pain Scale: Adult hb MDM: 06:11 Patient medically screened. vernell 06:19 Patient medically screened. [facility] 04/29 06:13 Order name: CBC with Diff; Complete Time: 07:18 vernell 04/29 06:13 Order name: CMP; Complete Time: 07:18 vernell 04/29 06:13 Order name: Lipase; Complete Time: 07:18 vernell 04/29 06:13 Order name: Urinalysis w/ reflexes; Complete Time: 07:18 vernell 04/29 07:18 Order name: Urine Culture [facility] 04/29 06:13 Order name: CT Stone Protocol; Complete Time: 08:32 vernell 04/29 06:13 Order name: IV Saline Lock; Complete Time: 06:32 vernell 04/29 06:13 Order name: Labs collected and sent; Complete Time: 06:33 [facility] Administered Medications: 06:43 Drug: NS 0.9% IV 1000 ml IV at 1 bolus Per protocol; 1000 mL bolus Route: IV; Rate: 1 kd3 bolus; Site: right antecubital; 08:25 Follow up: IV Status: Completed infusion; IV Intake: 1000ml aa5 06:43 Drug: Ondansetron IVP 4 mg IVP once; over 2 minutes Route: IVP; Site: right antecubital;kd3 07:11 Follow up: Response: No adverse reaction aa5 06:43 Drug: morphine IVP or IV 4 mg IVP once over 4 mins Route: IVP; Infused Over: 4 mins; kd3 Site: right antecubital; 07:11 Follow up: Response: No adverse reaction aa5 06:43 Drug: Ketorolac IVP 30 mg IVP once Route: IVP; Site: right antecubital; kd3 08:25 Follow up: Response: No adverse reaction aa5 06:47 Drug: Rocephin IV 1 grams IV at per protocol once; Given slow IV push per pharmacy kd3 instructions Route: IV; Rate: per protocol; Site: right antecubital; 08:25 Follow up: Response: No adverse reaction aa5 Disposition Summary: 04/29/23 08:32 Discharge Ordered Notes: Location: Home cp3 Problem: new cp3 Symptoms: have improved cp3 Condition: Stable cp3 Diagnosis - Vomiting cp3 - Hydronephrosis with renal and ureteral calculous obstruction cp3 Followup: vernell - With: Private Physician - When: 2 - 3 days - Reason: Recheck today's complaints, Continuance of care, Re-evaluation by your physician Followup: vernell - With: Christiano Yoon MD - When: 2 - 3 days - Reason: Recheck today's complaints, Re-evaluation by your physician Discharge Instructions: - Discharge Summary Sheet vernell - Kidney Stones evrnell - Kidney Stones, [id number] vernell - Hydronephrosis vernell - Dietary Guidelines to Help Prevent Kidney Stones vernell - Vomiting, Adult vernell Forms: - Medication Reconciliation Form cp3 - Thank You Letter cp3 - Antibiotic Education cp3 - Prescription Opioid Use cp3 - Patient Portal Instructions cp3 - Leadership Thank You Letter cp3 Prescriptions: - Flomax 0.4 mg Oral capsule - take 1 capsule ORAL route every day at bedtime; 30 capsule; Refills: 0, Product vernell Selection Permitted - acetaminophen-codeine 300-30 mg Oral tablet - take 2 tablet ORAL route every 6 hours as needed for pain; 24 tablet; Refills: vernell 0, Product Selection Permitted - ondansetron 4 mg Oral Tablet,disintegrating - take 1 tablet ORAL route every 6 hours for 5 days; 20 tablet; Refills: 0, vernell Product Selection Permitted - Cipro 250 mg Oral tablet - take 1 tablet ORAL route every 12 hours; 14 tablet; Refills: 0, Product [facility] Selection Permitted Signatures: Dispatcher [employer] Celestine Pérez MD MD cha Pinckney, Cwanza, MD MD cp3 Masoud Olsen RN RN as6 Dedra Anne RN RN kd3 Akiko Alvarado RN aa5
--- NOTE | 2023-04-29 08:33 | ER ---
Nurse's Notes [facility] Name: Desire Green Age: 53 yrs Sex: Female : 1970 Arrival Date: 04/29/2023 Time: 05:46 Bed 8 Private MD: Diagnosis: Vomiting;Hydronephrosis with renal and ureteral calculous obstruction Presentation: 04/29 06:18 Chief complaint: Patient states: "I think I have a kidney stone" pt c/o pain to right as6 flank. Coronavirus screen: At this time, the client does not indicate any symptoms associated with coronavirus-19. Ebola Screen: No symptoms or risks identified at this time. Initial Sepsis Screen: Does the patient meet any 2 criteria? No. Patient's initial sepsis screen is negative. Does the patient have a suspected source of infection? No. Patient's initial sepsis screen is negative. Risk Assessment: Do you want to hurt yourself or someone else? Patient reports no desire to harm self or others. Onset of symptoms was April 29, 2023 at 03:00. 06:18 Acuity: ALISON 3 as6 06:18 Method Of Arrival: Ambulatory as6 Triage Assessment: 06:48 General: Appears uncomfortable. GI: Reports lower abdominal pain. kd3 Historical: - Allergies: 06:18 No Known Allergies; as6 - PMHx: 06:18 Kidney stones; as6 - PSHx: 06:18 Lithotripsy; tubal ligation; as6 - Immunization history:: Client reports having NOT received the Covid vaccine. - Social history:: Smoking status: Patient/guardian denies using tobacco. Screenin:48 [facility] ED Fall Risk Assessment (Adult) History of falling in the last 3 months, kd3 including since admission No falls in past 3 months (0 pts) Confusion or Disorientation No (0 pts) Intoxicated or Sedated No (0 pts) Impaired Gait No (0 pts) Mobility Assist Device Used No (0 pt) Altered Elimination No (0 pt) Score/Fall Risk Level 0 - 2 = Low Risk Maintained a safe environment. Abuse screen: Denies threats or abuse. Denies injuries from another. Nutritional screening: No deficits noted. Tuberculosis screening: No symptoms or risk factors identified. Assessment: 06:47 General: Appears uncomfortable, Behavior is cooperative, anxious. Pain: Complains of kd3 pain in anterior aspect of right lateral abdomen and posterior aspect of right lateral abdomen. Neuro: Level of Consciousness is awake, alert, obeys commands, Oriented to person, place, time, situation. Cardiovascular: Patient's skin is warm and dry. GI: Abdomen is non-distended. 07:11 Reassessment: Pt to CT via stretcher . aa5 08:00 Reassessment: Pt sleeping, easy to awaken to verbal stimuli, equal and unlabored aa5 respirations, skin is pink/warm/dry. . 08:24 Reassessment: Pt sleeping . aa5 08:24 Reassessment: Awaiting CT scan result.. aa5 09:21 Reassessment: Patient appears in no apparent distress at this time. Patient and/or hb family updated on plan of care and expected duration. Pain level reassessed. Vital Signs: 06:18 BP 154 / 94; Pulse 84; Resp 20 S; Temp 98.2(TE); Pulse Ox 97% on R/A; Weight 49.9 kg as6 (R); Height 5 ft. 3 in. (R); Pain 9/10; 06:47 BP 130 / 83; Pulse 62; Resp 16; Pulse Ox 95% on R/A; kd3 08:24 BP 125 / 66; Pulse 94; Resp 16 S; Pulse Ox 98% on R/A; aa5 09:21 BP 124 / 76; Pulse 88; Resp 16; Pulse Ox 99% on R/A; Pain 2/10; hb 06:18 Body Mass Index 19.49 (49.90 kg, 160.02 cm) as6 06:18 Pain Scale: Adult as6 09:21 Pain Scale: Adult hb ED Course: 05:52 Patient arrived in ED. es 06:11 Celestine Cha MD is Attending Physician. vernell 06:18 Arm band placed on. as6 06:21 Triage completed. as6 06:32 Dedra Anne, NAEEM is Primary Nurse. kd3 06:33 CBC with Diff Sent. kd3 06:33 CMP Sent. kd3 06:33 Lipase Sent. kd3 06:35 Inserted saline lock: 22 gauge in right antecubital area, using aseptic technique. oe Blood collected. 06:48 Patient has correct armband on for positive identification. Provided Education on: . kd3 07:17 CT Stone Protocol In Process Unspecified. EDMS 08:32 Christiano Yoon MD is Referral Physician. cp3 09:21 No provider procedures requiring assistance completed. IV discontinued, intact, hb bleeding controlled, No redness/swelling at site. Administered Medications: 06:43 Drug: NS 0.9% IV 1000 ml IV at 1 bolus Per protocol; 1000 mL bolus Route: IV; Rate: 1 kd3 bolus; Site: right antecubital; 08:25 Follow up: IV Status: Completed infusion; IV Intake: 1000ml aa5 06:43 Drug: Ondansetron IVP 4 mg IVP once; over 2 minutes Route: IVP; Site: right antecubital;kd3 07:11 Follow up: Response: No adverse reaction aa5 06:43 Drug: morphine IVP or IV 4 mg IVP once over 4 mins Route: IVP; Infused Over: 4 mins; kd3 Site: right antecubital; 07:11 Follow up: Response: No adverse reaction aa5 06:43 Drug: Ketorolac IVP 30 mg IVP once Route: IVP; Site: right antecubital; kd3 08:25 Follow up: Response: No adverse reaction aa5 06:47 Drug: Rocephin IV 1 grams IV at per protocol once; Given slow IV push per pharmacy kd3 instructions Route: IV; Rate: per protocol; Site: right antecubital; 08:25 Follow up: Response: No adverse reaction aa5 Medication: 06:48 VIS not applicable for this client. kd3 Intake: 08:25 IV: 1000ml; Total: 1000ml. aa5 Outcome: 08:32 Discharge ordered by . cp3 09:21 Discharged to home ambulatory, hb 09:21 Condition: stable 09:21 Discharge instructions given to patient, Instructed on discharge instructions, follow up and referral plans. medication usage, Demonstrated understanding of instructions, follow-up care, medications, Prescriptions given X 4, 09:21 Patient left the ED. hb Signatures: Dispatcher [employer] [facility] Celestine Cha MD MD cha Pinckney, Cwanza, MD MD cp3 Eugenia Vides Audri RN RN aa5 Ophelia Castelan RN RN Toro Mercado Ashby, RN RN as6 Omid, Dedra, RN RN kd3
[2023-04-29 10:21] VITALS: TEMP 98.2
[2023-04-29 10:25] VITALS: BP 124/76; O2SAT 99
== END 2023-04-29 09:21 | disposition home or self-care (01) ==
LOC: ER 05:46
DX: N13.2 Hydronephrosis with renal and ureteral calculous obstruction (principal); Z87.442 Personal history of urinary calculi
CPT/HCPCS: 96361; 87088; 85025; 81001; 87086; 36415; 83690; 80053; 76377; 74176; 96375; 96374; 99284; J2405; J7030; J0696